=== PATIENT | male | born 1975 | race Caucasian/White ===

== ENCOUNTER 2022-12-19 10:10 | Inpatient (IN) | payer BC ==
[2022-12-19] MEDS ORDERED: SODIUM CHLORIDE 0.9% 1,000 ML IV STA ×2 (10:22→12:34)
--- NOTE | 2022-12-19 10:28 | ED ---
General Adult HPI - General Chief complaint: Neuro Symptoms/Deficit Stated complaint: R arm numb Time Seen by Provider: 12/19/22 10:22 Source: patient Mode of arrival: ambulatory Limitations: no limitations - History of Present Illness Initial comments: Dictation was produced using [employer] dictation software. please excuse any grammatical, word or spelling errors. Chief Complaint: 47-year-old male with no significant past nuchal history presents with right hand numbness and weakness History of Present Illness: She is a 47-year-old male presents emergency Department with right hand weakness and numbness. His symptoms initially p resented a week ago with some very mild paresthesias. Went to see a chiropractor where they suspected was a pinched nerve. Symptoms seemed to have resolved. Yesterday symptoms recurred seem like they're worse when compared to how they initially presented. Patient complains of significant weakness with physicist acoustics strength to his right hand. Complains of complete numbness from his distal forearm down. at the bedside reports that he seems like equilibrium is off. Patient has any headache. The ROS documented in this emergency department record has been reviewed and confirmed by me. Those systems with pertinent positive or negative responses have been documented in the HPI. All other systems are other negative and/or noncontributory. - Related Data Allergies Allergy/AdvReac Type Severity Reaction Status Date / Time No Known Allergies Allergy Verified 12/19/22 10:15 Review of Systems ROS Statement: Those systems with pertinent positive or pertinent negative responses have been documented in the HPI. ROS Other: All systems not noted in ROS Statement are negative. Past Medical History Past Medical History: No Reported History History of Any Multi-Drug Resistant Organisms: None Reported Past Surgical History: No Surgical Hx Reported Past Psychological History: No Psychological Hx Reported Smoking Status: Current every day smoker Past Alcohol Use History: Daily, Heavy Past Drug Use History: Marijuana General Exam - General Exam Comments Initial Comments: PHYSICAL EXAM: General Impression: Alert and oriented x3, not in acute distress HEENT: Normocephalic atraumatic, extra-ocular movements intact, pupils equal and reactive to light bilaterally, mucous membranes moist. Cardiovascular: Heart regular rate and rhythm Chest: Able to complete full sentences, no retractions, no tachypnea Abdomen: abdomen soft, non-tender, non-distended, no organomegaly Musculoskeletal: Pulses present and equal in all extremities, no peripheral edema Motor: no focal deficits noted Neurological: CN II-XII grossly intact, significantly decreased physicist acoustics showing with the right hand compared to the left, does have mild difficulty with gait, mildly ataxic to the right upper extremity Skin: Intact with no visualized rashes Psych: Normal affect and mood Limitations: no limitations Course Vital Signs 12/19/22 12/19/22 12/19/22 10:12 10:30 10:45 Temperature 97.6 F Pulse Rate 90 84 80 Respiratory 18 16 18 Rate Blood Pressure 169/96 149/91 165/96 O2 Sat by Pulse 99 97 98 Oximetry 12/19/22 12/19/22 12/19/22 11:15 11:30 11:45 Temperature Pulse Rate 70 71 70 Respiratory 18 16 16 Rate Blood Pressure 147/89 139/82 156/86 O2 Sat by Pulse 96 96 95 Oximetry 12/19/22 12:00 Temperature Pulse Rate 69 Respiratory 16 Rate Blood Pressure 160/87 O2 Sat by Pulse 98 Oximetry - Reevaluation(s) Reevaluation #1: 12/19/22 10:27 Patient seen and evaluated in room 2. Vital signs from triage were reviewed to be within acceptable limits. Patient not a candidate for alteplase due to low NIH score and last normal outside the window. Recently the benefits for alteplase administration. 12/19/22 10:27 Reevaluation #2: 12/19/22 11:36 Construct paged. Case discussed with on-call stroke neurologist, Dr. Henao. He did not feel patient was a candidate for acute transfer for emergent endovascular procedure. Recommends patient be started on aspirin, ticagrelor, statin and to have an outpatient angiogram EKG Findings - EKG Comments: EKG Findings:: My EKG interpretation: Ventricular rate 84, sinus rhythm,. 197, QRS 100, QTC 385. No NC prolongation, no QTC prolongation, no ST or T-wave changes noted. Overall, this EKG is unremarkable Medical Decision Making - Medical Decision Making Was pt. sent in by a medical professional or institution (, PA, WIRE SETTER, urgent care, hospital, or alf...) When possible be specific @ -No Did you speak to anyone other than the patient for history (EMS, parent, family, police, friend...)? What history was obtained from this source @ - at the bedside reports that patient appears slightly ataxic Did you review nursing and triage notes (agree or disagree)? Why? @ -I reviewed and agree with nursing and triage notes Were old charts reviewed (outside hosp., previous admission, EMS record, old EKG, old radiological studies, urgent care reports/EKG's, alf records)? Report findings @ -No old charts were reviewed Differential Diagnosis (chest pain, altered mental status, abdominal pain women, abdominal pain men, vaginal bleeding, musculoskeletal, weakness, fever, dyspnea, syncope, headache, dizziness, GI bleed, back pain, seizure, CVA, palpatations, mental health)? @ - Differential CVA: Ischemic stroke, hemorrhagic stroke, brain tumor, atypical migraine, Wernicke's encephalopathy, seizure, multiple sclerosis, meningitis, encephalitis, hypoglycemia, Guillain-Serrano, electrolytes disturbance, myasthenia gravis.... This is not meant to be an all-inclusive list EKG interpreted by me (3pts min.). @ -See above X-rays interpreted by me (1pt min.). @ -Chest x-ray was nonacute CT interpreted by me (1pt min.). @ -CT Angiography shows left MCA occlusion U/S interpreted by me (1pt. min.). @ -None done What testing was considered but not performed or refused? (CT, X-rays, U/S, labs)? Why? @ -None What meds were considered but not given or refused? Why? @ -Alteplase was considered however patient outside the window for safe administration. Risks outweigh benefits Did you discuss the management of the patient with other professionals (professionals i.e. , PA, WIRE SETTER, lab, RT, psych nurse, secondary social studies teacher, product representative, teacher, dental officer, returned case inspector)? Give summary @ -See above. Case discussed with multiple specialists and Dr. Mason for admission. Was smoking cessation discussed for >3mins.? @ -No Was critical care preformed (if so, how long)? @ -yes, 33 minutes Were there social determinants of health that impacted care today? How? (Homelessness, low income, unemployed, alcoholism, drug addiction, transportation, low edu. Level, literacy, decrease access to med. care, retirement, rehab)? @ -No Was there de-escalation of care discussed even if they declined (Discuss DNR or withdrawal of care, Hospice)? DNR status @ -No What co-morbidities impacted this encounter? (DM, HTN, Smoking, COPD, CAD, Cancer, CVA, ARF, Chemo, Hep., AIDS, mental health diagnosis, sleep apnea, morbid obesity)? @ -None Was patient admitted / discharged? Hospital course, mention meds given and route, prescriptions, significant lab abnormalities, going to OR and other pertinent info. @ -47-year-old male presents with ongoing strokelike symptoms. Patient had a candidate for aggressive intervention. Vital signs stable. CT angiography showed left MCA occlusion. Case is discussed with stroke neurologist. Plan was to have patient admitted here for MRI, neurology consultation and further care. Undiagnosed new problem with uncertain prognosis? @ -No Drug Therapy requiring intensive monitoring for toxicity (Heparin, Nitro, Insulin, Cardizem)? @ -No Were any procedures done? @ -No Diagnosis/symptom? Acute, or Chronic, or Acute on Chronic? Uncomplicated (without systemic symptoms) or Complicated (systemic symptoms)? @ -1. Left MCA occlusion Side effects of treatment? @ -No Exacerbation, Progression, or Severe Exacerbation? @ -No Poses a threat to life or bodily function? How? (Chest pain, [place], [place], pneumonia, PE, COPD, DKA, ARF, appy, cholecystitis, CVA, Diverticulitis, Homicidal, Suicidal, threat to staff... and all critical care pts) @ -yes - Lab Data Result diagrams: 12/19/22 10:27 12/19/22 10:27 Lab Results 12/19/22 12/19/22 12/19/22 Range/Units 10:27 10:27 10:27 WBC 7.2 (3.8-10.6) k/uL RBC 5.15 (4.30-5.90) m/uL Hgb 16.2 (13.0-17.5) gm/dL Hct 47.6 (39.0-53.0) % MCV 92.4 (80.0-100.0) fL MCH 31.4 (25.0-35.0) pg MCHC 34.0 (31.0-37.0) g/dL RDW 12.7 (11.5-15.5) % Plt Count 312 (150-450) k/uL MPV 7.7 Neutrophils % 70 % Lymphocytes % 18 % Monocytes % 7 % Eosinophils % 1 % Basophils % 1 % Neutrophils # 5.1 (1.3-7.7) k/uL Lymphocytes # 1.3 (1.0-4.8) k/uL Monocytes # 0.5 (0-1.0) k/uL Eosinophils # 0.1 (0-0.7) k/uL Basophils # 0.1 (0-0.2) k/uL PT 10.3 (9.0-12.0) sec INR 1.0 (<1.2) APTT 23.6 (22.0-30.0) sec Sodium 136 L (137-145) mmol/L Potassium 3.8 (3.5-5.1) mmol/L Chloride 102 (98-107) mmol/L Carbon Dioxide 23 (22-30) mmol/L Anion Gap 11 mmol/L BUN 13 (9-20) mg/dL Creatinine 0.65 L (0.66-1.25) mg/dL Est GFR (CKD-EPI)AfAm >90 (>60 ml/min/1.73 sqM) Est GFR (CKD-EPI)NonAf >90 (>60 ml/min/1.73 sqM) Glucose 281 H (74-99) mg/dL Calcium 9.1 (8.4-10.2) mg/dL Total Bilirubin 0.6 (0.2-1.3) mg/dL AST 19 (17-59) U/L ALT 20 (4-49) U/L Alkaline Phosphatase 90 (38-126) U/L Creatine Kinase 125 (55-170) U/L Troponin I (0.000-0.034) ng/mL Total Protein 7.0 (6.3-8.2) g/dL Albumin 4.2 (3.5-5.0) g/dL 12/19/22 Range/Units 10:27 WBC (3.8-10.6) k/uL RBC (4.30-5.90) m/uL Hgb (13.0-17.5) gm/dL Hct (39.0-53.0) % MCV (80.0-100.0) fL MCH (25.0-35.0) pg MCHC (31.0-37.0) g/dL RDW (11.5-15.5) % Plt Count (150-450) k/uL MPV Neutrophils % % Lymphocytes % % Monocytes % % Eosinophils % % Basophils % % Neutrophils # (1.3-7.7) k/uL Lymphocytes # (1.0-4.8) k/uL Monocytes # (0-1.0) k/uL Eosinophils # (0-0.7) k/uL Basophils # (0-0.2) k/uL PT (9.0-12.0) sec INR (<1.2) APTT (22.0-30.0) sec Sodium (137-145) mmol/L Potassium (3.5-5.1) mmol/L Chloride (98-107) mmol/L Carbon Dioxide (22-30) mmol/L Anion Gap mmol/L BUN (9-20) mg/dL Creatinine (0.66-1.25) mg/dL Est GFR (CKD-EPI)AfAm (>60 ml/min/1.73 sqM) Est GFR (CKD-EPI)NonAf (>60 ml/min/1.73 sqM) Glucose (74-99) mg/dL Calcium (8.4-10.2) mg/dL Total Bilirubin (0.2-1.3) mg/dL AST (17-59) U/L ALT (4-49) U/L Alkaline Phosphatase (38-126) U/L Creatine Kinase (55-170) U/L Troponin I <0.012 (0.000-0.034) ng/mL Total Protein (6.3-8.2) g/dL Albumin (3.5-5.0) g/dL Disposition Clinical Impression: Cerebrovascular accident (CVA) Disposition: ADMITTED IP TO THIS [facility] Condition: Serious Referrals: Da Duran MD [Primary Care Provider] - 1-2 days Decision Time: 12:36
[2022-12-19 10:50] LABS: Basophils # (A) 0.1 k/uL (0-0.2); Basophils % (A) 1 %; Eosinophils # (A) 0.1 k/uL (0-0.7); Eosinophils % (A) 1 %; HCT 47.6 % (39.0-53.0); HGB 16.2 gm/dL (13.0-17.5); Lymphocytes # (A) 1.3 k/uL (1.0-4.8); Lymphocytes % (A) 18 %; MCH 31.4 pg (25.0-35.0); MCV 92.4 fL (80.0-100.0); Mean Platelet Volume 7.7; Monocytes # (A) 0.5 k/uL (0-1.0); Monocytes % (A) 7 %; Neutrophils # (A) 5.1 k/uL (1.3-7.7); Neutrophils % (A) 70 %; Platelet Count 312 k/uL (150-450); RBC 5.15 m/uL (4.30-5.90); RDW 12.7 % (11.5-15.5); WBC 7.2 k/uL (3.8-10.6)
[2022-12-19 11:00] LABS: ALT 20 U/L (4-49); AST 19 U/L (17-59); African American GFR (CKD) >90 (>60 ml/min/1.73 sqM); Albumin 4.2 g/dL (3.5-5.0); Alkaline Phosphatase 90 U/L (38-126); Anion Gap 11 mmol/L; Blood Urea Nitrogen 13 mg/dL (9-20); Calcium 9.1 mg/dL (8.4-10.2); Carbon Dioxide 23 mmol/L (22-30); Chloride 102 mmol/L (98-107); Creatine Kinase 125 U/L (55-170); Glucose 281 mg/dL (74-99); Non-African American GFR(CKD) >90 (>60 ml/min/1.73 sqM); Partial Thromboplastin Time 23.6 sec (22.0-30.0); Potassium 3.8 mmol/L (3.5-5.1); Prothrombin Time 10.3 sec (9.0-12.0); Sodium 136 mmol/L (137-145); Total Bilirubin 0.6 mg/dL (0.2-1.3)
--- NOTE | 2022-12-19 11:01 | XR ---
EXAMINATION TYPE: XR chest 2V DATE OF EXAM: 12/19/2022 10:51 AM COMPARISON: None TECHNIQUE: XR chest 2V Frontal and lateral views of the chest. CLINICAL INDICATION:Male, 47 years old with history of altered mental status; FINDINGS: Lungs/Pleura: There is no evidence of pleural effusion, focal consolidation, or pneumothorax. Pulmonary vascularity: Unremarkable. Heart/mediastinum: Cardiomediastinal silhouette is unremarkable. Musculoskeletal: No acute osseous pathology. IMPRESSION: No acute cardiopulmonary disease/process.
--- NOTE | 2022-12-19 11:14 | CT ---
EXAMINATION TYPE: CT angio head neck CT DLP: 1663.2 mGycm, Automated exposure control for dose reduction was used. DATE OF EXAM: 12/19/2022 11:02 AM COMPARISON: None. CLINICAL INDICATION:Male, 47 years old with history of Neuro deficit, acute, stroke suspected; PHH, r ight arm numbness TECHNIQUE: Axially acquired helical CT angiogram of the head and neck was obtained with contrast. Axi al images are supplemented with 3D reconstructions [facility] NASCET criteria used. Contrast used:65 mL of Isovue 370 with IV Contrast, Oral contrast used: None. FINDINGS: CTA HEAD: No evidence of acute intracranial hemorrhage, mass effect, or midline shift. The ventricles, sulci, a nd cisterns are unremarkable. The visualized portions of the middle cerebral arteries, anterior cerebral arteries, and posterior ce rebral arteries are patent. Areas of narrowing of the internal carotid arteries are described below. The basilar and vertebral arteries are patent. CTA NECK: Right Carotid System: The common carotid artery and external carotid artery are patent. The carotid bifurcation demonstrate s no evidence of hemodynamically significant stenosis. The remaining portions of the internal carotid artery demonstrate high-grade stenosis in the most cephalad cervical portion as it enters the petrou s portion series 506 image 17 with at least 70% stenosis as well as another area as it enters the cav ernous portion of at least 70%. Left Carotid System: Common carotid artery is patent. There is occlusion of the internal carotid artery just past its orig in series 501 image 89 and extends into the intracranial portion with reconstitution at the level its cavernous sinus. The cavernous portion also demonstrates short segment of high-grade stenosis of at least 70% Vertebral arteries are patent without evidence hemodynamically significant stenosis. There is a three-vessel aortic arch. The origins of the great vessels are patent. No evidence of hemo dynamically significant stenosis. IMPRESSION: 1. Occluded left internal carotid artery extending just past its origin to the cavernous portion wit h reconstitution. 2. The right internal carotid artery high-grade stenosis as it enters the petrous portion of at leas t 70% as well as an additional area of high-grade stenosis involving the cavernous portion of at leas t 70%. 3. The remainder of the vessels demonstrate no evidence for aneurysmal dilation or high-grade stenos is. Attempted to communicate to Dr. Tone Golden, on 12/19/2022 11:[address] Demetri Richardson.
[2022-12-19] MEDS ORDERED: ASPIRIN 81 MG PO STA (11:34)
[2022-12-19] MEDS ORDERED: NALOXONE 0.4 MG/ML 1 ML VIAL IV PRN (12:31)
[2022-12-19] MEDS: SODIUM CHLORIDE 0.9% 1,000 ML IV SCH (12:40)
[2022-12-19] MEDS ORDERED: TICAGRELOR 90 MG TAB PO STA (13:06)
[2022-12-19] MEDS ORDERED: ATORVASTATIN 80 MG TAB PO STA (15:13)
[2022-12-19] MEDS ORDERED: DEXTROSE 50% SYRINGE 50 ML IVP PRN ×2 (15:15)
--- NOTE | 2022-12-19 15:21 | P.CNNES ---
History of Present Illness Consult date: 12/19/22 Requesting physician: Tone Golden Reason for Consult: cva History of Present Illness: This is a 47-year-old gentleman with history of hypertension, tobacco use, alcohol use who presented emergency department because of right hand weakness and numbness. Patient stated that about 10 days ago he had numbness of the ri ght hand so about a days ago he went to the chiropractor and had neck manipulation and felt his numbness improved but then this past Tuesday he noticed his right hand was weak and what happened around nighttime so he waved it off taking it's can improve. They continue to have right hand weakness as well as numbness so he finally was convinced to come to the hospital to address this duration. It seems his symptoms of right hand weakness from the neck manipulation was about about 6 days ago. He denies of any neck pain. Denies of the any speech difficulty, weakness in the lower extremity or any numbness anywhere. Denies any difficulties longer periods any visual disturbance. He denies history of stroke or TIA. He stated that the he was told he had hypertension when he gets his blood pressure check and that was a couple years ago but sometimes is normal and he is not on any medication and he does not follow-up with his PCP in last time was a couple years back. He smokes a pack and a half cigarettes daily. He drinks 6 beers of alcohol daily. He is unsure about other medical issues since she does not follow-up with the primary care. Patient uses marijuana but denies any illicit drug use. He states that his grandfather had heart attack in his late 40s. Some of the workup during his hospital visit consisted of: Initial blood pressure is 169/96 and his systolic blood pressure has been in the 140s-160's. CBC with differential is unremarkable Stroke code was activated by the ED team Chemistry panel sodium is 136, glucose is 281 otherwise rest of the chemistry panel is unremarkable EKG is reported as incomplete right bundle branch block. Inferior myocardial infarction of indeterminate age and abnormal EKG. CT angiography of the head and neck is reported as occluded left internal carotid artery extending just past its origin to the cavernous portion with reconstitution. There is a right internal carotid artery high-grade as it enters the petrous portion at least 70% as well as additional area of high-grade stenosis involving the cavernous portion of at least 70%. Remainder of the vessel demonstrate no evidence for aneurysm dilation or high-grade stenosis. ED team spoke with the stroke attending (Dr. Trent) and no IV TPA since the patient's last normal state is more than 4-1/2 hours ago (>24 hours ago). Regarding his abnormal left ICA occlusion and significant right ICA stenosis at the cavernous portion, no intervention and was told by Dr. Trent that pain MRI the brain, start the patient on aspirin, Brilinta and Lipitor according to ED physician. Of note, ED noted that patient has left MCA occlusion that he was notified by [place] radiologist but ED physician notified me that he mistyped it and suppose to be left ICA. Review of Systems Review of system: The 12 point system was reviewed and apparent positive and negative per HPI. Past Medical History Past Medical History: No Reported History History of Any Multi-Drug Resistant Organisms: None Reported Past Surgical History: No Surgical Hx Reported Past Psychological History: No Psychological Hx Reported Smoking Status: Current every day smoker Past Alcohol Use History: Daily, Heavy Past Drug Use History: Marijuana Medications and Allergies Home Medications Medication Instructions Recorded Confirmed Type Omeprazole Magnesium [PriLOSEC OTC] 20 mg PO DAILY 12/19/22 12/19/22 History Allergies Allergy/AdvReac Type Severity Reaction Status Date / Time No Known Allergies Allergy Verified 12/19/22 13:14 Physical Examination - Vital Signs Vital Signs: Vital Signs Temp Pulse Resp BP Pulse Ox 12/19/22 13:10 67 18 141/79 96 12/19/22 12:00 69 16 160/87 98 12/19/22 11:45 70 16 156/86 95 12/19/22 11:30 71 16 139/82 96 12/19/22 11:15 70 18 147/89 96 12/19/22 10:45 80 18 165/96 98 12/19/22 10:30 84 16 149/91 97 12/19/22 10:12 97.6 F 90 18 169/96 99 Intake and Output 12/18/22 12/19/22 12/19/22 22:59 06:59 14:59 Other: Weight 90.718 kg GENERAL: The patient is lying in bed and is not in acute distress. CHEST: The heart rate is regular rate rhythm. LUNG: Not labored breathing. ABDOMEN/GI: Bowel sounds present in all 4 quadrants. No tenderness to palpation throughout. NEUROLOGICAL: Higher mental function: The patient is awake, alert, oriented to self, place and time. Patient is following commands. No aphasia and no neglect. Cranial nerves: The pupils are round, equal and reactive to light and accommodation. Visual ghosh are full to confrontation throughout. Extraocular movement is intact no nystagmus is noted. Facial sensation is normal to touch throughout. The facial strength is normal throughout. Hearing is normal bilaterally to hand rub. Tongue is midline and moved [id number] without any difficulty. No dysarthria is noted. Shoulder shrug is normal bilaterally. Motor: The strength is right hand is 4- . Otherwise 5 over 5 throughout. Normal tone and bulk. Cerebellum: Hard to perform on right because of weakness hand. Normal finger to nose on left. Sensation: Sensation is decrease to touch over the right hand. Reflexes (right/left): 2+ throughout. Plantars are mute bilaterally. Results - Laboratory Findings CBC and BMP: 12/19/22 10:27 12/19/22 10:27 Abnormal Lab Findings: Abnormal Labs 12/19/22 10:27 Sodium 136 L Creatinine 0.65 L Glucose 281 H Assessment and Plan Assessment: This is a 47-year-old gentleman with hypertension, tobacco use, alcohol use, not any medication and does not follow up with physician who had numbness of the hands about 10 days ago as a results about 8 days ago he had his neck manipulation but about 2 days ago he noticed he weakness of the right hand as well as numbness and has not improved. Denies of neck pain. Acute ischemic stroke (right hand weakness and numness). Has occlusion of left ICA extending past origin cavernous portion. Unsure if due to his multiple risk factors (HTN and not on medications, tobacco use, significant alcohol use, not following-up with PCP and with early family history of cardiovascular) vs due to recent neck mannipulation but latter seems low since he was doing well until 6 days later and no dissection on CTA. Left ICA 70% supraclinoid and occlusion of left ICA extending past origin cavernous portion. Hypertension and no on medication Tobacco use (smoke 1 1/2 packs daily) Alcohol use (drinks 6 can beers daily) Early family history of cardiovascular disease (Grandfather has [place] in late 40's) Plan: According to ED, Dr. Trent (stroke/interventional neurologist) stated no intervention and recommended ASA, Brilinta, Lipitor and MRI. So I started the patient on Brilinta 90mg 1 tab bid with loading of 180mg, ASA 81mg daily and was given ASA 324mg once in ED. Gave loading dose of Lipitor 80mg once then 80mg qhs. I ordered MRI of the brain, MRA of the head and neck stat. The brain is ordered to rule out stroke while the MRA of the head and neck is to rule out any occlusion or significant stenosis or any dissection. Consulted vascular surgery team for his the internal carotid stenosis/occlusion Recommend permissive hypertension for 48 hours. Treat the blood pressure if systolic more than 220 or diastolic is more than 110. Every 4 hours neuro checks On cardiac monitoring Consulted PT and OT and [employer] Ordered UDS, alcohol level, TSH, HbA1c, lipid panel. Ordered 2-D echo with bubble study I started the patient on thiamine 100 mg daily. Watch out for withdrawal since patient drinks 6 beers daily. Ordered hypercoagulable workup: MATTHEW, anti-thrombin 3 antigen/activity, ESR, factor V Leiden, homocysteine, lupus anticoagulant, prothrombin 50499, von Willebrand. Consider ordering Protein C/S if other work-up does not reveal cause of stroke. Consulted physical therapy, occupational therapy and speech therapy EKG shows right bundle ford block as well as inferior myocardial infarction of indeterminate age, and recommend consulting cardiology team especially with early family history of cardiac disease. Patient was counseled on tobacco cessation. We'll defer the rest of the medical medical the primary team For DVT prophylaxis: Started on subq heparin 5000U every 8 hours. The plan discussed with the patient and his was at bedside as well as the his nurse Thank you for the consultation Dr. Grissom will start neurology service tomorrow A.M. Time with Patient: Greater than 30
[2022-12-19] MEDS: THIAMINE 100 MG TAB PO SCH (15:23)
[2022-12-19] MEDS: HEPARIN SODIUM,PORCINE/PF 5,000 UNIT/0.5 ML SYRINGE SQ SCH (15:23)
[2022-12-19 15:49] LABS: Amphetamine Screen,Urine Not Detected (NotDetected); Barbiturate Screen,Urine Not Detected (NotDetected); Benzodiazepines Screen,Urine Not Detected (NotDetected); Cocaine Screen,Urine Not Detected (NotDetected); Methadone Screen, Urine Not Detected (NotDetected); Opiate Screen,Urine Not Detected (NotDetected); Oxycodone Screen, Urine Not Detected (NotDetected); Phencyclidine Screen,Urine Not Detected (NotDetected); Tricyclic Antidepressant,Urine Not Detected (NotDetected); Urn Cannabinoid Scrn Detected (NotDetected)
--- NOTE | 2022-12-19 16:22 | US ---
EXAMINATION TYPE: US carotid duplex BILAT DATE OF EXAM: 12/19/2022 COMPARISON: CTA head and neck 12/11/2022 CLINICAL INDICATION: Male, 47 years old with history of stroke; stroke ICA occluded follow up to CTA. TECHNIQUE: Carotid duplex ultrasound examination. Indirect Doppler criteria was utilized. FINDINGS: EXAM MEASUREMENTS: RIGHT: Peak Systolic Velocity (PSV) cm/sec ----- Right CCA: 102.2 ----- Right ICA: 88.4 ----- Right ECA: 147.5 ICA/CCA ratio: 0.9 RIGHT: End Diastole cm/sec ----- Right CCA: 27.4 ----- Right ICA: 39.2 ----- Right ECA: 27.4 LEFT: Peak Systolic Velocity (PSV) cm/sec ----- Left CCA: 76.6 ----- Left ICA: Occluded ----- Left ECA: 172.5 ICA/CCA ratio: N/A LEFT: End Diastole cm/sec ----- Left CCA: 13.6 ----- Left ICA: Occluded ----- Left ECA: 24.8 VERTEBRALS (direction of flow): Right Vertebral: Antegrade Left Vertebral: Antegrade Rhythm: Normal ADMITTING INTERVIEWER NOTES: Left ICA occluded. All atherosclerotic plaquing at the right carotid bulb and mid common carotid artery. Mild calcified atherosclerosis at the left carotid bulb. IMPRESSION: 1. Occluded left internal carotid artery, as characterized on earlier CTA head/neck. 2. No evidence for high-grade stenosis involving the visualized segments of the right carotid arterie s. 3. Bilateral atherosclerosis of the carotid bulbs and right common carotid artery. Criteria for Assigning % of Stenosis / Diameter reduction (Estimation based on the indirect measurements of the internal carotid artery velocities (ICA PSV). 1. Normal (no stenosis)=ICA PSV < 125 cm/s: ratio < 2.0: ICA EDV<40 cm/s. 2. Less than 50% stenosis=ICA PSV < 125 cm/s: ratio < 2.0: ICA EDV<40 cm/s. 3. 50 to 69% stenosis=ICA PSV of 125 to 230 cm/s: ration 2.0 ? 4.0: ICA EDV 40-100 cm/s. 4. Greater than 70% stenosis to near occlusion= ICA PSV > 230 cm/s: ratio > 4.0: ICA EDV > 100 cm/s. 5. Near occlusion= ICA PSV velocities may be low or undetectable: variable ratio and ICA EDV. 6. Total occlusion=unable to detect flow.
[2022-12-19] MEDS: INSULIN ASPART (NovoLOG) 100 UNIT/ML VIAL SQ SCH ×2 (18:37→21:05)
[2022-12-19 19:53] LABS: Glucose,Whole Blood 258 mg/dL (70-110)
[2022-12-19] MEDS ORDERED: ATORVASTATIN 80 MG TAB PO SCH (21:00)
[2022-12-19] MEDS: TICAGRELOR 90 MG TAB PO SCH (21:05)
[2022-12-19 22:58] LABS: Homocysteine 7.55 umol/L (4.00-14.00)
--- NOTE | 2022-12-20 02:13 | P.HPIM ---
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 Patient states that initially his symptoms started about a week ago with some very mild paresthesias. Went to see a chiropractor. This suspected as a pinched nerve. Patient started having symptoms since Tuesday morning and worse compared to initial presentation. Patient states that he is also having off equilibrium. Denies any complaints of neck stiffness. No headache. No fever no chills. Denies any cough or sputum production. Patient does smoke on daily basis and also drinks heavily. Occasional marijuana use. Patient has not follow-up with primary care physician recently. CT angiogram showed occluded left internal carotid artery extending just past 2001 the cavernous portion with reconstitution. Right ICA high-grade stenosis Chest x-ray showed no acute cardiopulmonary process. EKG showed incomplete right bundle branch block, inferior OR of indeterminate age. Laboratory data showed WBC 7.2 hemoglobin 16.2 and platelets 312 Sodium 136 potassium 3.8 chloride 102 bicarb is 23 blood sugar is 281. Liver enzymes are not elevated, troponin x1 negative and TSH 0.536 and UDS is positive for marijuana Review of Systems Constitutional: Patient denies any fever or chills . no Generalized weakness. Abdomen: Patient denied any nausea or vomiting or abd. pain Cardiovascular: Patient denies any chest pain or short of breath no palpitations. Respiratory: patient denied any cough . no sputum production. No shortness of breath Neurologic: Patient does have right arm weakness and numbness. No headache. Musculoskeletal: Patient denies any complaints of joint swelling or deformity. Skin: Negative Psychiatric: Negative Endocrine: No heat or cold intolerance. No recent weight gain. Genitourinary: No dysuria or hematuria. All other 14 point ROS negative except the above Past Medical History Past Medical History: No Reported History History of Any Multi-Drug Resistant Organisms: None Reported Past Surgical History: No Surgical Hx Reported Past Psychological History: No Psychological Hx Reported Smoking Status: Current every day smoker Past Alcohol Use History: Daily, Heavy Past Drug Use History: Marijuana - Past Family History Mother Family Medical History: Myocardial Infarction (OR) Additional Family Medical History / Comment(s): pts maternal gradfather in his 40;s from a heart attack Medications and Allergies Home Medications Medication Instructions Recorded Confirmed Type Omeprazole Magnesium [PriLOSEC OTC] 20 mg PO DAILY 12/19/22 12/19/22 History Allergies Allergy/AdvReac Type Severity Reaction Status Date / Time No Known Allergies Allergy Verified 12/19/22 13:14 Physical Exam Vitals: Vital Signs Temp Pulse Resp BP Pulse Ox 12/19/22 13:10 67 18 141/79 96 12/19/22 12:00 69 16 160/87 98 12/19/22 11:45 70 16 156/86 95 12/19/22 11:30 71 16 139/82 96 12/19/22 11:15 70 18 147/89 96 12/19/22 10:45 80 18 165/96 98 12/19/22 10:30 84 16 149/91 97 12/19/22 10:12 97.6 F 90 18 169/96 99 Intake and Output 12/19/22 12/19/22 12/19/22 06:59 14:59 22:59 Other: Weight 90.718 kg PHYSICAL EXAMINATION: Patient is lying in the bed comfortably, no acute distress, awake alert and orie nted.. HEENT: Normocephalic. Neck is supple. Pupils reactive. Nostrils clear. Oral cavity is moist. Neck reveals no JVD, carotid bruits, or thyromegaly. CHEST EXAMINATION: Trachea is central. Symmetrical expansion. Lung ghosh clear to auscultation and percussion. CARDIAC: Normal S1, S2 with no gallops. No murmurs ABDOMEN: Soft. Bowel sounds present. Nontender. No organomegaly. No abdominal bruits. Extremities: reveal no edema. No clubbing or cyanosis Neurologically awake, alert, oriented x3. 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 Psychiatric: Coperative. Nonsuicidal, Musculoskeletal: No joint swelling or deformity. Normal range of motion. Results CBC & Chem 7: 12/19/22 10:27 12/19/22 10:27 Labs: Abnormal Lab Results - Last 24 Hours (Table) 12/19/22 Range/Units 10:27 Sodium 136 L (137-145) mmol/L Creatinine 0.65 L (0.66-1.25) mg/dL Glucose 281 H (74-99) mg/dL Thrombosis Risk Factor Assmnt - DVT/VTE Prophylaxis DVT/VTE Prophylaxis: Pharmacologic Prophylaxis ordered Assessment and Plan Assessment: Right arm weakness and numbness likely due to acute CVA. Left ICA occlusion extending past the origin cavernous portion. Uncontrolled blood pressure. Newly diagnosed hypertension Hyperglycemia. New onset diabetes. Follow-up A1c level Ongoing nicotine addiction Heavy alcohol use Daily marijuana use Family history of premature coronary disease DVT prophylaxis with heparin subcu Plan: Patient will be continued on telemetry monitoring. Was seen by stroke intervention neurologist in the ER and no intervention was recommended. Patient was started on aspirin and Brilinta and statins. MRI of the brain and MRA of the head and neck was ordered stat. Neurology is on board. Permissive hypertension Continue with neurochecks Follow-up A1c level and insulin sliding scale and insulin regimen as needed PT OT and SCHOOL LABORATORY TECHNICIAN was consulted. 2D echocardiogram with bubble study to rule out PFO Continue to follow closely. Cardiology was consulted due to findings of inferior wall OR with intermediate days and family history of premature coronary disease. Prognosis guarded. Continue to monitor for alcohol withdrawal symptoms. Prognosis is guarded. Smoking cessation and alcohol abstinence has been counseled extensively. Time with Patient: Greater than 30
[2022-12-20] MEDS: HEPARIN SODIUM,PORCINE/PF 5,000 UNIT/0.5 ML SYRINGE SQ SCH ×4 (02:24→23:55)
[2022-12-20 05:53] LABS: Glucose,Whole Blood 226 mg/dL (70-110)
[2022-12-20] MEDS: INSULIN ASPART (NovoLOG) 100 UNIT/ML VIAL SQ SCH ×4 (06:17→20:09)
[2022-12-20] MEDS: THIAMINE 100 MG TAB PO SCH (08:20)
[2022-12-20] MEDS: ASPIRIN 81 MG PO SCH (08:20)
[2022-12-20] MEDS: TICAGRELOR 90 MG TAB PO SCH ×2 (08:20→20:09)
[2022-12-20 09:15] LABS: Chol/HDL Ratio 4.77 Ratio
[2022-12-20 11:54] LABS: Glucose,Whole Blood 339 mg/dL (70-110)
[2022-12-20] MEDS: SODIUM CHLORIDE 0.9% 1,000 ML IV SCH (14:00)
[2022-12-20 16:25] LABS: Glucose,Whole Blood 195 mg/dL (70-110)
--- NOTE | 2022-12-20 17:33 | P.PN ---
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 Patient states that initially his symptoms started about a week ago with some very mild paresthesias. Went to see a chiropractor. This suspected as a pinched nerve. Patient started having symptoms since Tuesday morning and worse compared to initial presentation. Patient states that he is also having off equilibrium. Denies any complaints of neck stiffness. No headache. No fever no chills. Denies any cough or sputum production. Patient does smoke on daily basis and also drinks heavily. Occasional marijuana use. Patient has not follow-up with primary care physician recently. CT angiogram showed occluded left internal carotid artery extending just past 2001 the cavernous portion with reconstitution. Right ICA high-grade stenosis Chest x-ray showed no acute cardiopulmonary process. EKG showed incomplete right bundle branch block, inferior ID of indeterminate age. Laboratory data showed WBC 7.2 hemoglobin 16.2 and platelets 312 Sodium 136 potassium 3.8 chloride 102 bicarb is 23 blood sugar is 281. Liver enzymes are not elevated, troponin x1 negative and TSH 0.536 and UDS is positive for marijuana 12/20/2022 Patient still complaining of from right hand weakness and the lesser degree numbness. Patient states it is the same since admission with no improvement or worsening. Also he denies any new complaint for me. He is sitting in chair looks comfortable. His parents at bedside. Blood pressure is still on the high side, 184/93, permissive hypertension as recommended by neurologist. Therefore we will start Norvasc 5 mg tomorrow for better blood pressure control area Now his MRI/A of the brain is pending as well as echocardiogram. Hyper coagulable workup ordered by neurologist is pending. Homocysteine is with her the reference range. Antithrombin III test is counseled. Other test is still pending. Patient denies any neck complaint, he was told about his blockages in his internal carotid artery, vascular surgery consult is pending. He remains on aspirin and Brillinta , risks benefits are explained for him in detail including but not limited to risk of bleeding and he verbalized understanding and acceptance EKG showing abnormal right bundle branch block and Q waves in the inferior leads, cardiology consult is recommended by neurologist which is ordered as well. Review of systems CONSTITUTIONAL: No fever, no malaise, no fatigue. HEENT: No recent visual problems or hearing problems. Denied any sore throat. CARDIOVASCULAR: No orthopnea, PND, no palpitations, no syncope. PULMONARY: No shortness of breath, no cough, no hemoptysis. GASTROINTESTINAL: No diarrhea, no nausea, no vomiting, no abdominal pain. Normoactive bowel sounds. GENITOURINARY: Denies any burning micturition, frequency, or urgency. MUSCULOSKELETAL/RHEUMATOLOGICAL: Denies any joint pain, swelling, or any muscle pain. ENDOCRINE: Denies any polyuria or polydipsia. Active Medications Generic Name Dose Route Start Last Admin Trade Name Freq PRN Reason Stop Dose Admin Amlodipine Besylate 5 mg 12/21/22 09:00 Amlodipine 5 Mg Tab PO DAILY GIRMA Aspirin 81 mg 12/20/22 09:00 12/20/22 08:20 Aspirin 81 Mg PO 81 mg DAILY GIRMA Administration Atorvastatin Calcium 80 mg 12/20/22 21:00 Atorvastatin 80 Mg Tab PO HS GIRMA Dextrose/Water 25 ml 12/19/22 15:15 Dextrose 50% Syringe 50 Ml IVP PER PROTOCOL PRN Hypoglycemia Protocol Dextrose/Water 50 ml 12/19/22 15:15 Dextrose 50% Syringe 50 Ml IVP PER PROTOCOL PRN Hypoglycemia Protocol Famotidine 20 mg 12/20/22 21:00 Famotidine 20 Mg/2 Ml Vial IV Q12HR GIRMA Heparin Sodium (Porcine) 5,000 unit 12/19/22 16:00 12/20/22 16:51 Heparin Sodium,Porcine/Pf 5,000 Unit/0.5 Ml Syringe SQ 5,000 unit Q8HR GIRMA Administration Sodium Chloride 1,000 mls @ 20 mls/hr 12/19/22 12:45 12/20/22 14:00 Saline 0.9% IV Not Given .Q24H GIRMA Insulin Aspart 0 unit 12/19/22 17:30 12/20/22 16:51 Insulin Aspart (Novolog) 100 Unit/Ml Vial SQ 1 unit ACHS GIRMA Administration Protocol Naloxone HCl 0.2 mg 12/19/22 12:31 Naloxone 0.4 Mg/Ml 1 Ml Vial IV Q2M PRN Opioid Reversal Thiamine HCl 100 mg 12/19/22 14:45 12/20/22 08:20 Thiamine 100 Mg Tab PO 100 mg DAILY GIRMA Administration Ticagrelor 90 mg 12/19/22 21:00 12/20/22 08:20 Ticagrelor 90 Mg Tab PO 90 mg BID GIRMA Administration Objective - Vital Signs Vital signs: Vital Signs Temp 98.2 F 12/20/22 08:00 Pulse 75 12/20/22 08:00 Resp 14 12/20/22 08:00 BP 175/98 12/20/22 08:00 Pulse Ox 97 12/20/22 08:00 FiO2 Intake & Output 12/19/22 12/20/22 12/20/22 18:59 06:59 18:59 Intake Total 540 200 Balance 540 200 Weight 90.718 kg Intake: Oral 540 200 Other: # Voids 2 - Labs CBC & Chem 7: 12/19/22 10:27 12/19/22 10:27 Labs: Abnormal Lab Results - Last 24 Hours (Table) 12/19/22 12/19/22 12/19/22 Range/Units 14:05 14:05 15:20 POC Glucose (mg/dL) (70-110) mg/dL Hemoglobin A1c 11.4 H (0.0-6.0) % Cholesterol 206.00 H (0.00-200.00) mg/dL LDL Cholesterol, Calc 141.0 H (0.0-131.0) mg/dL U Marijuana (THC) Screen Detected H (NotDetected) 12/19/22 12/20/22 12/20/22 Range/Units 19:51 05:52 11:51 POC Glucose (mg/dL) 258 H 226 H 339 H (70-110) mg/dL Hemoglobin A1c (0.0-6.0) % Cholesterol (0.00-200.00) mg/dL LDL Cholesterol, Calc (0.0-131.0) mg/dL U Marijuana (THC) Screen (NotDetected) Assessment and Plan Assessment: Acute stroke is suspected with acute right hand weakness and numbness Permissive hypertension Occluded left internal carotid artery and the result right internal carotid artery stenosis at 70% Right bundle-branch block with Q waves in the inferior limits Plan: Continue with aspirin and Brillinta Neurology consult is noted Vascular surgery and cartilage consult is ordered as well. Follow-up MRI of the brain, MRA of the brain Follow-up echocardiogram with bubble study ordered by neurologist Continue with Lipitor Start Norvasc and monitor blood pressure Labs and medication were reviewed.. Continue same treatment. Continue with symptomatic treatment. Resume home medication. Monitor labs and vitals. DVT and GI prophylaxis. Further recommendations as per clinical course of the patient DVT prophylaxis: Subcutaneous heparin GI Prophylaxis: Pepcid PT/OT: Pending Prognosis is guarded
[2022-12-20] MEDS: metFORMIN 500 MG TAB PO SCH (17:56)
[2022-12-20 19:54] LABS: Glucose,Whole Blood 232 mg/dL (70-110)
[2022-12-20] MEDS: FAMOTIDINE 20 MG/2 ML VIAL IV SCH (20:09)
[2022-12-20] MEDS: ATORVASTATIN 80 MG TAB PO SCH (20:09)
[2022-12-21 06:03] LABS: Glucose,Whole Blood 204 mg/dL (70-110)
[2022-12-21] MEDS: metFORMIN 500 MG TAB PO SCH ×2 (06:26→16:35)
[2022-12-21] MEDS: INSULIN ASPART (NovoLOG) 100 UNIT/ML VIAL SQ SCH ×5 (06:28→20:11)
[2022-12-21] MEDS ORDERED: amLODIPine 5 MG TAB PO SCH (09:00)
[2022-12-21 09:03] LABS: African American GFR (CKD) >90 (>60 ml/min/1.73 sqM); Anion Gap 9 mmol/L; Blood Urea Nitrogen 12 mg/dL (9-20); Calcium 9.2 mg/dL (8.4-10.2); Carbon Dioxide 26 mmol/L (22-30); Chloride 104 mmol/L (98-107); Glucose 208 mg/dL (74-99); Non-African American GFR(CKD) >90 (>60 ml/min/1.73 sqM); Sodium 139 mmol/L (137-145)
[2022-12-21] MEDS: amLODIPine 10 MG TAB PO SCH (09:03)
[2022-12-21] MEDS: FAMOTIDINE 20 MG/2 ML VIAL IV SCH ×2 (09:03→20:07)
[2022-12-21] MEDS: TICAGRELOR 90 MG TAB PO SCH ×2 (09:03→20:10)
[2022-12-21] MEDS: THIAMINE 100 MG TAB PO SCH (09:03)
[2022-12-21] MEDS: ASPIRIN 81 MG PO SCH (09:03)
[2022-12-21] MEDS: HEPARIN SODIUM,PORCINE/PF 5,000 UNIT/0.5 ML SYRINGE SQ SCH ×3 (09:03→23:37)
--- NOTE | 2022-12-21 09:03 | P.PN ---
Subjective Progress Note Date: 12/20/22 Patient was initially seen by Dr. Benoit Simpson, please refer to his note for details. Patient is a 47-year-old right-handed male, with multiple vascular risk factors including hypertension, uncontrolled diabetes, tobacco and alcohol use, started having right hand weakness late Tuesday night, early Tuesday morning. He stayed home on Tuesday and came to the hospital yesterday on Tuesday. Patient also has significant risk factors and was not taking care of himself. Patient has left ICA occlusion of the supraclinoid and right ICA stenosis and cavernous per CTA. No intervention recommended by neuro in tervention. Patient was on aspirin and Plavix, now switched to aspirin and Brilinta by Dr. Simpson.Patient denies any slurred speech, problem with the facial region, visual disturbance, or problem with balance or leg weakness. Patient had undergone neck manipulation by chiropractor last Tuesday on 0 12/14/2022. Patient denies any headaches or any neurological symptoms immediately after the adjustment. No headache at this time. Patient states that he has smoked 1-1/2 pack per day for 20 years, also drinks 5-6 beers per day. 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 Some of the workup during his hospital visit consisted of: Initial blood pressure is 169/96 and his systolic blood pressure has been in the 140s-160's. CBC with differential is unremarkable Stroke code was activated by the ED team Chemistry panel sodium is 136, glucose is 281 otherwise rest of the chemistry panel is unremarkable EKG is reported as incomplete right bundle branch block. Inferior myocardial infarction of indeterminate age and abnormal EKG. CT angiography of the head and neck is reported as occluded left internal carotid artery extending just past its origin to the cavernous portion with reconstitution. There is a right internal carotid artery high-grade as it enters the petrous portion at least 70% as well as additional area of high-grade stenosis involving the cavernous portion of at least 70%. Remainder of the vessel demonstrate no evidence for aneurysm dilation or high-grade stenosis. ED team spoke with the stroke attending (Dr. Trent) and no IV TPA since the patient's last normal state is more than 4-1/2 hours ago (>24 hours ago). Regarding his abnormal left ICA occlusion and significant right ICA stenosis at the cavernous portion, no intervention and was told by Dr. Trent that pain MRI the brain, start the patient on aspirin, Brilinta and Lipitor according to ED physician. Of note, ED noted that patient has left MCA occlusion that he was notified by [place] radiologist but ED physician notified me that he mistyped it and suppose to be left ICA. Objective - Vital Signs Vital signs: Vital Signs Temp 98.2 F 12/20/22 12:00 Pulse 70 12/20/22 12:00 Resp 20 12/20/22 12:00 BP 201/109 12/20/22 12:00 Pulse Ox 98 12/20/22 12:00 FiO2 Intake & Output 12/19/22 12/20/22 12/20/22 18:59 06:59 18:59 Intake Total 540 740 Balance 540 740 Weight 90.718 kg Intake: Oral 540 740 Other: # Voids 2 2 - Exam Patient is a middle aged male, in no acute distress. Patient is alert awake oriented to time place and person. Speech and language functions are normal. Patient can name and repeat very well. No aphasia, although patient may be minimally dysarthric. Attention, concentration and fund of knowledge is adequate. On cranial nerve examination, pupils are equal, round and reacting to light, visual ghosh are full on confrontation, with no neglect on double simultaneous stimulation. Extraocular muscles are intact with no nystagmus. Patient has right facial asymmetry with slight flattening of the right nasolabial fold. His tongue protrudes slightly to the right. Palatal elevation and sensation normal, hearing and shoulder shrug normal, facial sensation normal. On muscle strength testing, there is no pronator drift and the strength is normal in arms and legs distally and proximally, except right insecticide expert 5-as compared to the left which is normal. Patient has significantly decreased right finger tapping as compared to the left. Sensory to touch is equal with no neglect on double simultaneous stimulation. Cerebellar function showed no ataxia for [id number] testing. No dysdiadochokinesia. No ataxia for [id number] testing on either side. Tone and bulk of muscles normal. Gait deferred.. On general examination, there is no carotid bruit or murmur, S1-S2 audible. Chest is clear on consultation. Abdomen is soft nontender. No organomegaly, bowel sounds present. Peripheral pulses are present. No edema. - Labs CBC & Chem 7: 12/19/22 10:27 12/19/22 10:27 Labs: Abnormal Lab Results - Last 24 Hours (Table) 12/19/22 12/19/22 12/19/22 Range/Units 14:05 14:05 15:20 POC Glucose (mg/dL) (70-110) mg/dL Hemoglobin A1c 11.4 H (0.0-6.0) % Cholesterol 206.00 H (0.00-200.00) mg/dL LDL Cholesterol, Calc 141.0 H (0.0-131.0) mg/dL U Marijuana (THC) Screen Detected H (NotDetected) 12/19/22 12/20/22 12/20/22 Range/Units 19:51 05:52 11:51 POC Glucose (mg/dL) 258 H 226 H 339 H (70-110) mg/dL Hemoglobin A1c (0.0-6.0) % Cholesterol (0.00-200.00) mg/dL LDL Cholesterol, Calc (0.0-131.0) mg/dL U Marijuana (THC) Screen (NotDetected) Assessment and Plan Assessment: This is a 47-year-old gentleman with hypertension, tobacco use, alcohol use, not any medication and does not follow up with physician who had numbness and weakness of the right hand started 12/17/2022. Patient had his neck manipulation by chiropractor on 12/14/2022. No definitive evidence of carotid dissection noticed on CTA. Patient's weakness of the right hand as well as numbness and has not improved. Denies of neck pain or headache. Acute ischemic stroke (right hand weakness and numness). Has occlusion of left ICA extending past origin cavernous portion. Unsure if due to his multiple risk factors (HTN and not on medications, tobacco use, significant alcohol use, not following-up with PCP and with early family history of cardiovascular) vs due to recent neck mannipulation but latter seems low since no dissection on CTA and currently denies any headache or vascular features. Left ICA 70% supraclinoid and occlusion of left ICA extending past origin cavernous portion. Diabetes, poorly controlled Hypertension and no on medication Tobacco use (smoke 1 1/2 packs daily) Alcohol use (drinks 6 can beers daily) Early family history of cardiovascular disease (Grandfather has DE in late 40's) Plan: According to ED, Dr. Trent (stroke/interventional neurologist) stated no intervention and recommended ASA, Brilinta, Lipitor and MRI. Patient was started on Brilinta 90mg 1 tab bid with loading of 180mg, ASA 81mg daily and was given ASA 324mg once in ED. Gave loading dose of Lipitor 80mg once then 80mg qhs. Await MRI of the brain, MRA of the head and neck stat. The brain is ordered to rule out stroke while the MRA of the head and neck is to rule out any occlusion or significant stenosis or any dissection. Consulted vascular surgery team for his the internal carotid stenosis/occlusion Recommend permissive hypertension for 48 hours. Treat the blood pressure if systolic more than 220 or diastolic is more than 110. Every 4 hours neuro checks On cardiac monitoring Consulted PT and OT and [employer] UDS positive for marijuana, alcohol level < 10, TSH 0.536, HbA1c 11.4, consistent with poorly controlled diabetes, lipid panel cholesterol 260, LDL 141, HDL 43, triglycerides 109. Await 2-D echo with bubble study Continue thiamine 100 mg daily. Watch out for withdrawal since patient drinks 6 beers daily. Await hypercoagulable workup: MATTHEW, anti-thrombin 3 antigen/activity, ESR 7, factor V Leiden, homocysteine 7.55 normal, lupus anticoagulant, prothrombin [id number], von Willebrand. Consider ordering Protein C/S if other work-up does not reveal cause of stroke. Consulted physical therapy, occupational therapy and speech therapy Cardiology on board for abnormal EKG and especially with early family history of cardiac disease. Patient was counseled on tobacco and alcohol cessation. We'll defer the rest of the medical medical the primary team For DVT prophylaxis: Continue subq heparin 5000U every 8 hours.
--- NOTE | 2022-12-21 10:04 | P.GSCN ---
History of Present Illness Consult date: 12/21/22 Reason for Consult: Carotid stenosis Requesting physician: Benoit Simpson History of present illness: This is a pleasant 47-year-old male who presented to the emergency department on 12/19/2022 with complaints of right upper extremity numbness and weakness. Patient states symptoms began couple weeks ago he thought possibly a pinched nerve went to the chiropractor did get some relief however symptoms returned and were getting worse over the last few days duration. He states his grasp was getting weaker and he was having some difficulty with picking things up. He is right hand dominant. He denied any right lower extremity weakness and no other focal deficits. Patient states he had was told he had high blood pressure in the past however does not follow with a primary care physician regularly. He is on no current medications on admission. He does admit to smoking one and half packs per day of cigarettes and drinking approximately 6 beers daily, and using marijuana. He denies any chest pain, shortness of breath, abdominal pain, nausea or vomiting. States that he still is having some numbness in the right upper extremity and still having some weakness in his grasp although has improved since admission. Neurology was consulted for CVA. No CT of brain completed. Vascular surgery was then consulted for severe carotid stenosis. As part of his workup he had a CT angiogram head and neck which reported occluded left internal carotid artery extending just past its origin to the cavernous portion with reconstitution. Right internal carotid artery high-grade stenosis as it enters the petrous portion of at least 70% as well as an additional area of high-grade stenosis involving the cavernous portion at least 70%. The remainder vessels demonstrate no evidence for aneurysmal dilation or high-grade stenosis. Carotid duplex reports occluded left internal carotid artery. No evidence for high-grade stenosis involving visualized segments of the right carotid arteries. Bilateral arthrosclerosis of carotid bulbs and right common carotid artery. Review of Systems A 14 point review systems was completed all pertinent positives and negatives as stated in the HPI. Past Medical History Past Medical History: No Reported History Additional Past Medical History / Comment(s): pt states he has high blood pressure but does not take any medications for it History of Any Multi-Drug Resistant Organisms: None Reported Past Surgical History: No Surgical Hx Reported Additional Past Surgical History / Comment(s): pt states he had sleep apnea surgery Past Anesthesia/Blood Transfusion Reactions: No Reported Reaction Past Psychological History: No Psychological Hx Reported Smoking Status: Current every day smoker Past Alcohol Use History: Daily, Heavy Past Drug Use History: Marijuana - Past Family History Mother Family Medical History: Myocardial Infarction ([place]) Additional Family Medical History / Comment(s): pts maternal gradfather in his 40;s from a heart attack Medications and Allergies Home Medications Medication Instructions Recorded Confirmed Type Omeprazole Magnesium [PriLOSEC OTC] 20 mg PO DAILY 12/19/22 12/19/22 History Allergies Allergy/AdvReac Type Severity Reaction Status Date / Time No Known Allergies Allergy Verified 12/19/22 13:14 Surgical - Exam Vital Signs Temp Pulse Resp BP Pulse Ox 97.6 F 90 18 169/96 99 12/19/22 10:12 12/19/22 10:12 12/19/22 10:12 12/19/22 10:12 12/19/22 10:12 General appearance: The patient is alert, oriented, appears in no acute distress. HET: Head is normocephalic and atraumatic. Pupils are equal and reactive. Neck: Supple. Trachea midline. No audible carotid bruit. Heart: Regular. Lungs: Equal expansion, normal respiratory effort. Abdomen: Soft, nontender, nondistended. Extremities: Normal skin color and turgor. No cyanosis, rash, ulceration, clubbing, or edema. Bilateral +2 radial pulses. Neurological: Alert and oriented 3. Right hand grasp 4/5, left 5/5. Good tone bilateral upper and lower extremities. Bilateral lower extremity strength equal. Patient has facial symmetry, tongue protrudes midline, speech is fluent. Results - Labs 12/19/22 10:27 12/21/22 07:56 Abnormal Lab Results - Last 24 Hours (Table) 12/20/22 12/20/22 12/20/22 Range/Units 11:51 16:23 19:52 Glucose (74-99) mg/dL POC Glucose (mg/dL) 339 H 195 H 232 H (70-110) mg/dL 12/21/22 12/21/22 Range/Units 05:56 07:56 Glucose 208 H (74-99) mg/dL POC Glucose (mg/dL) 204 H (70-110) mg/dL Diabetes panel 12/21/22 Range/Units 07:56 Sodium 139 (137-145) mmol/L Potassium 4.0 (3.5-5.1) mmol/L Chloride 104 (98-107) mmol/L Carbon Dioxide 26 (22-30) mmol/L BUN 12 (9-20) mg/dL Creatinine 0.72 (0.66-1.25) mg/dL Glucose 208 H (74-99) mg/dL Calcium 9.2 (8.4-10.2) mg/dL Calcium panel 12/21/22 Range/Units 07:56 Calcium 9.2 (8.4-10.2) mg/dL Pituitary panel 12/21/22 Range/Units 07:56 Sodium 139 (137-145) mmol/L Potassium 4.0 (3.5-5.1) mmol/L Chloride 104 (98-107) mmol/L Carbon Dioxide 26 (22-30) mmol/L BUN 12 (9-20) mg/dL Creatinine 0.72 (0.66-1.25) mg/dL Glucose 208 H (74-99) mg/dL Calcium 9.2 (8.4-10.2) mg/dL Adrenal panel 12/21/22 Range/Units 07:56 Sodium 139 (137-145) mmol/L Potassium 4.0 (3.5-5.1) mmol/L Chloride 104 (98-107) mmol/L Carbon Dioxide 26 (22-30) mmol/L BUN 12 (9-20) mg/dL Creatinine 0.72 (0.66-1.25) mg/dL Glucose 208 H (74-99) mg/dL Calcium 9.2 (8.4-10.2) mg/dL Assessment and Plan Assessment: 1. Left internal carotid artery occlusion 2. Discordant findings of right ICA, reported 70% right ICA stenosis per CTA head and neck and no significant stenosis of the right ICA per carotid duplex 3. Right upper extremity weakness 4. Nicotine dependence 5. Alcohol dependence/abuse Plan: 1. MRA head and neck ordered per neurology 2. MRI brain ordered per neurology 3. Continue medical management with atorvastatin, aspirin, and Brilinta as ordered 4. Tobacco cessation 5. Alcohol abstinence 6. Await further recommendations from neurology 7. PT/OT 8. No indication for any vascular surgical intervention for left ICA occlusion. Await MRA head and neck findings. Further recommendations forthcoming. Thank you for this consultation, we will continue to follow. The impression and plan of care has been dictated as directed. Dr. Mooney I performed a history and examination of this patient, discussed the same with the dictator. I agree with the dictator's note ,documented as a scribe. Any additional findings or plans will be noted.
[2022-12-21 11:34] LABS: Glucose,Whole Blood 228 mg/dL (70-110)
--- NOTE | 2022-12-21 11:49 | CA ---
Transthoracic Echo Report Name: Mikhail Valencia Age: 47 Gender: M : 1975 Exam Date: 12/21/2022 08:20 Exam Location: [facility] Ht (in): 68 Wt (lb): 200 Ordering Physician: Benoit Simpson MD Attending/Referring Phys: Ceramic Restorer Catalina Magallon RDCS Procedure CPT: Indications: stroke. with bubble Cardiac Hx: Technical Quality: Good Contrast 1: Total Dose (mL): Contrast 2: Total Dose (mL): MEASUREMENTS (Male / Female) Normal Values 2D ECHO LV Diastolic Diameter PLAX 5.9 cm 4.2 - 5.9 / 3.9 - 5.3 cm LV Systolic Diameter PLAX 3.5 cm IVS Diastolic Thickness 1.3 cm 0.6 - 1.0 / 0.6 - 0.9 cm LVPW Diastolic Thickness 1.3 cm 0.6 - 1.0 / 0.6 - 0.9 cm LV Relative Wall Thickness 0.4 RV Internal Dim ED PLAX 3.8 cm LA Systolic Diameter LX 4.1 cm 3.0 - 4.0 / 2.7 - 3.8 cm LV Diastolic Volume MOD 4C 104.4 cm??? LV Systolic Volume MOD 4C 33.9 cm??? LV Ejection Fraction MOD 4C 67.5 % LV Diastolic Length 4C 8.8 cm LV Systolic Length 4C 6.8 cm LV Diastolic Volume MOD 2C 113.5 cm??? LV Systolic Volume MOD 2C 39.7 cm??? LV Ejection Fraction MOD 2C 65.0 % LV Diastolic Length 2C 8.4 cm LV Systolic Length 2C 6.6 cm LA Volume 74.7 cm??? 18 - 58 / 22 - 52 cm??? M-MODE LV Diastolic Diameter MM 5.9 cm 4.2 - 5.9 / 3.9 - 5.3 cm IVS Diastolic Thickness MM 1.5 cm 0.6 - 1.0 / 0.6 - 0.9 cm LVPW Diastolic Thickness MM 1.6 cm 0.6 - 1.0 / 0.6 - 0.9 cm LV Relative Wall Thickness MM 0.5 0.24 - 0.42 / 0.22 - 0.42 LV Mass Index MM 206.1 g/m??? 49 - 115 / 43 - 95 g/m??? Aortic Root Diameter MM 3.6 cm MV E Point Septal Separation 0.6 cm AV Cusp Separation MM 2.3 cm DOPPLER AV Peak Velocity 155.1 cm/s AV Peak Gradient 9.6 mmHg MV Area PHT 2.5 cm??? Mitral E Point Velocity 89.0 cm/s Mitral A Point Velocity 92.8 cm/s Mitral E to A Ratio 1.0 MV Deceleration Time 308.5 ms MV E' Velocity 4.5 cm/s Mitral E to MV E' Ratio 19.9 TR Peak Velocity 169.8 cm/s TR Peak Gradient 11.5 mmHg Right Ventricular Systolic Press 16.5 mmHg FINDINGS Left Ventricle Left ventricular ejection fraction is estimated at 55-60 %. Left ventricular cavity size normal. Mild concentric left ventricular hypertrophy. Right Ventricle Moderate right ventricular dilatation. Right ventricular systolic pressure within normal limits. Right Atrium Normal right atrial size. Left Atrium Mildly increased left atrial diameter. Moderately increased left atrial volume. Mildly increased left atrial area. No evidence for an atrial septal defect. Negative saline bubbles study Mitral Valve Structurally normal mitral valve. Aortic Valve Trileaflet aortic valve. No aortic valve stenosis. Trace aortic regurgitation. Tricuspid Valve Structurally normal tricuspid valve. Trace to mild tricuspid regurgitation. Pulmonic Valve Pulmonic valve not well visualized. Pericardium Normal pericardium. No pericardial effusion. Aorta Normal size aortic root and proximal ascending aorta. CONCLUSIONS Normal LV systolic function Moderate left atrial enlargement Moderate right ventricular diameter dictation Previewed by: Dr. Moreno Chanel MD (Electronically Signed) Final Date: 21 Dec 2022 11:48
--- NOTE | 2022-12-21 11:50 | P.CRDCN ---
History of Present Illness History of present illness: HISTORY OF PRESENT ILLNESS: This is a 47-year-old male with a past medical history significant for hypertension, nicotine dependence, daily alcohol use, daily marijuana use, and family history of premature coronary artery disease. Patient does not follow with a teaching pastor. We have been asked to see the patient in consultation for abnormal EKG. Patient examined at the bedside. Patient presented to the hospital with a chief complaint of tingling in his right hand. He states this has been going on for over a week. He states on Tuesday night his hand locked up and he did not have any motor strength in his hand. He presented to the hospital for further evaluation. The patient has been worked up for a CVA and is followed by neurology. The patient reports some numbness of his right hand this morning and states his fine motor skills are still impaired. He denies any chest pain or pressure. He denies any shortness of breath. The patient was found to be diabetic during hospital admission with a hemoglobin A1c of 11.4. The patient has also been hypertensive since arrival to the hospital and remains hypertensive this morning with a systolic in the [id number]. He has been started on Norvasc. Patient was found to have occluded left ICA and 70% right ICA. Vascular surgery has been consulted. * EKG reveals sinus mechanism with Q waves inferiorly. No signs of acute ischemia * Chest xray negative for acute process * Carotid Doppler: Occluded left internal carotid artery. No evidence for high- grade stenosis involving visualized segment of the right carotid artery. * CT: Occluded left internal carotid artery. Right internal carotid artery high-grade stenosis as it enters the petrous portion of at least 70% as well as an additional area of high-grade stenosis involving the cavernous portion of at least 70%. * Laboratory data: WBC 7.2. Hemoglobin 16.2. Platelet count 310. Sodium 139. Potassium 4.0. BUN 12. Creatinine 0.72. Troponin negative 1. * Current home cardiac medications include none REVIEW OF SYSTEMS: At the time of my exam: CONSTITUTIONAL: Denies fever or chills. HEENT: Denies blurred vision, vision changes, or eye pain. Denies hemoptysis CARDIOVASCULAR: Denies chest pain. Denies orthopnea. Denies PND. Denies palpitations RESPIRATORY: Denies shortness of breath. GASTROINTESTINAL: Denies abdominal pain. Denies nausea or vomiting. HEMATOLOGIC: Denies bleeding disorders. GENITOURINARY: Denies any blood in urine. SKIN: Denies pruitis. Denies rash. PHYSICAL EXAM: VITAL SIGNS: Reviewed. GENERAL: Well-developed in no acute distress. HEENT: Head is normocephalic. Pupils are equal, round. Sclerae anicteric. Mucous membranes of the mouth are moist. Neck supple. No JVD or thyromegaly LUNGS: Respirations even and unlabored. Lungs essentially clear to auscultation bilaterally. HEART: Regular rate and rhythm. S1 and S2 heard. ABDOMEN: Soft. Nondistended. Nontender. EXTREMITIES: Normal range of motion. No clubbing or cyanosis. Peripheral pulses intact. No lower extremity edema NEUROLOGIC: Awake and alert. Oriented x 3. ASSESSMENT: Right hand numbness and weakness Suspected acute ischemic CVA, MRI pending Left internal carotid artery occlusion Right ICA stenosis, 70% per CTA, however carotid Doppler does not reveal significant stenosis New diagnosis of diabetes, hemoglobin A1c 11.4 Hypertension, uncontrolled Hyperlipidemia, LDL 141 Nicotine dependence, patient smokes 1.5 packs per day Daily alcohol use of at least 6 beers Daily marijuana use Family history of premature coronary artery disease. Patient's paternal grandfa ther at age 41 of [place] PLAN: Vascular surgery following for ICA occlusion Neurology following. Patient scheduled for MRI today Obtain 2-D echo to assess cardiac structure and function Continue aspirin and Brilinta Increase amlodipine to 10 mg daily for optimal blood pressure control Continue telemetry monitoring No plans for stress testing or cardiac cath at this time. Patient without complaints of chest pain or pressure. Further recommendations pending patient course Nurse practitioner note has been reviewed by physician. Signing provider agrees with the documented findings, assessment, and plan of care. Past Medical History Past Medical History: No Reported History Additional Past Medical History / Comment(s): pt states he has high blood pressure but does not take any medications for it History of Any Multi-Drug Resistant Organisms: None Reported Past Surgical History: No Surgical Hx Reported Additional Past Surgical History / Comment(s): pt states he had sleep apnea surgery Past Anesthesia/Blood Transfusion Reactions: No Reported Reaction Past Psychological History: No Psychological Hx Reported Smoking Status: Current every day smoker Past Alcohol Use History: Daily, Heavy Past Drug Use History: Marijuana - Past Family History Mother Family Medical History: Myocardial Infarction ([place]) Additional Family Medical History / Comment(s): pts maternal gradfather in his 40;s from a heart attack Medications and Allergies Home Medications Medication Instructions Recorded Confirmed Type Omeprazole Magnesium [PriLOSEC OTC] 20 mg PO DAILY 12/19/22 12/19/22 History Allergies Allergy/AdvReac Type Severity Reaction Status Date / Time No Known Allergies Allergy Verified 12/19/22 13:14 Physical Exam Vitals: Vital Signs Temp Pulse Resp BP Pulse Ox 12/21/22 07:48 97 12/21/22 03:41 97.7 F 54 L 14 172/86 99 12/20/22 23:54 97.5 F L 75 14 193/84 99 12/20/22 20:00 97.9 F 58 L 16 200/96 93 L 12/20/22 16:00 98.6 F 69 18 184/93 98 12/20/22 12:00 98.2 F 70 20 201/109 98 12/20/22 08:00 98.2 F 75 14 175/98 97 Intake and Output 12/20/22 12/21/22 12/21/22 22:59 06:59 14:59 Intake Total 540 Balance 540 Intake: Oral 540 Other: Voiding Method Toilet Toilet # Voids 1 1 Results 12/19/22 10:27 12/21/22 07:56 Lipids 12/19/22 Range/Units 14:05 Triglycerides 109.00 (0.00-149.00) mg/dL Cholesterol 206.00 H (0.00-200.00) mg/dL HDL Cholesterol 43.20 (40.00-60.00) mg/dL Cholesterol/HDL Ratio 4.77 Ratio Current Medications Generic Name Dose Route Start Last Admin Trade Name Freq PRN Reason Stop Dose Admin Amlodipine Besylate 5 mg 12/21/22 09:00 Amlodipine 5 Mg Tab PO DAILY GIRMA Aspirin 81 mg 12/20/22 09:00 12/20/22 08:20 Aspirin 81 Mg PO 81 mg DAILY GIRMA Administration Atorvastatin Calcium 80 mg 12/20/22 21:00 12/20/22 20:09 Atorvastatin 80 Mg Tab PO 80 mg HS GIRMA Administration Dextrose/Water 25 ml 12/19/22 15:15 Dextrose 50% Syringe 50 Ml IVP PER PROTOCOL PRN Hypoglycemia Protocol Dextrose/Water 50 ml 12/19/22 15:15 Dextrose 50% Syringe 50 Ml IVP PER PROTOCOL PRN Hypoglycemia Protocol Famotidine 20 mg 12/20/22 21:00 12/20/22 20:09 Famotidine 20 Mg/2 Ml Vial IV 20 mg Q12HR GIRMA Administration Heparin Sodium (Porcine) 5,000 unit 12/19/22 16:00 12/20/22 23:55 Heparin Sodium,Porcine/Pf 5,000 Unit/0.5 Ml Syringe SQ 5,000 unit Q8HR GIRMA Administration Sodium Chloride 1,000 mls @ 20 mls/hr 12/19/22 12:45 12/20/22 14:00 Saline 0.9% IV Not Given .Q24H GIRMA Insulin Aspart 0 unit 12/19/22 17:30 12/21/22 06:28 Insulin Aspart (Novolog) 100 Unit/Ml Vial SQ 2 unit ACHS GIRMA Administration Protocol Metformin HCl 500 mg 12/20/22 18:00 12/21/22 06:26 Metformin 500 Mg Tab PO Not Given BID-W/MEALS GIRMA Naloxone HCl 0.2 mg 12/19/22 12:31 Naloxone 0.4 Mg/Ml 1 Ml Vial IV Q2M PRN Opioid Reversal Thiamine HCl 100 mg 12/19/22 14:45 12/20/22 08:20 Thiamine 100 Mg Tab PO 100 mg DAILY GIRMA Administration Ticagrelor 90 mg 12/19/22 21:00 12/20/22 20:09 Ticagrelor 90 Mg Tab PO 90 mg BID GIRMA Administration Intake and Output 12/20/22 12/21/22 12/21/22 22:59 06:59 14:59 Intake Total 540 Balance 540 Intake: Oral 540 Other: Voiding Method Toilet Toilet # Voids 1 1 12/19/22 10:27 12/19/22 10:27
[2022-12-21 12:41] VITALS: BMI 30.4
--- NOTE | 2022-12-21 14:03 | MR ---
EXAMINATION TYPE: MR angio head wo/neck wo/w con DATE OF EXAM: 12/21/2022 1:24 PM CLINICAL INDICATION:Male, 47 years old with history of stroke; Right hand weakness. COMPARISON: 12/19/2022. Technical: MRA brain: 3-D [id number] Axial with MIP and 3-D reconstruction. Performed on a separate workstat ion. MRA neck: Multiplanar, multi-sequence imaging as well as 2D and 3-D phase was performed extracranial vasculature of the neck. 3-D reformatted images and maximum intensity projection reformatted images were submitted for evaluat ion, these are performed on a separate workstation. IV Contrast: 9 cc Gadavist Findings: Vertebral arteries: The vertebral arteries are patent. The codominant vertebral arteries. Basilar artery: The basilar artery is intact. The basilar artery bifurcation is normal. Internal Carotid arteries: Occluded left internal carotid artery intracranial portion with visualizat ion of flow within the A1 and M1 segments. The right internal carotid arteries patent no evidence of aneurysmal dilation. The cervical, petrous, cavernous and supraclinoid segments are normal. JAN: Patent with no evidence of aneurysm. ACOM: Present without evidence of aneurysm. MCA: Patent with no evidence of aneurysm. C[place] STATION: Patent with no evidence of aneurysm. PCOM: Hypoplastic bilaterally. RIGHT CAROTID SYSTEM: The common carotid artery and external carotid artery are patent. The carotid b ifurcation demonstrates no evidence of hemodynamically significant stenosis. The remaining portions o f the internal carotid artery demonstrate high-grade stenosis in the most cephalad cervical portion a s it enters the petrous portion with at least 70% stenosis as well as another area as it enters the c avernous portion of at least 70%. LEFT CAROTID SYSTEM: Common carotid artery is patent. There is occlusion of the internal carotid art judy just past its origin and extends into the intracranial portion with reconstitution at the level o f the cavernous sinus. The cavernous portion also demonstrates short segment of high-grade stenosis o f at least 70% The origins of the great vessels and vertebral arteries appear unremarkable. Vertebral arteries are c odominant. IMPRESSION: Findings the same as CT 12/19/2022. 1. Occluded left internal carotid artery extending just past its origin to the cavernous portion wit h reconstitution. 2. Right internal carotid artery high-grade stenosis as it enters the petrous portion of at least 70 % as well as an additional area of high-grade stenosis involving the cavernous portion of at least 70 %. These are better appreciated on CT imaging. 3. The remainder of the vessels demonstrate no evidence for aneurysmal dilation or high-grade stenos is. 4. No evidence of intracranial aneurysm
--- NOTE | 2022-12-21 14:04 | MR ---
EXAMINATION TYPE: MR brain wo con DATE OF EXAM: 12/21/2022 1:24 PM COMPARISON: 12/19/2022 CT CLINICAL INDICATION:Male, 47 years old with history of right hand weakness. Stroke; Right hand weakne ss. TECHNIQUE: Multi planar, multi sequence imaging was performed through the brain including: T1, T2, In version recovery, Diffusion weighted imaging, and gradient echo imaging. No gadolinium was given. FINDINGS: Scattered foci of restricted diffusion are present predominantly within the left cerebrum i n the area of the watershed region of the JAN and MCA territory. Corresponding high FLAIR and T2 sign al is present in these foci. No evidence of hemorrhagic conversion. The ventricular system, and cisterns appear unremarkable. The susceptibility weighted images do not r eveal any evidence for micro-hemorrhage. Loss of flow void within the left internal carotid artery as seen on prior CT. The bone marrow signal is within normal limits. Paranasal sinuses and mastoid air cells: No significant paranasal sinus disease. Visualized orbits: Orbital contents are intact. IMPRESSION: 1. Multiple foci of restricted diffusion in the watershed region of the left MCA and JAN territory. 2. Left internal carotid artery occlusion as seen on CT and described on CT. 3.
[2022-12-21 16:22] LABS: Glucose,Whole Blood 223 mg/dL (70-110)
[2022-12-21] MEDS: SODIUM CHLORIDE 0.9% 1,000 ML IV SCH (16:39)
[2022-12-21] MEDS: ATORVASTATIN 80 MG TAB PO SCH (20:10)
[2022-12-21 20:12] LABS: Glucose,Whole Blood 134 mg/dL (70-110)
--- NOTE | 2022-12-21 21:17 | P.PN ---
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 Patient states that initially his symptoms started about a week ago with some very mild paresthesias. Went to see a chiropractor. This suspected as a pinched nerve. Patient started having symptoms since Tuesday morning and worse compared to initial presentation. Patient states that he is also having off equilibrium. Denies any complaints of neck stiffness. No headache. No fever no chills. Denies any cough or sputum production. Patient does smoke on daily basis and also drinks heavily. Occasional marijuana use. Patient has not follow-up with primary care physician recently. CT angiogram showed occluded left internal carotid artery extending just past 2001 the cavernous portion with reconstitution. Right ICA high-grade stenosis Chest x-ray showed no acute cardiopulmonary process. EKG showed incomplete right bundle branch block, inferior KS of indeterminate age. Laboratory data showed WBC 7.2 hemoglobin 16.2 and platelets 312 Sodium 136 potassium 3.8 chloride 102 bicarb is 23 blood sugar is 281. Liver enzymes are not elevated, troponin x1 negative and TSH 0.536 and UDS is positive for marijuana 12/20/2022 Patient still complaining of from right hand weakness and the lesser degree numbness. Patient states it is the same since admission with no improvement or worsening. Also he denies any new complaint for me. He is sitting in chair looks comfortable. His parents at bedside. Blood pressure is still on the high side, 184/93, permissive hypertension as recommended by neurologist. Therefore we will start Norvasc 5 mg tomorrow for better blood pressure control area Now his MRI/A of the brain is pending as well as echocardiogram. Hyper coagulable workup ordered by neurologist is pending. Homocysteine is with her the reference range. Antithrombin III test is counseled. Other test is still pending. Patient denies any neck complaint, he was told about his blockages in his internal carotid artery, vascular surgery consult is pending. He remains on aspirin and Brillinta , risks benefits are explained for him in detail including but not limited to risk of bleeding and he verbalized understanding and acceptance EKG showing abnormal right bundle branch block and Q waves in the inferior leads, cardiology consult is recommended by neurologist which is ordered as well. 12/21/2022 Patient clinically is same with right hand weakness with minimal numbness. No new deficit, no new complaint Blood pressure slightly elevated and Norvasc increased to 10 mg daily today MRI of the brain: Scattered foci of restricted diffusion predominantly in the left cerebral in the area of JAN and MCA territory, no evidence of hemorrhagic conversion MRA of the brain and neck: Occluded left internal carotid artery, right internal carotid stenosis at least 70%. No evidence of aneurysmal dilatation or high-grade stenosis, no intracranial aneurysm echocardiogram: Ejection fraction 55-60% moderate RV dilatation Vascular surgery team evaluated the patient and recommended no surgical intervention Cardiology input is appreciated Patient informed he has diabetes mellitus and starting metformin, glucometers provided for him and he requires close outpatient monitoring patient informed and he is agreeable. Objective - Vital Signs Vital signs: Vital Signs Temp 97.7 F 12/21/22 11:20 Pulse 65 12/21/22 11:20 Resp 16 12/21/22 11:20 BP 175/94 12/21/22 11:20 Pulse Ox 100 12/21/22 11:20 FiO2 Intake & Output 12/20/22 12/21/22 12/21/22 18:59 06:59 18:59 Intake Total 1280 240 Balance 1280 240 Weight 90.718 kg Intake: Oral 1280 240 Other: Voiding Method Toilet Toilet # Voids 2 1 - Exam GENERAL: The patient is alert and oriented x3, not in any acute distress. Well developed, well nourished. HEENT: Pupils are round and equally reacting to light. EOMI. No scleral icterus. No conjunctival pallor. Normocephalic, atraumatic. No pharyngeal erythema. No thyromegaly. CARDIOVASCULAR: S1 and S2 present. No murmurs, rubs, or gallops. PULMONARY: Chest is clear to auscultation, no wheezing . no crackles. ABDOMEN: Soft, nontender, nondistended, normoactive bowel sounds. No palpable organomegaly. MUSCULOSKELETAL: No joint swelling or deformity. EXTREMITIES: No cyanosis, clubbing, or pedal edema. -NEUROLOGICAL: Gross neurological examination did not reveal any focal deficits. Right hand weakness compared to the left hand about 4/5. Risks of exam motor 5/5, sensation intact. SKIN: No rashes. no petechiae. - Labs CBC & Chem 7: 12/19/22 10:27 12/21/22 07:56 Labs: Abnormal Lab Results - Last 24 Hours (Table) 12/20/22 12/20/22 12/21/22 Range/Units 16:23 19:52 05:56 Glucose (74-99) mg/dL POC Glucose (mg/dL) 195 H 232 H 204 H (70-110) mg/dL 12/21/22 12/21/22 Range/Units 07:56 11:30 Glucose 208 H (74-99) mg/dL POC Glucose (mg/dL) 228 H (70-110) mg/dL Assessment and Plan Assessment: Acute stroke is suspected with acute right hand weakness and numbness. MRI of the brain: Scattered foci of restricted diffusion predominantly in the left cerebral in the area of JAN and MCA territory, hypertension, uncontrolled on admission Send diabetes mellitus Occluded left internal carotid artery and the result right internal carotid artery stenosis at 70% Right bundle-branch block with Q waves in the inferior limits Plan: Continue with aspirin and Brillinta Neurology consult is noted Vascular surgery and cardiology consult is ordered as well. Continue with Lipitor Start Norvasc and monitor blood pressure Because patient won't contrast going to switch his metformin, Amaryl [address] [facility]. Discussed the case with complex case manager to provide glucometer for him. Patient made aware he has diabetes and need close outpatient follow-up. We recommend patient, his health insurance provider to find new bite PCP, he was informed and he is agreeable Labs and medication were reviewed.. Continue same treatment. Continue with symptomatic treatment. Resume home medication. Monitor labs and vitals. DVT and GI prophylaxis. Further recommendations as per clinical course of the patient DVT prophylaxis: Subcutaneous heparin GI Prophylaxis: Pepcid PT/OT: Home healthcare ordered Prognosis is guarded
[2022-12-21] MEDS: GLIMEPIRIDE 1 MG TAB PO SCH (22:49)
[2022-12-22 06:02] LABS: Glucose,Whole Blood 201 mg/dL (70-110)
[2022-12-22] MEDS: INSULIN ASPART (NovoLOG) 100 UNIT/ML VIAL SQ SCH ×2 (06:08→12:00)
[2022-12-22] MEDS: GLIMEPIRIDE 1 MG TAB PO SCH (06:08)
[2022-12-22 08:29] VITALS: PULSE 96; RESP 17
[2022-12-22] MEDS ORDERED: DAPAGLIFLOZIN PROPANEDIOL 5 MG TABLET PO SCH (09:00)
[2022-12-22] MEDS: amLODIPine 10 MG TAB PO SCH (10:00)
[2022-12-22] MEDS: ASPIRIN 81 MG PO SCH (10:00)
[2022-12-22] MEDS: THIAMINE 100 MG TAB PO SCH (10:01)
[2022-12-22] MEDS: FAMOTIDINE 20 MG/2 ML VIAL IV SCH (10:01)
[2022-12-22] MEDS: TICAGRELOR 90 MG TAB PO SCH (10:01)
[2022-12-22 10:05] LABS: Prothrombin 20210A Mutation Negative
[2022-12-22] MEDS: HEPARIN SODIUM,PORCINE/PF 5,000 UNIT/0.5 ML SYRINGE SQ SCH (10:05)
--- NOTE | 2022-12-22 10:24 | P.PN ---
Subjective Progress Note Date: 12/21/22 12/21/2022: Patient was seen for a follow-up. Patient states that he is slightly better. Right hand is slightly stronger. Denies any new neurological symptoms. Denies headache. 12/20/2022: Patient was initially seen by Dr. Benoit Simpson, please refer to his note for details. Patient is a 47-year-old right-handed male, with multiple vascular risk factors including hypertension, uncontrolled diabetes, tobacco and alcohol use, started having right hand weakness late Tuesday night, early Tuesday morning. He stayed home on Tuesday and came to the hospital yesterday on Tuesday. Patient also has significant risk factors and was not taking care of himself. Patient has left ICA occlusion of the supraclinoid and right ICA stenosis and cavernous per CTA. No intervention recommended by neuro intervention. Patient was on aspirin and Plavix, now switched to aspirin and Brilinta by Dr. Simpson.Patient denies any slurred speech, problem with the facial region, visual disturbance, or problem with balance or leg weakness. Patient had undergone neck manipulation by chiropractor last Tuesday on 12/14/2022. Patient denies any headaches or any neurological symptoms immediately after the adjustment. No headache at this time. Patient states that he has smoked 1-1/2 pack per day for 20 years, also drinks 5-6 beers per day. 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 Some of the workup during his hospital visit consisted of: Initial blood pressure is 169/96 and his systolic blood pressure has been in the 140s-160's. CBC with differential is unremarkable Stroke code was activated by the ED team Chemistry panel sodium is 136, glucose is 281 otherwise rest of the chemistry panel is unremarkable EKG is reported as incomplete right bundle branch block. Inferior myocardial infarction of indeterminate age and abnormal EKG. CT angiography of the head and neck is reported as occluded left internal carotid artery extending just past its origin to the cavernous portion with reconstitution. There is a right internal carotid artery high-grade as it enters the petrous portion at least 70% as well as additional area of high-grade stenosis involving the cavernous portion of at least 70%. Remainder of the vessel demonstrate no evidence for aneurysm dilation or high-grade stenosis. ED team spoke with the stroke attending (Dr. Trent) and no IV TPA since the patient's last normal state is more than 4-1/2 hours ago (>24 hours ago). Regarding his abnormal left ICA occlusion and significant right ICA stenosis at the cavernous portion, no intervention and was told by Dr. Trent that pain MRI the brain, start the patient on aspirin, Brilinta and Lipitor according to ED physician. Of note, ED noted that patient has left MCA occlusion that he was notified by [place] radiologist but ED physician notified me that he mistyped it and suppose to be left ICA. Objective - Vital Signs Vital signs: Vital Signs Temp 97.8 F 12/21/22 15:49 Pulse 72 12/21/22 15:49 Resp 16 12/21/22 15:49 BP 163/100 12/21/22 15:49 Pulse Ox 99 12/21/22 15:49 FiO2 Intake & Output 12/21/22 12/21/22 12/22/22 06:59 18:59 06:59 Intake Total 358 Balance 358 Weight 90.718 kg Intake: Oral 358 Other: Voiding Method Toilet Toilet # Voids 1 - Exam Patient is a middle aged male, in no acute distress. Patient is alert awake oriented to time place and person. Speech is mildly dysarthric and language functions are normal. Patient can name and repeat very well. No aphasia. Attention, concentration and fund of knowledge is adequate. On cranial nerve examination, pupils are equal, round and reacting to light, visual ghosh are full on confrontation, with no neglect on double simultaneous stimulation. Extraocular muscles are intact with no nystagmus. Patient has right facial asymmetry with slight flattening of the right nasolabial fold. His tongue protrudes slightly to the right. Palatal elevation and sensation normal, hearing and shoulder shrug normal, facial sensation normal. On muscle strength testing, there is no pronator drift, although the right hand gets cupping. The strength is (right/left) blower installer 5-/5, Interossei is 3-/5, finger extension 3+/5, biceps 5/5, triceps 5/5, deltoid 5/5. Lower extremity is are normal bilaterally. Patient has significantly decreased right finger tapping as compared to the left. Sensory to touch is equal with no neglect on double simultaneous stimulation. Cerebellar function showed no ataxia for [id number] testing. No dy sdiadochokinesia. No ataxia for egbz-gr-dspn testing on either side. Tone and bulk of muscles normal. Gait deferred.. On general examination, there is no carotid bruit or murmur, S1-S2 audible. C hest is clear on consultation. Abdomen is soft nontender. No organomegaly, bowel sounds present. Peripheral pulses are present. No edema. - Labs CBC & Chem 7: 12/19/22 10:27 12/21/22 07:56 Labs: Abnormal Lab Results - Last 24 Hours (Table) 12/19/22 12/20/22 12/21/22 Range/Units 15:16 19:52 05:56 Glucose (74-99) mg/dL POC Glucose (mg/dL) 232 H 204 H (70-110) mg/dL MATTHEW Screen POSITIVE A (NEGATIVE) 12/21/22 12/21/22 12/21/22 Range/Units 07:56 11:30 16:19 Glucose 208 H (74-99) mg/dL POC Glucose (mg/dL) 228 H 223 H (70-110) mg/dL MATTHEW Screen (NEGATIVE) Assessment and Plan Assessment: This is a 47-year-old gentleman with hypertension, tobacco use, alcohol use, not any medication and does not follow up with physician who had numbness and weakness of the right hand started 12/17/2022. Patient had his neck manipulation by chiropractor on 12/14/2022. No definitive evidence of carotid dissection noticed on CTA. Patient's weakness of the right hand as well as numbness and has not improved. Denies of neck pain or headache. Acute ischemic stroke (right hand weakness and numness). Has occlusion of left ICA extending past origin cavernous portion. Unsure if due to his multiple risk factors (HTN and not on medications, tobacco use, significant alcohol use, not following-up with PCP and with early family history of cardiovascular) vs due to recent neck mannipulation but latter seems low since no dissection on CTA and currently denies any headache or vascular features. Left ICA 70% supraclinoid and occlusion of left ICA extending past origin cavernous portion. Diabetes, poorly controlled Hypertension and no on medication Tobacco use (smoke 1 1/2 packs daily) Alcohol use (drinks 6 can beers daily) Early family history of cardiovascular disease (Grandfather has [place] in late 40's) Plan: According to ED, Dr. Trent (stroke/interventional neurologist) stated no intervention and recommended ASA, Brilinta, Lipitor and MRI. Patient was started on Brilinta 90mg 1 tab bid with loading of 180mg, ASA 81mg daily and was given ASA 324mg once in ED. Gave loading dose of Lipitor 80mg once then 80mg qhs. MRI of the brain revealed multiple foci of restricted diffusion in the watershed region of the left MCA and JAN territory. Left ICA occlusion. I personally reviewed MRI, agree with the findings. MRA of the head and neck revealed occluded left ICA extending just past its origin to the cavernous portion with reconstitution. Right ICA high-grade stenosis as it enters the petrous portion of at least 70% as well as an additional area of high-grade stenosis involving the cavernous portion of at least 70%. These are better appreciated on CT imaging. No aneurysm. I personally reviewed MRA, agree with the findings. Vascular surgery team on board for left ICA occlusion. Patient not a candidate for stenting or CEA. Patient has high-grade stenosis right ICA intracranially. Recommend patient follow-up with Dr. Ferraro neuro intervention as outpatient. Will discuss with Dr. Sen if patient would be a candidate for intervention from his side. Recommend permissive hypertension for 48 hours. Treat the blood pressure if systolic more than 220 or diastolic is more than 110. Every 4 hours neuro checks On cardiac monitoring Consulted PT and OT and [employer] UDS positive for marijuana, alcohol level < 10, TSH 0.536, HbA1c 11.4, consistent with poorly controlled diabetes, lipid panel cholesterol 260, LDL 141 , HDL 43, triglycerides 109. 2-D echo with bubble study revealed normal left-ventricular systolic function with EF 55-60%. Mild concentric LVH, moderate right ventricular dilation, mildly increased left atrial diameter. Moderately increased left atrial volume. Mildly increased left atrial area. No evidence for an atrial septal defect. Negative saline bubble study. Continue thiamine 100 mg daily. Watch out for withdrawal since patient drinks 6 beers daily. Await hypercoagulable workup: MATTHEW positive, ESR 7, factor V Leiden mutation negative, homocysteine 7.55 normal, lupus anticoagulant, prothrombin 71513 negative, von Willebrand. Consider ordering Protein C/S if other work-up does not reveal cause of stroke. Consulted physical therapy, occupational therapy and speech therapy Cardiology on board for abnormal EKG and especially with early family history of cardiac disease. Patient was counseled on tobacco and alcohol cessation. We'll defer the rest of the medical medical the primary team For DVT prophylaxis: Continue subq heparin 5000U every 8 hours.
--- NOTE | 2022-12-22 10:25 | P.PN ---
Subjective Progress Note Date: 12/22/22 Principal diagnosis: Carotid stenosis Patient was seen and examined today as a follow-up. States he is getting a little more strength in his right hand. Occupational therapy saw patient yesterday and is giving him strengthening exercises. He denies any other focal deficits. Yesterday he underwent MRI of the brain that reported multiple foci of restricted diffusion in the watershed region of the left MCA and JAN territory. Left internal carotid artery occlusion seen on CT and described on CT. He also underwent an MRI/MRA of the neck reporting the common carotid artery and external carotid artery are patent. Carotid bifurcation demonstrates no evidence of hemodynamically significant stenosis. The remaining portion of internal carotid artery demonstrates high-grade stenosis in the most cephalad cervical portion as it enters the petrous portion with at least 70% stenosis as well as another area as it enters the cavernous portion of at least 70% stenosis. Left ICA occlusion. No evidence of intracranial aneurysm. Objective - Vital Signs Vital signs: Vital Signs Temp 97.9 F 12/22/22 03:27 Pulse 81 12/22/22 03:27 Resp 16 12/22/22 03:27 BP 172/89 12/22/22 03:27 Pulse Ox 99 12/22/22 03:27 FiO2 Intake & Output 12/21/22 12/22/22 12/22/22 18:59 06:59 18:59 Intake Total 358 Balance 358 Weight 90.718 kg Intake: Oral 358 Other: Voiding Method Toilet Toilet # Voids 2 - Exam General appearance: The patient is alert, oriented, appears in no acute distress. HET: Head is normocephalic and atraumatic. Pupils are equal and reactive. Neck: Supple. Trachea midline. No audible carotid bruit. Heart: Regular. Lungs: Equal expansion, normal respiratory effort. Abdomen: Soft, nontender, nondistended. Extremities: Normal skin color and turgor. No cyanosis, rash, ulceration, clubbing, or edema. Bilateral +2 radial pulses. Neurological: Alert and oriented 3. Right hand grasp 4/5, left 5/5. Good tone bilateral upper and lower extremities. Bilateral lower extremity strength equal . Patient has facial symmetry, tongue protrudes midline, speech is fluent. - Labs CBC & Chem 7: 12/19/22 10:27 12/21/22 07:56 Labs: Abnormal Lab Results - Last 24 Hours (Table) 12/19/22 12/21/22 12/21/22 Range/Units 15:16 07:56 11:30 Glucose 208 H (74-99) mg/dL POC Glucose (mg/dL) 228 H (70-110) mg/dL MATTHEW Screen POSITIVE A (NEGATIVE) 12/21/22 12/21/22 12/22/22 Range/Units 16:19 20:10 05:58 Glucose (74-99) mg/dL POC Glucose (mg/dL) 223 H 134 H 201 H (70-110) mg/dL MTATHEW Screen (NEGATIVE) Assessment and Plan Assessment: 1. Left internal carotid artery occlusion 2. Right carotid bifurcation with no evidence of hemodynamically significant stenosis, with 70% stenosis in the petrous portion and cavernous portion of r ight internal carotid artery 3. Right upper extremity weakness 4. Nicotine dependence 5. Alcohol dependence/abuse Plan: 1. Continue medical management with atorvastatin, aspirin, and Brilinta as ordered 2. Tobacco cessation 3. Alcohol abstinence 4. PT/OT 5. No indication for any vascular surgical intervention for left ICA occlusion. Recommend outpatient follow-up neuro-interventionalists for right internal carotid artery stenosis at petrous and cavernous portion Thank you for this consultation, the patient is clear from vascular surgery for discharge once otherwise medically stable. May follow-up as needed. The impression and plan of care has been dictated as directed. Dr. Botello I performed a history and examination of this patient, discussed the same with the dictator. I agree with the dictator's note ,documented as a scribe. Any additional findings or plans will be noted.
--- NOTE | 2022-12-22 10:59 | P.PN ---
Subjective Progress Note Date: 12/22/22 HISTORY OF PRESENT ILLNESS: This is a 47-year-old male with a past medical history significant for hypertension, nicotine dependence, daily alcohol use, daily marijuana use, and family history of premature coronary artery disease. 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 We have been asked to see the patient in consultation for abnormal EKG. Patient examined at the bedside. Patient presented to the hospital with a chief complaint of tingling in his right hand. He states this has been going on for over a week. He states on Tuesday night his hand locked up and he did not have any motor strength in his hand. He presented to the hospital for further evaluation. The patient has been worked up for a CVA and is followed by neurology. The patient reports some numbness of his right hand this morning and states his fine motor skills are still impaired. He denies any chest pain or pressure. He denies any shortness of breath. The patient was found to be diabetic during hospital admission with a hemoglobin A1c of 11.4. The patient has also been hypertensive since arrival to the hospital and remains hypertensive this morning with a systolic in the [id number]. He has been started on Norvasc. Patient was found to have occluded left ICA and 70% right ICA. Vascular surgery has been consulted. * EKG reveals sinus mechanism with Q waves inferiorly. No signs of acute ischemia * Chest xray negative for acute process * Carotid Doppler: Occluded left internal carotid artery. No evidence for high- grade stenosis involving visualized segment of the right carotid artery. * CT: Occluded left internal carotid artery. Right internal carotid artery high-grade stenosis as it enters the petrous portion of at least 70% as well as an additional area of high-grade stenosis involving the cavernous portion of at least 70%. * Laboratory data: WBC 7.2. Hemoglobin 16.2. Platelet count 310. Sodium 139. Potassium 4.0. BUN 12. Creatinine 0.72. Troponin negative 1. * Current home cardiac medications include none 12/22/2022 Patient examined this morning at the bedside. Patient denies chest pain or pressure. He denies shortness of breath. He reports improvement in his motor strength of his right hand. Patient's blood pressure has improved with a recent reading of 143/86. MRA of the brain reveals occluded left internal carotid artery extending just past his origin to the cavernous portion up with reconstitution. Right internal carotid artery high-grade stenosis as it enters the petrous portion of at least 70% as well as an additional area of high-grade stenosis involving the cavernous portion of at least 70%. No evidence of intracranial aneurysm. MRI of the brain reveals multiple foci of restricted diffusion in the watershed region of the left MCA and JAN territory. Echocardiogram completed revealing ejection fraction 55-60%. PHYSICAL EXAM: VITAL SIGNS: Reviewed. GENERAL: Well-developed in no acute distress. HEENT: Head is normocephalic. Pupils are equal, round. Sclerae anicteric. Mucous membranes of the mouth are moist. Neck supple. No JVD or thyromegaly LUNGS: Respirations even and unlabored. Lungs essentially clear to auscultation bilaterally. HEART: Regular rate and rhythm. S1 and S2 heard. ABDOMEN: Soft. Nondistended. Nontender. EXTREMITIES: Normal range of motion. No clubbing or cyanosis. Peripheral pulses intact. No lower extremity edema NEUROLOGIC: Awake and alert. Oriented x 3. ASSESSMENT: Right hand numbness and weakness Suspected acute ischemic CVA Left internal carotid artery occlusion Right ICA stenosis, 70% involving the petrous and cavernous portion New diagnosis of diabetes, hemoglobin A1c 11.4 Hypertension, uncontrolled on admission, improving Hyperlipidemia, LDL 141 Nicotine dependence, patient smokes 1.5 packs per day Daily alcohol use of at least 6 beers Daily marijuana use Family history of premature coronary artery disease. Patient's paternal grandfather at age 41 of [place] PLAN: Continue current cardiac medications No plans for stress testing or cardiac cath at this time. Patient without complaints of chest pain or pressure. Patient is stable for discharge home today from a cardiac standpoint Further recommendations pending patient course Nurse practitioner note has been reviewed by physician. Signing provider agrees with the documented findings, assessment, and plan of care. Objective - Vital Signs Vital signs: Vital Signs Temp 98.5 F 12/22/22 08:15 Pulse 96 12/22/22 08:15 Resp 17 12/22/22 08:15 BP 143/86 12/22/22 08:15 Pulse Ox 98 12/22/22 08:15 FiO2 Intake & Output 12/21/22 12/22/22 12/22/22 18:59 06:59 18:59 Intake Total 358 Balance 358 Weight 90.718 kg Intake: Oral 358 Other: Voiding Method Toilet Toilet # Voids 2 - Labs CBC & Chem 7: 12/19/22 10:27 12/21/22 07:56 Labs: Abnormal Lab Results - Last 24 Hours (Table) 12/19/22 12/21/22 12/21/22 Range/Units 15:16 11:30 16:19 POC Glucose (mg/dL) 228 H 223 H (70-110) mg/dL MATTHEW Screen POSITIVE A (NEGATIVE) 12/21/22 12/22/22 Range/Units 20:10 05:58 POC Glucose (mg/dL) 134 H 201 H (70-110) mg/dL MATTHEW Screen (NEGATIVE)
[2022-12-22 11:39] LABS: Glucose,Whole Blood 137 mg/dL (70-110)
[2022-12-22 11:56] VITALS: BP 145/87; TEMP 98.4
[2022-12-22 12:41] LABS: APTT 35 Sec(s) (<43); Dilute Russell Viper Venom 33 Sec(s) (<44)
[2022-12-22 12:42] LABS: Anti-Thrombin III Antigen 96 % (80 - 120)
--- NOTE | 2022-12-22 14:52 | P.PN ---
Subjective Progress Note Date: 12/22/22 12/22/2022: Patient was seen for a follow-up. Patient's was also present today. Patient states his right hand is getting better. Denies any new focal symptoms. Denies headache. 12/21/2022: Patient was seen for a follow-up. Patient states that he is slightly better. Right hand is slightly stronger. Denies any new neurological symptoms. Denies headache. 12/20/2022: Patient was initially seen by Dr. Benoit Simpson, please refer to his note for details. Patient is a 47-year-old right-handed male, with multiple vascular risk factors including hypertension, uncontrolled diabetes, tobacco and alcohol use, started having right hand weakness late Tuesday night, early Tuesday morning. He stayed home on Tuesday and came to the hospital yesterday on Tuesday. Patient also has significant risk factors and was not taking care of himself. Patient has left ICA occlusion of the supraclinoid and right ICA stenosis and cavernous per CTA. No intervention recommended by neuro intervention. Patient was on aspirin and Plavix, now switched to aspirin and Brilinta by Dr. Simpson.Patient denies any slurred speech, problem with the facial region, visual disturbance, or problem with balance or leg weakness. Patient had undergone neck manipulation by chiropractor last Tuesday on 12/14/2022. Patient denies any headaches or any neurological symptoms immediately after the adjustment. No headache at this time. Patient states that he has smoked 1-1/2 pack per day for 20 years, also drinks 5-6 beers per day. 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 Some of the workup during his hospital visit consisted of: Initial blood pressure is 169/96 and his systolic blood pressure has been in the 140s-160's. CBC with differential is unremarkable Stroke code was activated by the ED team Chemistry panel sodium is 136, glucose is 281 otherwise rest of the chemistry panel is unremarkable EKG is reported as incomplete right bundle branch block. Inferior myocardial infarction of indeterminate age and abnormal EKG. CT angiography of the head and neck is reported as occluded left internal carotid artery extending just past its origin to the cavernous portion with reconstitution. There is a right internal carotid artery high-grade as it enters the petrous portion at least 70% as well as additional area of high-grade stenosis involving the cavernous portion of at least 70%. Remainder of the vessel demonstrate no evidence for aneurysm dilation or high-grade stenosis. ED team spoke with the stroke attending (Dr. Trent) and no IV TPA since the patient's last normal state is more than 4-1/2 hours ago (>24 hours ago). Regarding his abnormal left ICA occlusion and significant right ICA stenosis at the cavernous portion, no intervention and was told by Dr. Trent that pain MRI the brain, start the patient on aspirin, Brilinta and Lipitor according to ED physician. Of note, ED noted that patient has left MCA occlusion that he was notified by [place] radiologist but ED physician notified me that he mistyped it and suppose to be left ICA. Objective - Vital Signs Vital signs: Vital Signs Temp 98.4 F 12/22/22 11:55 Pulse 96 12/22/22 11:55 Resp 17 12/22/22 11:55 BP 145/87 12/22/22 11:55 Pulse Ox 99 12/22/22 11:55 FiO2 Intake & Output 12/21/22 12/22/22 12/22/22 18:59 06:59 18:59 Intake Total 358 Balance 358 Weight 90.718 kg Intake: Oral 358 Other: Voiding Method Toilet Toilet Toilet # Voids 2 - Exam Patient is a middle aged male, in no acute distress. Patient is alert awake oriented to time place and person. Speech is mildly dysarthric and language functions are normal. Patient can name and repeat very well. No aphasia. Attention, concentration and fund of knowledge is adequate. On cranial nerve examination, pupils are equal, round and reacting to light, visual ghosh are full on confrontation, with no neglect on double simultaneous stimulation. Extraocular muscles are intact with no nystagmus. Patient has right facial asymmetry with slight flattening of the right nasolabial fold. His tongue protrudes slightly to the right. Palatal elevation and sensation normal, hearing and shoulder shrug normal, facial sensation normal. On muscle strength testing, there is no pronator drift, although the right hand gets cupping. The strength is (right/left) catering manager 5-/5, Interossei is 3-/5, finger extension 3+/5, biceps 5/5, triceps 5/5, deltoid 5/5. Lower extremity is are normal bilaterally. Patient has significantly decreased right finger tapping as compared to the left, although better than yesterday. Sensory to touch is equal with no neglect on double simultaneous stimulation. Cerebellar function showed no ataxia for [id number] testing. No dysdiadochokinesia. No ataxia for [id number]-ft-tuby testing on either side. Tone and bulk of muscles normal. Gait deferred.. On general examination, there is no carotid bruit or murmur, S1-S2 audible. Chest is clear on consultation. Abdomen is soft nontender. No organomegaly, bowel sounds present. Peripheral pulses are present. No edema. - Labs CBC & Chem 7: 12/19/22 10:27 12/21/22 07:56 Labs: Abnormal Lab Results - Last 24 Hours (Table) 12/19/22 12/21/22 12/21/22 Range/Units 15:16 16:19 20:10 POC Glucose (mg/dL) 223 H 134 H (70-110) mg/dL MATTHEW Screen POSITIVE A (NEGATIVE) 12/22/22 12/22/22 Range/Units 05:58 11:37 POC Glucose (mg/dL) 201 H 137 H (70-110) mg/dL MATTHEW Screen (NEGATIVE) Assessment and Plan Assessment: This is a 47-year-old gentleman with hypertension, tobacco use, alcohol use, not any medication and does not follow up with physician who had numbness and weakness of the right hand started 12/17/2022. Patient had his neck manipulation by chiropractor on 12/14/2022. No definitive evidence of carotid dissection noticed on CTA. Patient's weakness of the right hand as well as numbness and has not improved. Denies of neck pain or headache. Acute ischemic stroke (right hand weakness and numness). Has occlusion of left ICA extending past origin up to the cavernous portion. Probably due to multiple risk factors (HTN and not on medications, tobacco use, significant alcohol use, not following-up with PCP and with early family history of cardiovascular) vs due to recent neck mannipulation but latter seems low since no dissection on CTA and currently denies any headache or vascular features. Left ICA 70% supraclinoid and occlusion of left ICA extending past origin cavernous portion. New onset Diabetes, poorly controlled Hypertension and no on medication Tobacco use (smoke 1 1/2 packs daily) Alcohol use (drinks 6 can beers daily) Early family history of cardiovascular disease (Grandfather has [place] in late 40's) Plan: According to ED, Dr. Trent (stroke/interventional neurologist) stated no intervention and recommended ASA, Brilinta, Lipitor and MRI. Patient was started on Brilinta 90mg 1 tab bid with loading of 180mg, ASA 81mg daily and was given ASA 324mg once in ED. Gave loading dose of Lipitor 80mg once then 80mg qhs. MRI of the brain revealed multiple foci of restricted diffusion in the watershed region of the left MCA and JAN territory. Left ICA occlusion. I personally reviewed MRI, agree with the findings. MRA of the head and neck revealed occluded left ICA extending just past its origin to the cavernous portion with reconstitution. Right ICA high-grade stenosis as it enters the petrous portion of at least 70% as well as an additional area of high-grade stenosis involving the cavernous portion of at l east 70%. These are better appreciated on CT imaging. No aneurysm. I personally reviewed MRA, agree with the findings. I spoke to Dr. Johnson for a second opinion, who did not see any flap, no evidence of dissection of the left ICA. Patient has stenosis of the right ICA as well. CNP vasculitis needs to be ruled out. Patient may benefit from cerebral angiogram. Vascular surgery team on board for left ICA occlusion. Patient not a candidate for stenting or CEA. Patient has high-grade stenosis right ICA intracranially. Recommend patient follow-up with Dr. Ferraro neuro intervention as outpatient. Dr. Whitman does not stent intracranial carotids. I spoke to Dr. Trent, reviewed the results of MRI of the brain, MRA of head and neck. He believes patient has severe vasculopathy from multiple uncontrolled vascular risk factors. He recommended continue dual antiplatelet medications, high-dose statins and have him follow-up in his office in 2-4 weeks. I discussed with patient and his , and informed to make an appointment with Dr. Trent as soon as possible. Patient may need cerebral angiogram. Optimize control of blood pressure, to target between 130 to 160 systolic. Avoid hypotension. On cardiac monitoring. Telemetry monitoring showing sinus rhythm with sinus tachycardia with activity. No other arrhythmia. Consulted PT and OT and SKEIN WINDING OPERATOR UDS positive for marijuana, alcohol level < 10, TSH 0.536, HbA1c 11.4, co nsistent with poorly controlled diabetes, lipid panel cholesterol 260, LDL 141, HDL 43, triglycerides 109. 2-D echo with bubble study revealed normal left-ventricular systolic function with EF 55-60%. Mild concentric LVH, moderate right ventricular dilation, m ildly increased left atrial diameter. Moderately increased left atrial volume. Mildly increased left atrial area. No evidence for an atrial septal defect. Negative saline bubble study. Continue thiamine 100 mg daily. Await hypercoagulable workup: MATTHEW positive, ESR 7, factor V Leiden mutation negative, homocysteine 7.55 normal, lupus anticoagulant, prothrombin 40228 negative, von Willebrand. Protein C/S if other work-up does not reveal cause of stroke. Consulted physical therapy, occupational therapy and speech therapy Cardiology on board for abnormal EKG and especially with early family history of premature cardiac disease. Patient was counseled on tobacco and alcohol cessation.
[2022-12-22 15:04] LABS: ANA Pattern Speckled
--- NOTE | 2022-12-22 23:07 | P.DS ---
Providers Date of admission: 12/19/22 12:31 Attending physician: Shana Mason MD Consults: 12/19/22 11:38 Consult Physician Routine Consulting Provider: Benoit Simpson Consult Reason/Comments: cva Do you want consulting provider notified?: Yes 12/19/22 13:53 Consult Physician Urgent Consulting Provider: Kim Botello Consult Reason/Comments: significant carotid stenosis Do you want consulting provider notified?: Yes 12/20/22 12:44 Consult Physician Routine Consulting Provider: Roderick Armenta Consult Reason/Comments: abnormal ekg Do you want consulting provider notified?: Yes Primary care physician: Da Duran Hospital Course: Diagnoses: Acute stroke is suspected with acute right hand weakness and numbness. 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 Patient's liver looked at by neurologist for acute stroke, he was started on dual antiplatelet therapy with aspirin 81 mg and brilinta , risk and benefits explained for the patient in details including the risk of bleeding and he verbalized understanding and acceptance. Also Lipitor. MRI of the brain: Scattered foci of restricted diffusion predominantly in the left cerebral in the area of JAN and MCA territory, no evidence of hemorrhagic conversion MRA of the brain and neck: Occluded left internal carotid artery, right internal carotid stenosis at least 70%. No evidence of aneurysmal dilatation or high-grade stenosis, no intracranial aneurysm echocardiogram: Ejection fraction 55-60% moderate RV dilatation Vascular surgery team evaluated the patient and recommended no surgical intervention after her for discharge and follow-up as an outpatient with Dr. Mckeon Cardiology team evaluated the patient for right bundle-branch block and the recommended no further workup and cleared her for discharge. Patient also was found to have new onset diabetes with hemoglobin A1c elevated at 11.4%, he informed and he agreeable with the plan, he is started on Amaryl and farxiga ( metformin although his first-line therapy it was avoided at this level because patient got contrast for example during his CTA testing) however patient was instructed to follow up with ash handler Dr. macdonald as an outpatient and he is agreeable., Turgor is provided for him by telehealth case manager and extensive instruction a provided for him regarding check and sugar and monitoring for hypoglycemia and recommendation and he verbalized understanding and acceptance. Today patient was awake alert, he told me his right indoor landscape architect is improving and wea kness in his right hand is improving, I tested his right hand indoor landscape architect by myself and it looks much better compared to admission. Also reports improvement in his numbness in his right arm. She denies any other neurological deficit and he denies headache. No other new symptoms. Gait is normal. Patient was eager to go home from yesterday and he is agreeable to go home today. The rest medication and follow-up outpatient. After rounding I discussed the case with Dr. Grissom the neurologist twice and in both cases he confirmed to me patient can be discharged but he needs close follow-up as an outpatient with the neurologist as well as with a neuro- retail sales teammate for possible evaluation for stenting for his intracranial vessel, Dr. Grissom suggested Dr. Trent in 2 weeks, I showed this recommen dation and the name of the physician to the patient and he is agreeable to call and make appointment, I talked to the staff and they tried to make appointment for him but they couldn't get one therefore it was discussed and deferred to the patient and he is agreeable. Also patient was instructed to follow up with Dr. Peterson neurologist in 1-2 weeks and he is agreeable to call and make appointment Patient was cleared for discharge by all consultants including neurologist Dr. Grissom (as above) engraver hand soft metals, vascular surgery team Problems and management plan were discussed with the patient and he verbalized understanding and acceptance Patient was found stable and can be discharged home in guarded prognosis however he needs follow-up as an outpatient. Patient was instructed to follow up with P WARNER Duran within one week and patient agrees and patient agrees with the appointments made for him on 12/27/22 and states he will follow-up Patient also instructed to follow up with Dr. Peterson and Dr. Trent in 1-2 weeks and patient is agreeable to call and make his appointments (as above) Patient also instructed to follow up with his vascular surgeon Dr. Mckeon and he agrees with appointment made for him on 01/11/23 Patient also instructed to follow up with engraver hand soft metals Dr. Sen in [address] macdonald in 2-3 weeks and he is agreeable Patient counseled extensively to quit drinking and smoking and he verbalized understanding and acceptance I offered home health care for the patient including PT/OT as an outpatient but he declined Physical exam Gen: patient is a AAOx3, no distress CVS: S1-S2, RRR, no murmur Lungs: B/L CTA, no wheezing Abdomen: soft, no distention, no tenderness, positive bowel sounds Extremity: no leg edema or induration -Neuro: Cranial nerves are grossly intact, right hand indoor landscape architect and weakness significantly improved. No significant sensory loss, no numbness. Rest of neurological exam is unremarkable, strength is 5/5 in all extremities. Sen sation intact. Gait is normal Time spent more than 35 minutes Patient Condition at Discharge: Serious Plan - Discharge Summary Discharge Rx Participant: No New Discharge Prescriptions: New Glimepiride [Amaryl] 1 mg PO AC-BRKFST #30 tab Dapagliflozin Propanediol [Farxiga] 5 mg PO DAILY #30 tab amLODIPine [Norvasc] 10 mg PO DAILY #30 tab Thiamine [Vitamin B-1] 100 mg PO DAILY #30 tab Aspirin 81 mg PO DAILY #30 tab Ticagrelor [Brilinta] 90 mg PO BID #60 tab Atorvastatin [Lipitor] 80 mg PO HS #30 tab Continue Omeprazole Magnesium [PriLOSEC OTC] 20 mg PO DAILY Discharge Medication List Omeprazole Magnesium [PriLOSEC OTC] 20 mg PO DAILY 12/19/22 [History] Aspirin 81 mg PO DAILY #30 tab 12/22/22 [Rx] Atorvastatin [Lipitor] 80 mg PO HS #30 tab 12/22/22 [Rx] Dapagliflozin Propanediol [Farxiga] 5 mg PO DAILY #30 tab 12/22/22 [Rx] Glimepiride [Amaryl] 1 mg PO AC-BRKFST #30 tab 12/22/22 [Rx] Thiamine [Vitamin B-1] 100 mg PO DAILY #30 tab 12/22/22 [Rx] Ticagrelor [Brilinta] 90 mg PO BID #60 tab 12/22/22 [Rx] amLODIPine [Norvasc] 10 mg PO DAILY #30 tab 12/22/22 [Rx] Follow up Appointment(s)/Referral(s): Da Duran MD [Primary Care Provider] - 12/27/22 10:20 am Ron Trent MD [STAFF PHYSICIAN] - 2 Weeks (intervention neurologist , for intracranial stenosis) Jim Whitman MD [STAFF PHYSICIAN] - 2 Weeks (office will call you with appt time) Les Macdonald MD [REFERRING] - 2 Weeks (diabetes physician ) Brown Mooney DO [STAFF PHYSICIAN] - 01/11/23 1:30 pm (Vascular surgeon) Moe Peterson DO [STAFF PHYSICIAN] - 2 Weeks Patient Instructions/Handouts: How to Stop Smoking (DC), Type 2 Diabetes in Adults: New Diagnosis (DC), Meal Planning with Diabetes Exchanges (DC), Ischemic Stroke (GEN) Activity/Diet/Wound Care/Special Instructions: A referral was faxed to Dr. Peterson's office. He will review your records and then will call you in about a week with an appointment. Speak with PCP about a referral to outpatient occupational therapy Speak with PCP about a referral to outpatient diabetes education @[facility] heart healthy diet , low carbohydrate diet 1800 kcal per day activity is restricted till you see your doctor we recommend to check your glucose daily, keep the results in a log book and bring it to your doctor upon your appointment date if your glucose is less than 70 or more than 400 then call 911 and come to emergency room last picker glucometer from our pharmacy Discharge Disposition: HOME SELF-CARE
== END 2022-12-22 15:40 | disposition home or self-care (01) | DRG 66 ==
LOC: EC 10:10 → 3SCARD 12:31
PROVIDERS: ADMIT Internal Medicine; ATTEND Internal Medicine
DX: I63.512 Cerebral infarction due to unspecified occlusion or stenosis of left middle cerebral artery (principal); I63.522 Cerebral infarction due to unspecified occlusion or stenosis of left anterior cerebral artery; E11.65 Type 2 diabetes mellitus with hyperglycemia; I65.23 Occlusion and stenosis of bilateral carotid arteries; I10 Essential (primary) hypertension; R29.701 NIHSS score 1; F10.90 Alcohol use, unspecified, uncomplicated; I45.19 Other right bundle-branch block; E78.5 Hyperlipidemia, unspecified; G47.30 Sleep apnea, unspecified; Y90.0 Blood alcohol level of less than 20 mg/100 ml; F17.210 Nicotine dependence, cigarettes, uncomplicated; Z71.6 Tobacco abuse counseling; Z79.899 Other long term (current) drug therapy; Z71.41 Alcohol abuse counseling and surveillance of alcoholic; Z82.49 Family history of ischemic heart disease and other diseases of the circulatory system
CPT/HCPCS: 36415; 70496; 70498; 70544; 70549; 70551; 71046; 80048; 80053; 80061; 80306; 80320; 81240; 81241; 82550; 83036; 83090; 84443; 84484; 85025; 85246; 85300; 85301; 85610; 85613; 85652; 85730; 86038; 86039; 93005; 93306; 93880; 94760; 96360; 96361; 96372; 99291

== ENCOUNTER → 2023-04-25 | Outpatient (CLI) | payer BC ==
[2023-04-25 11:00] LABS: HCT 37.3 % (39.6-50.0); HGB 11.6 d/dL (13.0-17.0); MCHC 31.1 d/dL (32.0-37.0); MCV 80.4 FL (80.0-97.0); Mean Platelet Volume 9.8 FL (9.5-12.2); NRBC Per 100 WBC 0 X 10*3/uL (0.00-0.01); Platelet Count 436 X 10*3/uL (140-440); RBC 4.64 X 10*6/uL (4.40-5.60); RDW 14.9 % (11.5-14.5)
[2023-04-25 11:34] LABS: Blood Urea Nitrogen 14.2 mg/dL (9.0-27.0); Carbon Dioxide 25.5 mmol/L (21.6-31.8); Chloride 106 mmol/L (96-109); Potassium 4.8 mmol/L (3.5-5.5); Sodium 141 mmol/L (135-145)
== END | disposition home or self-care (01) ==
LOC: LABPAT 06:48
PROVIDERS: ATTEND Internal Medicine
DX: Z01.812 Encounter for preprocedural laboratory examination (principal); I70.212 Atherosclerosis of native arteries of extremities with intermittent claudication, left leg
CPT/HCPCS: 80051; 82565; 84520; 85027

== ENCOUNTER 2023-05-02 09:33 | Day surgery (SDC) | payer BC ==
[2023-04-26 17:28] VITALS: BMI 30.2
[~2023-05-02 09:33] MED LIST: ALPRAZolam 0.25 MG TAB PO PRN; ALPRAZolam 0.5 MG TAB PO PRN; ASPIRIN 325 MG TAB PO PRN; HEPARIN SODIUM,PORCINE (1 ML) 2,500 UNIT in SODIUM CHLORIDE 0.9% 250 ML IRRIGATION PRN; HEPARIN SODIUM,PORCINE 10,000 UNIT in SODIUM CHLORIDE 0.9% 1,000 ML IRRIGATION PRN; SODIUM CHLORIDE 0.9% 1,000 ML in EMPTY BAG 1 BAG IV ONE; ZOLPIDEM 5 MG TAB PO PRN
[2023-05-02] MEDS ORDERED: TICAGRELOR 90 MG TAB PO STA (09:45)
[2023-05-02 10:00] LABS: Glucose,Whole Blood 149 mg/dL (70-110)
[2023-05-02 10:04] VITALS: TEMP 98.4
[2023-05-02] MEDS ORDERED: TICAGRELOR 90 MG TAB ONE (10:04)
[2023-05-02] MEDS ORDERED: TICAGRELOR 90 MG TAB PO ONE (10:08)
[2023-05-02 10:27] LABS: Basophils % (A) 1 %; Eosinophils # (A) 0.1 k/uL (0-0.7); Eosinophils % (A) 2 %; HCT 37.6 % (39.0-53.0); HGB 11.9 gm/dL (13.0-17.5); Hypochromasia Moderate; Lymphocytes # (A) 1.3 k/uL (1.0-4.8); Lymphocytes % (A) 21 %; MCH 25.7 pg (25.0-35.0); MCHC 31.5 g/dL (31.0-37.0); MCV 81.6 fL (80.0-100.0); Mean Platelet Volume 7.3; Monocytes # (A) 0.4 k/uL (0-1.0); Monocytes % (A) 6 %; Neutrophils # (A) 4.2 k/uL (1.3-7.7); Neutrophils % (A) 68 %; Platelet Count 393 k/uL (150-450); RBC 4.62 m/uL (4.30-5.90); RDW 14.7 % (11.5-15.5); WBC 6.2 k/uL (3.8-10.6)
[2023-05-02] MEDS ORDERED: HEPARIN SODIUM 1,000 UN/ML (10ML VL) ONE (10:37)
[2023-05-02] MEDS ORDERED: VERAPAMIL 2.5 MG/ML 2 ML AMP ONE (10:37)
[2023-05-02] MEDS ORDERED: LIDOCAINE 1% INJ 10MG/ML (20 ML MDV) ONE (10:37)
[2023-05-02] MEDS ORDERED: fentaNYL (PF) 50 MCG/ML 2 ML AMP ONE (10:38)
[2023-05-02 10:42] LABS: African American GFR (CKD) >90 (>60 ml/min/1.73 sqM); Anion Gap 10 mmol/L; Blood Urea Nitrogen 16 mg/dL (9-20); Calcium 9.3 mg/dL (8.4-10.2); Carbon Dioxide 23 mmol/L (22-30); Chloride 107 mmol/L (98-107); Glucose 147 mg/dL (74-99); Non-African American GFR(CKD) >90 (>60 ml/min/1.73 sqM); Potassium 4.1 mmol/L (3.5-5.1); Sodium 140 mmol/L (137-145)
[2023-05-02] MEDS ORDERED: fentaNYL (PF) 50 MCG/ML 2 ML AMP IVP ONE (11:08)
[2023-05-02] MEDS ORDERED: MIDAZOLAM 2 MG/2 ML VIAL IVP ONE (11:08)
[2023-05-02] MEDS ORDERED: LIDOCAINE 1% INJ 10MG/ML (30 ML VIAL-PF) SQ ONE (11:10)
[2023-05-02] MEDS: HEPARIN SODIUM 1,000 UN/ML (10ML VL) IVP ONE ×3 (11:23→11:45)
[2023-05-02] MEDS ORDERED: IOPAMIDOL-250 100ML BTL INTRAARTER ONE ×2 (11:56)
[2023-05-02] MEDS ORDERED: NALOXONE 0.4 MG/ML 1 ML VIAL IVP PRN (12:04)
[2023-05-02] MEDS ORDERED: SODIUM CHLORIDE 0.9% 1,000 ML in EMPTY BAG 1 BAG IV SCH (12:15)
[2023-05-02 12:36] VITALS: RESP 16
--- NOTE | 2023-05-02 12:43 | IR ---
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 Fluoroscopy was provided to the referring clinician.
--- NOTE | 2023-05-02 15:12 | P.OP ---
Description of Procedure: PROCEDURES PERFORMED: Abdominal angiography with bilateral runoff, SLITTER CREASER SLOTTER HELPER and DCB left SFA with a 6.0 x 40mm IN.PACT balloon INDICATION: [place] class 3 claudication with 2 blocks, PAD with carotid artery stenosis CONSENT:I have discussed the risks, benefits and alternative therapies for the above-mentioned procedure and for both sedation/analgesia as well as necessary blood product administration, if indicated, as they pertain to this patient. The patient has indicated understanding and acceptance of the risks and procedures discussed. PROCEDURE: After the risks, benefits and alternatives of the above mentioned procedure explained in detail with the patient, informed consent was obtained. Patient was taken to the catheterization lab and prepped and draped in usual fashion. 1% lidocaine was used to anesthetize the right femoral area. A 5- Italian sheath was placed in the right femoral artery using modified Seldinger technique. A 5-Italian pigtail catheter was inserted to the abdominal aorta and DSA imaging was obtained. Patient tolerated the diagnostic portion well. Next, the decision was made to perform intervention of of the left SFA. IV heparin was given. A 0.035 stiff glide wire was used to cross the lesion. The 5-Italian sheath was exchanged for a 6-Italian destination sheath. Balloon angioplasty was performed with a 5.0 x 20 mm balloon. Next drug-coated balloon angioplasty was performed with a 6.0 x 40 mm IN.PACT DCB. Final angiograms were performed. Pre intervention there was 80% stenosis with ALLI 3 flow. Post intervention there was <10% stenosis and ALLI 3 flow. A right femoral angiogram was performed and anatomoy was suitable for closure. A 6Fr Angioseal was placed with hemostasis achieved. The patient tolerated the procedure well. Patient was transported back to the post catheterization holding area in stable condition. Conscious Sedation: Patient was monitored under the direct supervision of vision of myself for conscious sedation using Versed and fentanyl for a total duration of 44minutes HEMODYNAMICS: Aortic: 137/72 Abdominal aorta: The abdominal aorta has mild calcifcation. Renal arteries were not full imaged however right appears widely patent. There is no significant dissection or aneurysm. There is no significant stenosis. Right lower extremity: Right common iliac artery: There is no significant stenosis. Right external iliac artery: There is no significant stenosis. Right internal iliac artery: There is no significant stenosis. Right common femoral artery: There is no significant stenosis. Right profunda: There is no significant stenosis. Right SFA: There is no significant stenosis. Right popliteal artery: There is no significant stenosis. There is 2 vessel runoff with smaller caliber peroneal Left lower extremity: Left common iliac artery: There is no significant stenosis. Left external iliac artery: There is no significant stenosis. Left internal iliac artery: There is no significant stenosis. Left common femoral artery: There is no significant stenosis. Left profunda: There is no significant stenosis. Left SFA: There is no significant stenosis. Left popliteal artery: There is no significant stenosis. There is 2 vessel runoff with smaller caliber peroneal artery FINAL IMPRESSION: 1. Peripheral arterial disease as described above including 80% focal left SFA stenosis. PLAN: 1. Aggressive risk factor modification per most recent ACC/AHA guidelines. 2. Continue dual antiplatelets with aspirin and Brilinta for her three-month minimum 3. Patient having pain bilaterally however no significant disease to explain right calf pain. If pain persists, consider other etiologies.
[2023-05-02 15:18] VITALS: BP 144/85
[2023-05-02 16:34] VITALS: PULSE 70
[2023-05-02] MEDS ORDERED: ATORVASTATIN 80 MG TAB PO SCH (21:00)
[2023-05-02] MEDS ORDERED: TICAGRELOR 90 MG TAB PO SCH (21:00)
[2023-05-03] MEDS ORDERED: GLIMEPIRIDE 1 MG TAB PO SCH (07:30)
[2023-05-03] MEDS ORDERED: PANTOPRAZOLE 40 MG TABLET PO SCH (07:30)
[2023-05-03] MEDS ORDERED: ASPIRIN 81 MG PO SCH (09:00)
[2023-05-03] MEDS ORDERED: DAPAGLIFLOZIN PROPANEDIOL 5 MG TABLET PO SCH (09:00)
[2023-05-03] MEDS ORDERED: amLODIPine 10 MG TAB PO SCH (09:00)
[2023-05-03] MEDS ORDERED: THIAMINE 100 MG TAB PO SCH (09:00)
[2023-05-03] MEDS ORDERED: LOSARTAN 25 MG TAB PO SCH (09:00)
== END 2023-05-02 16:24 | disposition home or self-care (01) ==
LOC: CATHCVL 09:33
PROVIDERS: ATTEND Internal Medicine
DX: I73.9 Peripheral vascular disease, unspecified (principal); I65.29 Occlusion and stenosis of unspecified carotid artery; E11.9 Type 2 diabetes mellitus without complications; I10 Essential (primary) hypertension; Z79.02 Long term (current) use of antithrombotics/antiplatelets; Z79.82 Long term (current) use of aspirin; Z86.73 Personal history of transient ischemic attack (TIA), and cerebral infarction without residual deficits; Z87.891 Personal history of nicotine dependence; Z79.899 Other long term (current) drug therapy; Z79.84 Long term (current) use of oral hypoglycemic drugs
CPT/HCPCS: 36200; 37224; 75625; 75716; 80048; 85025; C1769 ×4; C1760; C1894 ×2; C1725; C2623; J2250; J2001; J3010; J1644; Q9966

== ENCOUNTER 2023-08-23 16:13 | Observation (INO) | payer BC ==
--- NOTE | 2023-08-23 16:37 | ED ---
Neuro HPI - General Chief Complaint: Neuro Symptoms/Deficit Stated Complaint: Slurred Speech Time Seen by Provider: 08/23/23 16:29 Source: patient, family, RN notes reviewed Mode of arrival: ambulatory Limitations: no limitations - History of Present Illness Is the patient presenting with stroke symptoms?: Yes Last Known Well Date: 08/23/23 Last Known Well Time: 15:30 Onset/Timin -: minutes(s) Initial Comments: This is a pleasant 48-year-old male who presents to the emergency department after having several minutes of slurred speech and confusion when he was at work. Patient states he was trying to operate a coffee machine at about 3:30 PM. Patient states that for about 10 minutes he could not figure out how to use the machine. He was also speaking to a coworker and words were coming out like gibberish. Patient does recall this. Denied any arm or leg weakness. No vertigo symptoms. No loss of vision. No paresthesias. Patient does have a history of a stroke in the spring of last year and had some residual deficit involving his right arm and hand. Apparently this is almost back to baseline. Patient did not receive tPA or any invasive intervention. Patient denying any chest pain or shortness of breath. No fever or chills. No abdominal pain. No nausea or vomiting. No ataxia. Patient states this went on for about 10 minutes. Patient now back to baseline. Location: speech History of same: Yes (Previous CVA affecting right side spring of last year) Place: work Severity: mild Quality: other (Dysarthria, slurred speech) Improves With: time Worsens With: none Context: sudden onset Associated Symptoms: denies other symptoms, confusion Treatments Prior to Arrival: none - Related Data Home Medications: Home Medications Medication Instructions Recorded Confirmed Omeprazole Magnesium [PriLOSEC OTC] 20 mg PO DAILY 12/19/22 05/02/23 metFORMIN HCL [Glucophage] 500 mg PO BID 04/26/23 05/02/23 Previous Rx's Medication Instructions Recorded Aspirin 81 mg PO DAILY #30 tab 12/22/22 Atorvastatin [Lipitor] 80 mg PO HS #30 tab 12/22/22 Dapagliflozin Propanediol [Farxiga] 5 mg PO DAILY #30 tab 12/22/22 Glimepiride [Amaryl] 1 mg PO AC-BRKFST #30 tab 12/22/22 Thiamine [Vitamin B-1] 100 mg PO DAILY #30 tab 12/22/22 Ticagrelor [Brilinta] 90 mg PO BID #60 tab 12/22/22 amLODIPine [Norvasc] 10 mg PO DAILY #30 tab 12/22/22 Allergies/Adverse Reactions: Allergies Allergy/AdvReac Type Severity Reaction Status Date / Time No Known Allergies Allergy Verified 05/02/23 09:41 Review of Systems ROS Statement: Those systems with pertinent positive or pertinent negative responses have been documented in the HPI. ROS Other: All systems not noted in ROS Statement are negative. General Exam Limitations: no limitations General appearance: alert, in no apparent distress Head exam: Present: atraumatic, normocephalic, normal inspection Eye exam: Present: normal appearance, PERRL, EOMI. Absent: scleral icterus, conjunctival injection, periorbital swelling ENT exam: Present: normal exam, mucous membranes moist Neck exam: Present: normal inspection. Absent: tenderness, meningismus, lymphadenopathy Respiratory exam: Present: normal lung sounds bilaterally. Absent: respiratory distress, wheezes, rales, rhonchi, stridor Cardiovascular Exam: Present: regular rate, normal rhythm, normal heart sounds. Absent: systolic murmur, diastolic murmur, rubs, gallop, clicks GI/Abdominal exam: Present: soft, normal bowel sounds. Absent: distended, tenderness, guarding, rebound, rigid Extremities exam: Present: normal inspection, full ROM, normal capillary refill. Absent: tenderness, pedal edema, joint swelling, calf tenderness Back exam: Present: normal inspection Neurological exam: Present: alert, oriented X3, CN II-XII intact Expanded Patient oriented to: Present: person, place Speech: Present: fluid speech Cranial nerves: EOM's Intact: Normal, Gag Reflex: Normal, Tongue Deviation: Normal, Nystagmus: Normal, Facial Sensation: Normal, Facial Palsy with Forehead Movement: Normal, Facial Palsy without Forehead Movement: Normal Cerebellar function: Finger to Nose: Normal, Heel to [place]: Normal, Romberg: Normal Upper motor neuron: Jone Neglect: Normal, Pronator Drift: Normal, Babinski Sign: Normal, Sensory Extinction: Normal Sensory exam: Upper Extremity Light Touch: Normal, Upper Extremity Pin Prick: Normal, Upper Extremity Temperature: Normal, UE 2 Point Discrimination: Normal, Lower Extremity Light Touch: Normal, Lower Extremity Pin Prick: Normal, Lower Extremity Temperature: Normal, LE 2 Point Discrimination: Normal Motor strength exam: RUE: 5, LUE: 5, RLE: 5, LLE: 5 Eye Response: (4) open spontaneously Motor Response: (6) obeys commands Verbal Response: (5) oriented Psychiatric exam: Present: normal affect, normal mood Skin exam: Present: warm, dry, intact, normal color. Absent: rash Stroke MDM - Lab Data Result diagrams: 08/23/23 16:37 08/23/23 16:37 Lab Results 08/23/23 08/23/23 08/23/23 Range/Units 16:37 16:37 16:37 WBC 6.7 (3.8-10.6) k/uL RBC 3.73 L (4.30-5.90) m/uL Hgb 8.3 L (13.0-17.5) gm/dL Hct 26.6 L (39.0-53.0) % MCV 71.1 L (80.0-100.0) fL MCH 22.1 L (25.0-35.0) pg MCHC 31.1 (31.0-37.0) g/dL RDW 16.1 H (11.5-15.5) % Plt Count 481 H (150-450) k/uL MPV 7.0 Neutrophils % 65 % Lymphocytes % 24 % Monocytes % 5 % Eosinophils % 2 % Basophils % 1 % Neutrophils # 4.4 (1.3-7.7) k/uL Lymphocytes # 1.6 (1.0-4.8) k/uL Monocytes # 0.4 (0-1.0) k/uL Eosinophils # 0.1 (0-0.7) k/uL Basophils # 0.1 (0-0.2) k/uL Hypochromasia Marked Poikilocytosis Slight Anisocytosis Slight Microcytosis Moderate PT 10.5 (10.0-12.5) sec INR 0.9 (<1.2) APTT 22.2 (22.0-30.0) sec Sodium 138 (137-145) mmol/L Potassium 3.6 (3.5-5.1) mmol/L Chloride 108 H (98-107) mmol/L Carbon Dioxide 22 (22-30) mmol/L Anion Gap 8 mmol/L BUN 12 (9-20) mg/dL Creatinine 0.71 (0.66-1.25) mg/dL Est GFR (CKD-EPI)AfAm >90 (>60 ml/min/1.73 sqM) Est GFR (CKD-EPI)NonAf >90 (>60 ml/min/1.73 sqM) Glucose 162 H (74-99) mg/dL Calcium 9.1 (8.4-10.2) mg/dL Magnesium 1.8 (1.6-2.3) mg/dL Total Bilirubin 0.3 (0.2-1.3) mg/dL AST 24 (17-59) U/L ALT 27 (4-49) U/L Alkaline Phosphatase 84 (38-126) U/L Creatine Kinase 153 (55-170) U/L Troponin I (0.000-0.034) ng/mL Total Protein 6.9 (6.3-8.2) g/dL Albumin 4.2 (3.5-5.0) g/dL 08/23/23 Range/Units 16:37 WBC (3.8-10.6) k/uL RBC (4.30-5.90) m/uL Hgb (13.0-17.5) gm/dL Hct (39.0-53.0) % MCV (80.0-100.0) fL MCH (25.0-35.0) pg MCHC (31.0-37.0) g/dL RDW (11.5-15.5) % Plt Count (150-450) k/uL MPV Neutrophils % % Lymphocytes % % Monocytes % % Eosinophils % % Basophils % % Neutrophils # (1.3-7.7) k/uL Lymphocytes # (1.0-4.8) k/uL Monocytes # (0-1.0) k/uL Eosinophils # (0-0.7) k/uL Basophils # (0-0.2) k/uL Hypochromasia Poikilocytosis Anisocytosis Microcytosis PT (10.0-12.5) sec INR (<1.2) APTT (22.0-30.0) sec Sodium (137-145) mmol/L Potassium (3.5-5.1) mmol/L Chloride (98-107) mmol/L Carbon Dioxide (22-30) mmol/L Anion Gap mmol/L BUN (9-20) mg/dL Creatinine (0.66-1.25) mg/dL Est GFR (CKD-EPI)AfAm (>60 ml/min/1.73 sqM) Est GFR (CKD-EPI)NonAf (>60 ml/min/1.73 sqM) Glucose (74-99) mg/dL Calcium (8.4-10.2) mg/dL Magnesium (1.6-2.3) mg/dL Total Bilirubin (0.2-1.3) mg/dL AST (17-59) U/L ALT (4-49) U/L Alkaline Phosphatase (38-126) U/L Creatine Kinase (55-170) U/L Troponin I <0.012 (0.000-0.034) ng/mL Total Protein (6.3-8.2) g/dL Albumin (3.5-5.0) g/dL - NIH Stroke Scale 1a. Level of Consciousness: (0) alert 1b. LOC Questions: (0) answers correctly 1c. LOC Commands: (0) performs tasks correctly 2. Best Gaze: (0) normal 3. Visual: (0) no visual loss 4. Facial Palsy: (0) normal symmetrical movement 5a. Motor Arm Left: (0) no drift 5b. Motor Arm Right: (0) no drift 6a. Motor Leg Left: (0) no drift 6b. Motor Leg Right: (0) no drift 7. Limb Ataxia: (0) absent 8. Sensory: (0) normal 9. Best Language: (0) no aphasia 10. Dysarthria: (0) normal 11. Extinction/Inattention: (0) no abnormality - Thrombolytic Inclusion/Exclusion Thrombolytic Inclusion Criteria: Symptom Onset < 4.5 h - Core Measures AMI Core Measures Followed: Yes - Medical Decision Making The case was discussed in detail with ED attending physician. Presentation, findings, treatment plan discussed in detail. Was pt. sent in by a medical professional or institution? @ -No Did you speak to anyone other than the patient for history? @ -Patient's also in the room providing additional history Did you review nursing and triage notes? @ -Agree Were old charts reviewed? @ -Old charts reviewed from previous admission for CVA last November. Reviewed previous laboratory data. Differential Diagnosis? @ -Differential diagnosis includes but is not limited to: TIA, CVA, hemorrhagic versus ischemic cerebrovascular accident, electrolyte disturbance, h ypoglycemia. EKG interpreted by me (3pts min.)? @ -EKG independently interpreted by me at 1648 reveals sinus rhythm with a rate of 88, WA interval 206 ms. Other intervals are normal. Normal axis. No ST elevation or depression. Normal QRS morphology. When compared to the previous study from December 22, 2022 there is no significant change. Reviewed with the ED attending physician. X-rays interpreted by me (1pt min.)? @ -Independent interpretation, see ED course CT interpreted by me (1pt min.)? @ -Independent interpretation, see ED course U/S interpreted by me (1pt. min.)? @ -[none] What testing was considered but not performed? (CT, X-rays, U/S, labs)? Why? @MRI was considered, will order as an inpatient. What meds were considered but not given? Why? @ -[none] Did you discuss the management of the patient with other professionals? @ -Case discussed with the admitting APC, Kenia Jack who is on-call for [facility], case discussed in detail. Did you reconcile home meds? @ -Yes Was smoking cessation discussed for >3mins.? @ -[none] Was critical care preformed (if so, how long)? @ -[none] Were there social determinants of health that impacted care today? How? (Homelessness, low income, unemployed, alcoholism, drug addiction, transportation, low edu. Level, literacy, decrease access to med. care, long-term, rehab)? @ -None noted Was there de-escalation of care discussed even if they declined? (Discuss DNR or withdrawal of care, Hospice)? @ -[Discuss DNR or withdrawal of care, Hospice?] What co-morbidities impacted this encounter? (DM, HTN, Smoking, COPD, CAD, Cancer, CVA, Hep., AIDS, mental health diagnosis, sleep apnea, morbid obesity)? @ -Previous CVA, hypertension, diabetes mellitus type 2 Was patient admitted / discharged? @ -Admitted, stable condition, NIH 0, no change in neurological status Undiagnosed new problem with uncertain prognosis? @ -[none] Drug Therapy requiring intensive monitoring for toxicity (Heparin, Nitro, Insulin, Cardizem)? @ -[none] Were any procedures done? @ -[none] Diagnosis/symptom? @ -Acute TIA, microcytic anemia Acute, or Chronic, or Acute on Chronic? @ -Acute Uncomplicated (without systemic symptoms) or Complicated (systemic symptoms)? @ -Complicated Side effects of treatment? @ -[none] Exacerbation, Progression, or Severe Exacerbation] @ -[no] Poses a threat to life or bodily function? @ -Unlikely at this point The case was discussed in detail with ED attending physician. Presentation, findings, treatment plan discussed in detail. Dr. Collado Admission discussed with both the patient and his spouse. Patient will be admitted to [facility] hospitalist group for further evaluation, treatment, disposition. Consults placed for vascular surgery and neurology. Past Medical History Past Medical History: CVA/TIA, Diabetes Mellitus, Hyperlipidemia, Hypertension, Myocardial Infarction (OR), Sleep Apnea/CPAP/BIPAP Additional Past Medical History / Comment(s): 12/19/22-CVA-NO LASTING EFFECTS, Last Myocardial Infarction Date:: 12/19/22 History of Any Multi-Drug Resistant Organisms: None Reported Past Surgical History: Heart Catheterization Additional Past Surgical History / Comment(s): sleep apnea surgery Past Anesthesia/Blood Transfusion Reactions: No Reported Reaction Past Psychological History: No Psychological Hx Reported Smoking Status: Current every day smoker - Past Family History Mother Family Medical History: Myocardial Infarction (OR) Additional Family Medical History / Comment(s): pts maternal gradfather in his 40;s from a heart attack Course Vital Signs 08/23/23 16:18 Temperature 99.2 F Pulse Rate 97 Respiratory 20 Rate Blood Pressure 165/88 O2 Sat by Pulse 99 Oximetry - Reevaluation(s) Reevaluation #1: 08/23/23 17:43 Patient reevaluated, no change in neurological status. NIH is 0. CT scan of the brain shows no evidence of acute pathology. Old CVA noted in the left parietal lobe. CTA head neck shows previous demonstrations of both left and right internal carotid artery stenosis. High-grade, complete occlusion of the left ICA, greater than 70% right ICA Independent interpretation of the patient's chest x-ray, CT scan of the brain, CTA angio head and neck by me shows no definitive acute pathology. I did review radiology interpretation Reevaluation #2: 08/23/23 17:56 Case discussed in detail with the ED attending physician, Dr. Collado. Decision made to admit the patient to hospitalist, [facility]. Rectal examination was performed. Adequate rectal tone. Chaperoned. No gross stool. Hemoccult sent. Note that the patient's CT angiogram head and neck redemonstrated 100% blockage of the left ICA and significant blockage of the right ICA. Apparently the patient saw a vascular surgeon here during the last CVA and subsequently saw a vascular surgeon in the [place] area. Both specialist stated that there was nothing intervention zacarias that would be done due to it being "too dangerous. " Disposition Clinical Impression: Transient ischemic attack, acute, Microcytic anemia Disposition: ADMITTED IP TO THIS [facility] Condition: Stable Is patient prescribed a controlled substance at d/c from ED?: No Referrals: Da Duran MD [Primary Care Provider] - 1-2 days Time of Disposition: 18:00 Decision to Admit Reason: Admit from EC Decision Time: 18:00
[2023-08-23] MEDS ORDERED: SODIUM CHLORIDE 0.9% 1,000 ML IV ONE (16:42)
[2023-08-23 17:08] LABS: Anisocytosis Slight; Basophils # (A) 0.1 k/uL (0-0.2); Basophils % (A) 1 %; Eosinophils # (A) 0.1 k/uL (0-0.7); Eosinophils % (A) 2 %; HCT 26.6 % (39.0-53.0); HGB 8.3 gm/dL (13.0-17.5); Hypochromasia Marked; Lymphocytes # (A) 1.6 k/uL (1.0-4.8); Lymphocytes % (A) 24 %; MCH 22.1 pg (25.0-35.0); MCHC 31.1 g/dL (31.0-37.0); MCV 71.1 fL (80.0-100.0); Microcytosis Moderate; Monocytes # (A) 0.4 k/uL (0-1.0); Monocytes % (A) 5 %; Neutrophils # (A) 4.4 k/uL (1.3-7.7); Neutrophils % (A) 65 %; Platelet Count 481 k/uL (150-450); Poikilocytosis Slight; RBC 3.73 m/uL (4.30-5.90); RDW 16.1 % (11.5-15.5); WBC 6.7 k/uL (3.8-10.6)
[2023-08-23 17:18] LABS: ALT 27 U/L (4-49); AST 24 U/L (17-59); African American GFR (CKD) >90 (>60 ml/min/1.73 sqM); Albumin 4.2 g/dL (3.5-5.0); Alkaline Phosphatase 84 U/L (38-126); Anion Gap 8 mmol/L; Blood Urea Nitrogen 12 mg/dL (9-20); Calcium 9.1 mg/dL (8.4-10.2); Carbon Dioxide 22 mmol/L (22-30); Chloride 108 mmol/L (98-107); Creatine Kinase 153 U/L (55-170); Glucose 162 mg/dL (74-99); Magnesium 1.8 mg/dL (1.6-2.3); Non-African American GFR(CKD) >90 (>60 ml/min/1.73 sqM); Sodium 138 mmol/L (137-145); Total Bilirubin 0.3 mg/dL (0.2-1.3); Total Protein 6.9 g/dL (6.3-8.2)
--- NOTE | 2023-08-23 17:26 | XR ---
EXAMINATION TYPE: XR chest 2V DATE OF EXAM: 08/23/2023 COMPARISON: 12/19/2022 HISTORY: 48-year-old male confusion, altered mental status TECHNIQUE: PA and lateral views FINDINGS: The cardiomediastinal silhouette, aorta, and pulmonary vasculature are within normal limits. Lungs an d pleural spaces are clear. IMPRESSION: No acute cardiopulmonary process.
[2023-08-23 17:28] LABS: INR 0.9 (<1.2); Partial Thromboplastin Time 22.2 sec (22.0-30.0); Prothrombin Time 10.5 sec (10.0-12.5)
--- NOTE | 2023-08-23 17:29 | CT ---
EXAMINATION TYPE: CT brain wo con DATE OF EXAM: 08/23/2023 COMPARISON: Correlation MRI 12/21/2022 HISTORY: 48-year-old male 1530 episode unable to get to use copy machine, aphasia for 30 min. Now alia ar speech, symmetrical smile, no deviation of tongue, no pronator drift. TECHNIQUE: Examination was done in axial plane without intravenous contrast. Coronal and sagittal r econstructions performed. CT DLP: Combined DLP of 1788.4 mGycm Automated exposure control for dose reduction was used. FINDINGS: There is no evidence of acute intracranial hemorrhage, acute ischemic changes, mass, mass-effect, or extra-axial fluid collection. There is no effacement of cerebral sulci or basal subarachnoid cister ns. There is no hydrocephalus. There is no midline shift. Loera-white matter distinction is preserv ed. There is encephalomalacia anterior left parietal cortex. Some chronic white matter encephalomalacia p osterior left centrum semiovale. Slight leftward nasal septal deviation. Trace mucosal thickening maxillary sinuses and ethmoid air ce lls. Orbits and globes are intact. Mastoid air cells well pneumatized. Cerumen left external auditory canal. IMPRESSION: No acute intracranial abnormality seen. Old cortical infarct anterior left parietal lobe and underlyi ng deep white matter.
[2023-08-23 17:40] LABS: Potassium 3.6 mmol/L (3.5-5.1)
--- NOTE | 2023-08-23 17:40 | CT ---
EXAMINATION TYPE: CT angio head neck DATE OF EXAM: 08/23/2023 COMPARISON: 12/19/2022 HISTORY: 48-year-old male 1530 episode unable to get to use copy machine, aphasia for 30 min. Now alia ar speech, symmetrical smile, no deviation of tongue, no pronator drift. TECHNIQUE: Contiguous axial scanning of the head and neck performed with IV Contrast, patient injecte d with 65 mL of Isovue 370. Coronal and sagittal reconstructions performed. 3-D reconstructions gener ated on a dedicated independent workstation. CT DLP: Combined DLP of 1788.4 mGycm Automated exposure control for dose reduction was used. FINDINGS: Neck: There is bovine configuration to the aortic arch. Codominant bilateral vertebral arteries which are patent throughout their course. The right common carotid artery is patent. Mild atherosclerotic calcification and plaque within the right carotid bulb without any significant n arrowing by NASCET criteria. However, there is redemonstrated greater than 70%, severe stenosis at the junction of the cervical an d cranial portion of the right ICA as it enters the petrous portion. The left common carotid artery is patent. Mild to moderate prostatic plaque and calcification of the left carotid bulb. There is redemonstrated tapering and cut off of contrast at the proximal left ICA. Some asymmetric thickening along the left. Old likely positional. Head: The vertebral and basilar arteries as well as the remainder of the posterior circulation appear paten t. There appears to be severe focal stenosis right ICA at the proximal cavernous segment. Additional mod erate segmental stenoses throughout the right carotid siphon redemonstrated.. Occlusion of the left ICA with reconstitution of the supraclinoid portion. Remainder of the anterior circulation appears patent. Dural venous sinuses are patent. IMPRESSION: NECK: 1. REDEMONSTRATED PROXIMAL LEFT ICA OCCLUSION. 2. REDEMONSTRATED SEVERE, GREATER THAN 70% STENOSIS UPPER CERVICAL RIGHT ICA JUST PRIOR TO ENTERING T HE SKULL BASE. HEAD: 3. LEFT ICA OCCLUSION CONTINUES INTO THE HEAD. THERE IS RECONSTITUTION AT THE SUPRACLINOID PORTION, A S SEEN PREVIOUSLY. 4. REDEMONSTRATED SEVERE FOCAL STENOSIS PROXIMAL CAVERNOUS SEGMENT RIGHT ICA. THERE ARE OTHER MODERAT E SEGMENTAL STENOSES THROUGHOUT THE RIGHT CAROTID SIPHON.
[2023-08-23] MEDS ORDERED: ASPIRIN 325 MG TAB PO STA (17:45)
[2023-08-23] MEDS: SODIUM CHLORIDE 0.9% 1,000 ML IV SCH (18:00)
[2023-08-23] MEDS ORDERED: ACETAMINOPHEN TAB 325 MG TAB PO PRN (18:00)
[2023-08-23] MEDS ORDERED: ONDANSETRON 4 MG/2 ML VIAL IVP PRN (18:00)
[2023-08-23] MEDS ORDERED: NALOXONE 0.4 MG/ML 1 ML VIAL IV PRN (18:00)
[2023-08-23] MEDS ORDERED: DEXTROSE 50% SYRINGE 50 ML IVP PRN ×2 (18:14)
[2023-08-23 21:30] LABS: Glucose,Whole Blood 162 mg/dL (70-110)
[2023-08-23] MEDS: INSULIN ASPART (NovoLOG) 100 UNIT/ML VIAL SQ SCH (21:57)
[2023-08-23] MEDS: ATORVASTATIN 80 MG TAB PO SCH (21:57)
[2023-08-24 08:12] LABS: Glucose,Whole Blood 140 mg/dL (70-110)
[2023-08-24] MEDS: INSULIN ASPART (NovoLOG) 100 UNIT/ML VIAL SQ SCH ×5 (08:13→20:55)
[2023-08-24] MEDS: ASPIRIN 81 MG PO SCH (08:16)
[2023-08-24] MEDS: PANTOPRAZOLE 40 MG/10 ML VIAL IV SCH (08:18)
[2023-08-24] MEDS: amLODIPine 10 MG TAB PO SCH (10:46)
[2023-08-24] MEDS: metFORMIN 500 MG TAB PO SCH ×2 (10:46→18:34)
[2023-08-24] MEDS: TICAGRELOR 90 MG TAB PO SCH ×2 (10:46→20:52)
[2023-08-24] MEDS: lisinopriL 10 MG TAB PO SCH (10:46)
[2023-08-24 12:01] LABS: Glucose,Whole Blood 131 mg/dL (70-110)
[2023-08-24] MEDS: GLIMEPIRIDE 1 MG TAB PO SCH (12:42)
--- NOTE | 2023-08-24 12:48 | P.HPIM ---
History of Present Illness H&P Date: 08/24/23 Chief Complaint: Dysarthria * 48-year-old gentleman with past medical history significant for CVA, diabetes mellitus, left internal carotid artery occlusion, right internal carotid artery stenosis, chronic right bundle branch block who presents to the emergency department with complaints of slurred speech that started at work. 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 Patient symptom lasted for about 10 minutes. He was accompanied by a coworker and apparently words were coming out gibberish. Patient was able to recall the events. Patient denied any associated dizziness paresthesia in arms or legs. Denies any vision loss. Patient was back to baseline at the time of presentation in ER. Workup initiated in ER included basic metabolic panel which showed sodium of 138 potassium 3.6 BUN 12 creatinine 0.71 INR of 0.9 CBC showed WBC 6.7 hemoglobin 8.3 platelet count of 481 while in the ER patient had NIH score of 0. CT brain was obtained which was negative for acute pathology, old CVA noted in the left parietal lobe, CT angio head and neck demonstrated left and right internal carotid artery stenosis, high-grade complete occlusion of left ICA was noted greater than 70% right ICA stenosis was noted. Vascular surgery was consulted along with neurology consultation. REVIEW OF SYSTEMS: Dysarthria, expressive aphasia resolved CONSTITUTIONAL: No fever, no malaise, no fatigue. HEENT: No recent visual problems or hearing problems. Denied any sore throat. CARDIOVASCULAR: No chest pain, orthopnea, PND, no palpitations, no syncope. PULMONARY: No shortness of breath, no cough, no hemoptysis. GASTROINTESTINAL: No diarrhea, no nausea, no vomiting, no abdominal pain. NEUROLOGICAL: Dysarthria, expressive aphasia resolved HEMATOLOGICAL: Denies any bleeding or petechiae. GENITOURINARY: Denies any burning micturition, frequency, or urgency. MUSCULOSKELETAL/RHEUMATOLOGICAL: Denies any joint pain, swelling, or any muscle pain. ENDOCRINE: Denies any polyuria or polydipsia. PHYSICAL EXAMINATION: GENERAL: The patient is alert and oriented x3, Well developed, well nourished. HEENT: Pupils are round and equally reacting to light. EOMI. No scleral icterus. No conjunctival pallor. Normocephalic, atraumatic. No pharyngeal erythema. No thyromegaly. CARDIOVASCULAR: S1 and S2 present. No murmurs, rubs, or gallops. PULMONARY: Chest is clear to auscultation, no wheezing or crackles. ABDOMEN: Soft, nontender, nondistended, normoactive bowel sounds. No palpable organomegaly. MUSCULOSKELETAL: No joint swelling or deformity. EXTREMITIES: No cyanosis, clubbing, or pedal edema. NEUROLOGICAL: Gross neurological examination did not reveal any focal deficits. SKIN: No rashes. Past Medical History Past Medical History: CVA/TIA, Diabetes Mellitus, Hyperlipidemia, Hypertension, Myocardial Infarction ([place]), Sleep Apnea/CPAP/BIPAP Additional Past Medical History / Comment(s): 12/19/22-CVA-NO LASTING EFFECTS, Last Myocardial Infarction Date:: 12/19/22 History of Any Multi-Drug Resistant Organisms: None Reported Past Surgical History: Heart Catheterization Additional Past Surgical History / Comment(s): sleep apnea surgery Past Anesthesia/Blood Transfusion Reactions: No Reported Reaction Past Psychological History: No Psychological Hx Reported Smoking Status: Current every day smoker - Past Family History Mother Family Medical History: Myocardial Infarction ([place]) Additional Family Medical History / Comment(s): pts maternal gradfather in his 40;s from a heart attack Medications and Allergies Home Medications Medication Instructions Recorded Confirmed Type Omeprazole Magnesium [PriLOSEC OTC] 20 mg PO DAILY 12/19/22 08/23/23 History Aspirin 81 mg PO DAILY #30 tab 12/22/22 08/23/23 Rx Atorvastatin [Lipitor] 80 mg PO HS #30 tab 12/22/22 08/23/23 Rx Glimepiride [Amaryl] 1 mg PO AC-BRKFST #30 tab 12/22/22 08/23/23 Rx Ticagrelor [Brilinta] 90 mg PO BID #60 tab 12/22/22 08/23/23 Rx amLODIPine [Norvasc] 10 mg PO DAILY #30 tab 12/22/22 08/23/23 Rx Aspirin EC [Ecotrin Low Dose] 81 mg PO DAILY 08/23/23 08/23/23 History Empagliflozin [Jardiance] 25 mg PO DAILY 08/23/23 08/23/23 History lisinopriL [Zestril] 10 mg PO DAILY 08/23/23 08/23/23 History metFORMIN HCL ER [Glucophage XR] 500 mg PO BID 08/23/23 08/23/23 History Allergies Allergy/AdvReac Type Severity Reaction Status Date / Time No Known Allergies Allergy Verified 08/23/23 18:49 Physical Exam Vitals: Vital Signs Temp Pulse Resp BP Pulse Ox 08/24/23 08:15 98.3 F 78 16 154/92 97 08/24/23 06:59 78 16 162/90 99 08/24/23 04:32 77 16 150/85 97 08/23/23 23:54 78 16 143/86 98 08/23/23 21:00 18 144/78 08/23/23 20:30 83 17 144/84 08/23/23 20:00 81 25 H 146/79 08/23/23 19:30 83 17 140/75 08/23/23 19:00 81 19 143/83 94 L 08/23/23 18:30 83 21 153/86 94 L 08/23/23 18:00 93 17 162/91 96 08/23/23 17:30 80 16 96 08/23/23 16:18 99.2 F 97 20 165/88 99 Intake and Output 08/23/23 08/24/23 08/24/23 22:59 06:59 14:59 Other: Weight 97.522 kg Results CBC & Chem 7: 08/23/23 16:37 08/23/23 16:37 Labs: Abnormal Lab Results - Last 24 Hours (Table) 08/23/23 08/23/23 08/23/23 Range/Units 16:37 16:37 21:29 RBC 3.73 L (4.30-5.90) m/uL Hgb 8.3 L (13.0-17.5) gm/dL Hct 26.6 L (39.0-53.0) % MCV 71.1 L (80.0-100.0) fL MCH 22.1 L (25.0-35.0) pg RDW 16.1 H (11.5-15.5) % Plt Count 481 H (150-450) k/uL Chloride 108 H (98-107) mmol/L Glucose 162 H (74-99) mg/dL POC Glucose (mg/dL) 162 H (70-110) mg/dL 01/31/24 Range/Units 08:11 RBC (4.30-5.90) m/uL Hgb (13.0-17.5) gm/dL Hct (39.0-53.0) % MCV (80.0-100.0) fL MCH (25.0-35.0) pg RDW (11.5-15.5) % Plt Count (150-450) k/uL Chloride (98-107) mmol/L Glucose (74-99) mg/dL POC Glucose (mg/dL) 140 H (70-110) mg/dL Assessment and Plan Assessment: Assessment and plan * History of CVA with acute onset expressive aphasia rule out acute CVA * History of bilateral carotid artery stenosis * Chronic left parietal lobe infarct * Diabetes mellitus type 2 * Peripheral arterial disease with 80% focal left SFA stenosis * Microcytic anemia * In regards to acute neurological deficit prior to admission/rule out CVA, CT head CT angio head and neck reviewed, continue neurochecks, neurology consulted continue dual antiplatelet, continue statin MRI brain ordered * Regards to bilateral carotid artery stenosis MRI brain ordered, follow-up on results, CT head CT angio head and neck reviewed neurology consulted * In regards to history of hypertension continue patient on amlodipine and lisinopril * In regards to diabetes mellitus Accu-Cheks ACHS continue patient on correctional insulin, continue metformin and glipizide * In regards to history of peripheral arterial disease continue aspirin and Brilinta, continue statin * In regards to microcytic anemia, iron panel ordered fecal occult blood test negative * CODE STATUS is full code Time with Patient: Greater than 30
--- NOTE | 2023-08-24 14:44 | P.GSCN ---
History of Present Illness Consult date: 08/24/23 Reason for Consult: Carotid artery occlusive disease, TIA Requesting physician: Jonathon Yost History of present illness: This is a 48-year-old male who presented to the emergency department yesterday with complaints of difficulty speaking. He states symptoms lasted for approximately 10 minutes and then resolved. He denied any other focal deficits. He has known left internal carotid artery occlusion and 70% right cavernous ICA stenosis. Has a past medical history of CVA/TIA, diabetes mellitus, hyperlipidemia, hypertension, myocardial infarction, sleep apnea and former smoker. He was admitted for TIA back in November 2022. He was seen and evaluated by vascular surgery and neurology and had extensive workup at that time. It was recommended by vascular surgery that patient follow-up with a neuro interventionalists for right internal carotid artery stenosis at the petrous and cavernous portion. Patient states he did have a follow-up with the interventional neurologist out of [place] he is unsure of his name and states that he was told surgical intervention was too risky and he would continue medical management. Patient currently on Brilinta 90 mg twice daily, aspirin 81 mg daily and Lipitor 80 mg at at bedtime. Patient currently denies any focal deficits. He had no other focal deficits at the time of difficulty with speech. States that his mind was working but he just could not get the words out that he wanted to say. Again currently no further focal deficits. Denies any shortness of breath, chest pain, abdominal pain, nausea or vomiting. Review of Systems A 14 point review systems was completed all pertinent positives and negatives as stated in the HPI. Past Medical History Past Medical History: CVA/TIA, Diabetes Mellitus, Hyperlipidemia, Hypertension, Myocardial Infarction ([place]), Sleep Apnea/CPAP/BIPAP Additional Past Medical History / Comment(s): 12/19/22-CVA-NO LASTING EFFECTS, Last Myocardial Infarction Date:: 12/19/22 History of Any Multi-Drug Resistant Organisms: None Reported Past Surgical History: Heart Catheterization Additional Past Surgical History / Comment(s): sleep apnea surgery Past Anesthesia/Blood Transfusion Reactions: No Reported Reaction Past Psychological History: No Psychological Hx Reported Smoking Status: Current every day smoker - Past Family History Mother Family Medical History: Myocardial Infarction ([place]) Additional Family Medical History / Comment(s): pts maternal gradfather in his 40;s from a heart attack Medications and Allergies Home Medications Medication Instructions Recorded Confirmed Type Omeprazole Magnesium [PriLOSEC OTC] 20 mg PO DAILY 12/19/22 08/23/23 History Aspirin 81 mg PO DAILY #30 tab 12/22/22 08/23/23 Rx Atorvastatin [Lipitor] 80 mg PO HS #30 tab 12/22/22 08/23/23 Rx Glimepiride [Amaryl] 1 mg PO AC-BRKFST #30 tab 12/22/22 08/23/23 Rx Ticagrelor [Brilinta] 90 mg PO BID #60 tab 12/22/22 08/23/23 Rx amLODIPine [Norvasc] 10 mg PO DAILY #30 tab 12/22/22 08/23/23 Rx Aspirin EC [Ecotrin Low Dose] 81 mg PO DAILY 08/23/23 08/23/23 History Empagliflozin [Jardiance] 25 mg PO DAILY 08/23/23 08/23/23 History lisinopriL [Zestril] 10 mg PO DAILY 08/23/23 08/23/23 History metFORMIN HCL ER [Glucophage XR] 500 mg PO BID 08/23/23 08/23/23 History Allergies Allergy/AdvReac Type Severity Reaction Status Date / Time No Known Allergies Allergy Verified 08/23/23 18:49 Surgical - Exam Vital Signs Temp Pulse Resp BP Pulse Ox 99.2 F 97 20 165/88 99 08/23/23 16:18 08/23/23 16:18 08/23/23 16:18 08/23/23 16:18 08/23/23 16:18 General appearance: The patient is alert, oriented, appears in no acute distress. HET: Head is normocephalic and atraumatic. Pupils are equal and reactive. Neck: Supple. Heart: Regular. Lungs: Equal expansion, normal respiratory effort. Abdomen: Soft, nontender, nondistended. Extremities: Normal skin color and turgor. Neurological: No focal deficits. Strength and sensation are grossly intact. Patient has facial symmetry, speech is clear and appropriate, follows commands. Results - Labs 08/23/23 16:37 08/23/23 16:37 Abnormal Lab Results - Last 24 Hours (Table) 08/23/23 08/23/23 08/23/23 Range/Units 16:37 16:37 21:29 RBC 3.73 L (4.30-5.90) m/uL Hgb 8.3 L (13.0-17.5) gm/dL Hct 26.6 L (39.0-53.0) % MCV 71.1 L (80.0-100.0) fL MCH 22.1 L (25.0-35.0) pg RDW 16.1 H (11.5-15.5) % Plt Count 481 H (150-450) k/uL Chloride 108 H (98-107) mmol/L Glucose 162 H (74-99) mg/dL POC Glucose (mg/dL) 162 H (70-110) mg/dL 08/24/23 Range/Units 08:11 RBC (4.30-5.90) m/uL Hgb (13.0-17.5) gm/dL Hct (39.0-53.0) % MCV (80.0-100.0) fL MCH (25.0-35.0) pg RDW (11.5-15.5) % Plt Count (150-450) k/uL Chloride (98-107) mmol/L Glucose (74-99) mg/dL POC Glucose (mg/dL) 140 H (70-110) mg/dL Diabetes panel 08/23/23 Range/Units 16:37 Sodium 138 (137-145) mmol/L Potassium 3.6 (3.5-5.1) mmol/L Chloride 108 H (98-107) mmol/L Carbon Dioxide 22 (22-30) mmol/L BUN 12 (9-20) mg/dL Creatinine 0.71 (0.66-1.25) mg/dL Glucose 162 H (74-99) mg/dL Calcium 9.1 (8.4-10.2) mg/dL AST 24 (17-59) U/L ALT 27 (4-49) U/L Alkaline Phosphatase 84 (38-126) U/L Total Protein 6.9 (6.3-8.2) g/dL Albumin 4.2 (3.5-5.0) g/dL Calcium panel 08/23/23 Range/Units 16:37 Calcium 9.1 (8.4-10.2) mg/dL Albumin 4.2 (3.5-5.0) g/dL Pituitary panel 08/23/23 Range/Units 16:37 Sodium 138 (137-145) mmol/L Potassium 3.6 (3.5-5.1) mmol/L Chloride 108 H (98-107) mmol/L Carbon Dioxide 22 (22-30) mmol/L BUN 12 (9-20) mg/dL Creatinine 0.71 (0.66-1.25) mg/dL Glucose 162 H (74-99) mg/dL Calcium 9.1 (8.4-10.2) mg/dL Adrenal panel 08/23/23 Range/Units 16:37 Sodium 138 (137-145) mmol/L Potassium 3.6 (3.5-5.1) mmol/L Chloride 108 H (98-107) mmol/L Carbon Dioxide 22 (22-30) mmol/L BUN 12 (9-20) mg/dL Creatinine 0.71 (0.66-1.25) mg/dL Glucose 162 H (74-99) mg/dL Calcium 9.1 (8.4-10.2) mg/dL Total Bilirubin 0.3 (0.2-1.3) mg/dL AST 24 (17-59) U/L ALT 27 (4-49) U/L Alkaline Phosphatase 84 (38-126) U/L Total Protein 6.9 (6.3-8.2) g/dL Albumin 4.2 (3.5-5.0) g/dL - Imaging Comments: Brain CT reports no acute intracranial abnormality seen. Old cortical infarct anterior left parietal lobe and underlying deep white matter. CT angiogram head and neck: Neck reports redemonstrated proximal left ICA occlusion. Redemonstrated severe, greater than 70% stenosis upper cervical right ICA just prior to entering the skull base. Head: Left ICA occlusion continues into the head. There is reconstitution at the supraclinoid portion as seen previously. Redemonstrated severe focal stenosis proximal cavernous segment right ICA. There are other moderate segmental stenosis throughout the right carotid siphon. Assessment and Plan Assessment: 1. Dysarthria 2. Left internal carotid artery occlusion 3. Greater than 70% stenosis of the upper cervical right ICA just prior to entering the skull base with redemonstrated severe focal stenosis of the proximal cavernous segment of the right ICA 4. Former nicotine dependence 5. History of alcohol dependence/abuse Plan: 1. Continue medical therapy with atorvastatin, aspirin, and Brilinta as ordered 2. Tobacco cessation 3. Alcohol abstinence 4. Continue with recommendations from neurology 5. No indication for any vascular surgical intervention for left ICA occlusion. Recommend follow-up and surgical management per neuro-interventionalists for right internal carotid artery stenosis at proximal cavernous segment of right ICA Thank you for this consultation. The impression and plan of care has been dictated as directed. I performed a history and examination of this patient, discussed the same with the dictator. I agree with the dictator's note ,documented as a scribe. Any additional findings or plans will be noted.
--- NOTE | 2023-08-24 15:10 | P.CNNES ---
History of Present Illness Consult date: 08/24/23 Requesting physician: Jonathon Yost Reason for Consult: tia History of Present Illness: This is a 48-year-old gentleman with history of stroke on 2022 in which the patient had right hand weakness and numbness, left ICA occlusion, right ICA stenosis as it enters the petrous portion of at least 70% also involving the cav ernous portion at least 70%, hypertension, tobacco use who presented emergency department because of speech difficulty. He stated that he was at work yesterday in the afternoon around the [employer] and that he was having speech difficulty in which you what he wanted to say but words were coming out wrong or were not coming out at all. The episode lasted between the 5-10 minutes. He states that he is on aspirin 81 mg, Brilinta 90 mg 1 tablet twice a day and Lipitor. According to patient he had diagnostic cerebral angiogram as an outpatient and he thinks happened in [place], [place] was notifiedof surgical intervention. She does not recall the name of the physician that he saw. Patient denies any further tobacco use. It seems that the patient was seen in our facility on [address] Grissom for the stroke and he had acute ischemic stroke and had right hand weakness and numbness. He had MRI which showed a watershed the region infarction over the left MCA JAN territory. he had the occlusion in the left ICA pass origin of the cavernous as well as the had right ICA high-grade stenosis as it enters the petrous portion at least 70% as well as the cavernous at least 70%. Dr. Grissom spoke with Dr. Trent regarding the cause notified him to follow up as an outpatient. There is referred to touch her Praveena's note for further details. Some of the workup during his hospital visit consisted of: Sodium, BUN/Cr CT of the head is reported as no acute intracranial abnormality seen. Old cortical infarct anterior left parietal lobe and underlying deep white matter. I personally reviewed the CT and I agree there is old acute ischemic stroke and is seems watershed infarcts over the left parietal/frontal region. NO acute ischemia. NO bleed. CTA neck: Reported as redemonstrated the proximal left ICA occlusion. Redemonstrated severe greater than 70% upper cervical right ICA just prior to entering the skull base. CTA head: ICA occlusion continues into the head. There is reconstitution at the supraclinoid portion as seen previously. Redemonstrated severe focal stenosis proximal cavernous segment right ICA. There are other moderate segmental stenosis throughout the right carotid siphons. Review of Systems The positive and negative as per HPI. Past Medical History Past Medical History: CVA/TIA, Diabetes Mellitus, Hyperlipidemia, Hypertension, Myocardial Infarction ([place]), Sleep Apnea/CPAP/BIPAP Additional Past Medical History / Comment(s): 12/19/22-CVA-NO LASTING EFFECTS, Last Myocardial Infarction Date:: 12/19/22 History of Any Multi-Drug Resistant Organisms: None Reported Past Surgical History: Heart Catheterization Additional Past Surgical History / Comment(s): sleep apnea surgery Past Anesthesia/Blood Transfusion Reactions: No Reported Reaction Past Psychological History: No Psychological Hx Reported Smoking Status: Current every day smoker - Past Family History Mother Family Medical History: Myocardial Infarction ([place]) Additional Family Medical History / Comment(s): pts maternal gradfather in his 40;s from a heart attack Medications and Allergies Home Medications Medication Instructions Recorded Confirmed Type Omeprazole Magnesium [PriLOSEC OTC] 20 mg PO DAILY 12/19/22 08/23/23 History Aspirin 81 mg PO DAILY #30 tab 12/22/22 08/23/23 Rx Atorvastatin [Lipitor] 80 mg PO HS #30 tab 12/22/22 08/23/23 Rx Glimepiride [Amaryl] 1 mg PO AC-BRKFST #30 tab 12/22/22 08/23/23 Rx Ticagrelor [Brilinta] 90 mg PO BID #60 tab 12/22/22 08/23/23 Rx amLODIPine [Norvasc] 10 mg PO DAILY #30 tab 12/22/22 08/23/23 Rx Aspirin EC [Ecotrin Low Dose] 81 mg PO DAILY 08/23/23 08/23/23 History Empagliflozin [Jardiance] 25 mg PO DAILY 08/23/23 08/23/23 History lisinopriL [Zestril] 10 mg PO DAILY 08/23/23 08/23/23 History metFORMIN HCL ER [Glucophage XR] 500 mg PO BID 08/23/23 08/23/23 History Allergies Allergy/AdvReac Type Severity Reaction Status Date / Time No Known Allergies Allergy Verified 08/23/23 18:49 Physical Examination - Vital Signs Vital Signs: Vital Signs Temp Pulse Resp BP Pulse Ox 08/24/23 14:21 93 20 117/75 100 08/24/23 12:43 83 20 149/86 97 08/24/23 10:52 82 18 165/82 98 08/24/23 08:15 98.3 F 78 16 154/92 97 08/24/23 06:59 78 16 162/90 99 08/24/23 04:32 77 16 150/85 97 08/23/23 23:54 78 16 143/86 98 08/23/23 21:00 18 144/78 08/23/23 20:30 83 17 144/84 08/23/23 20:00 81 25 H 146/79 08/23/23 19:30 83 17 140/75 08/23/23 19:00 81 19 143/83 94 L 08/23/23 18:30 83 21 153/86 94 L 08/23/23 18:00 93 17 162/91 96 08/23/23 17:30 80 16 96 08/23/23 16:18 99.2 F 97 20 165/88 99 Intake and Output 08/23/23 08/24/23 08/24/23 22:59 06:59 14:59 Other: Weight 97.522 kg GENERAL: The patient is lying in bed and is not in acute distress. NEUROLOGICAL: Higher mental function: The patient is awake, alert, oriented to self, place and time. Patient is following commands. No aphasia and no neglect. Cranial nerves: The pupils are round, equal and reactive to light and accommodation. Visual ghosh are full to confrontation throughout. Extraocular movement is intact no nystagmus is noted. Facial sensation is normal to touch throughout. The facial strength is normal throughout. Hearing is normal bilaterally to hand rub. Tongue is midline and moved [id number] without any difficulty. No dysarthria is noted. Shoulder shrug is normal bilaterally. Motor: The strength is 5 over 5 throughout. Normal tone and bulk. Cerebellum: Normal finger to nose heel to chin bilaterally. Sensation: Sensation is normal to touch throughout. Reflexes (right/left): 2+ throughout. Plantars are downgoing bilaterally. Results - Laboratory Findings CBC and BMP: 08/23/23 16:37 08/23/23 16:37 Abnormal Lab Findings: Abnormal Labs 08/23/23 08/23/2308/23/24 16:37 16:37 21:29 RBC 3.73 L Hgb 8.3 L Hct 26.6 L MCV 71.1 L MCH 22.1 L RDW 16.1 H Plt Count 481 H Chloride 108 H Glucose 162 H POC Glucose (mg/dL) 162 H 08/24/23 08/24/23 08:11 11:58 RBC Hgb Hct MCV MCH RDW Plt Count Chloride Glucose POC Glucose (mg/dL) 140 H 131 H Assessment and Plan Assessment: This is a 48-year-old gentleman with history of stroke on 2022 in which the patient had right hand weakness and numbness, left ICA occlusion, right ICA stenosis as it enters the petrous portion of at least 70% also involving the cavernous portion at least 70%, hypertension presents because of expressive apha toni that started on 08/23/2019 4 in the afternoon and lasted between 5-10 minutes. Patient stated that he had diagnostic cerebral angiogram as an outpatient and he thinks he had about 8-9 month ago and was told no surgical intervention at that current time. Likely transient ischemic attack and patient had expressive aphasia. History of stroke and it seems patient had Left MCA/JAN watershed infarct (had right hand weakness and numbness). Known history of left ICA occlusion Known history of right ICA stenosis as it enters the petrous portion of at least 70% also involving the cavernous portion at least 70%, Diabetes mellitus Hypertension Former tobacco use Former significant alcohol use Early family history of cardiovascular disease grandfather and his late 40s had [place]. Plan: MR the brain is ordered and is pending He is resumed on his home dose of aspirin 81 mg, Brilinta 90 mg 1 tablet twice a day and Lipitor 80 mg daily at bedtime. I ordered 2-D echo and lipid panel. Vascular surgery is consulted for the carotid artery disease by ED team and I spoke with N.P of vascular and stated no intervention from their perspective and to follow-up with interventional neurologist. As stated earlier patient stated that he had diagnostic cerebral angiogram less than a year ago and was told no intervention. We'll obtain the MRI and if there is a stroke will speak with our interventions the neurology team. I ordered a routine EEG, vitamin B12, folate. ED ordered HbA1c. Neuro checks Cardiac monitoring I consulted PT, OT and VASCULAR SPECIALISTS Recommend permissive hypertensive for the next 24 hours. Control blood pressure if SBP >220 and DBP >110. We'll defer the rest of the medical medical with the primary team DVT prophylaxis is on Lovenox The plan is discussed with patient. Thank you for the consultation. Time with Patient: Greater than 30
[2023-08-24 16:06] LABS: HCT 27.6 % (39.6-50.0); MCH 20.6 pg (27.0-32.0); MCV 71.1 FL (80.0-97.0); Mean Platelet Volume 9.3 FL (9.5-12.2); NRBC Per 100 WBC 0 X 10*3/uL (0.00-0.01); Platelet Count 466 X 10*3/uL (140-440); RBC 3.88 X 10*6/uL (4.40-5.60); RDW 16.6 % (11.5-14.5)
--- NOTE | 2023-08-24 16:28 | MR ---
EXAMINATION TYPE: MR brain wo/w con DATE OF EXAM: 08/24/2023 4:09 PM CLINICAL INDICATION:Male, 48 years old with history of CVA suspected, possible stroke - slurred speec h - unable to speak for a short period yesterday COMPARISON: 11/24/2022 TECHNIQUE: Multi planar, multi sequence imaging was performed through the brain including: T1, T2, In version recovery, susceptibility weighted imaging and gradient echo imaging and Diffusion weighted im aging. The patient was then given intravenous contrast and multi planar, T1 fat-saturation images wer e obtained. IV Contrast: 10ml cc Gadavist FINDINGS: Continued evolution of left sided scattered infarcts seen on 12/21/2022. No new areas of acu te/subacute infarct compared to 12/21/2022. The pope-white junctions, ventricular system, basal cister ns appear unremarkable. Intracranial arterial flow voids are maintained. Midline structures show no abnormality. Scattered foci of high T2 signal intensity are seen within the periventricular white ma tter. The susceptibility weighted images do not reveal any evidence for micro-hemorrhage. After admin istration of gadolinium, no abnormal enhancement is seen. The bone marrow signal is within normal limits. Paranasal sinuses and mastoid air cells: No significant paranasal sinus disease. Visualized orbits: Orbital contents are intact. IMPRESSION: 1. Evolution of prior foci of infarct within the left cerebrum seen on 12/21/2022 No evidence of intra cranial mass, acute/subacute infarct, or abnormal enhancement. 2. Nonspecific white matter changes, likely related to small vessel ischemic disease.
[2023-08-24 16:31] LABS: Elliptocytes 2+; Hypochromasia (M) 2+; Microcytosis (M) 2+
[2023-08-24 16:32] LABS: Basophils # (A) 0.08 X 10*3/uL (0.00-0.10); Basophils % (A) 1.5 %; Eosinophils # (A) 0.09 X 10*3/uL (0.04-0.35); Eosinophils % (A) 1.7 %; Lymphocytes # (A) 1.09 X 10*3/uL (0.90-5.00); Lymphocytes % (A) 20.6 %; Monocytes # (A) 0.46 X 10*3/uL (0.20-1.00); Monocytes % (A) 8.7 %; Neutrophils # (A) 3.57 X 10*3/uL (1.80-7.70); Neutrophils % (A) 67.3 %
[2023-08-24] MEDS: SODIUM CHLORIDE 0.9% 1,000 ML IV SCH (18:34)
[2023-08-24 20:32] LABS: Glucose,Whole Blood 163 mg/dL (70-110)
[2023-08-24] MEDS: ATORVASTATIN 80 MG TAB PO SCH (20:52)
--- NOTE | 2023-08-24 23:49 | EEG ---
ELECTROENCEPHALOGRAM REPORT CLINICAL HISTORY: This is a 48-year-old gentleman with history of stroke who presents with speech difficulty. The video EEG is obtained to evaluate for seizure and epileptiform activity. RELEVANT MEDICATIONS: The patient is not on any antiepileptic drugs. EEG TYPE: A routine 21-channel EEG with video using the 10/20 electrode placement system. DESCRIPTION: Wakefulness is only obtained. During awake state, the posterior-dominant rhythm consists of aac-rw-ohmllebk voltage of 9.5 hertz activity that is well modulated and sustained. There is no physiological stage 2 sleep architecture. There is no focal slowing. Interictal and ictal is none. ACTIVATION PROCEDURE: Photic stimulation did not evoke a posterior driving response. There is no abnormality during the photic stimulation. Hyperventilation is not performed. CLINICAL INTERPRETATION: This is a normal routine EEG. There is no focal slowing, epileptiform discharge, or seizure on the EEG. A normal routine EEG does not rule out any underlying epilepsy. Clinical correlation is recommended. LESLI / EZRA: [id number] / MTDD
[2023-08-25 03:56] VITALS: RESP 16
[2023-08-25 05:57] LABS: Glucose,Whole Blood 123 mg/dL (70-110)
[2023-08-25] MEDS: INSULIN ASPART (NovoLOG) 100 UNIT/ML VIAL SQ SCH ×2 (05:57→12:36)
[2023-08-25] MEDS: GLIMEPIRIDE 1 MG TAB PO SCH (05:59)
[2023-08-25] MEDS: metFORMIN 500 MG TAB PO SCH (05:59)
[2023-08-25 08:19] VITALS: BP 142/71; PULSE 76; TEMP 98.2
[2023-08-25] MEDS: ASPIRIN 81 MG PO SCH (08:35)
[2023-08-25] MEDS: PANTOPRAZOLE 40 MG/10 ML VIAL IV SCH (08:35)
[2023-08-25] MEDS: amLODIPine 10 MG TAB PO SCH (08:35)
[2023-08-25] MEDS: lisinopriL 10 MG TAB PO SCH (08:35)
[2023-08-25 09:00] LABS: HCT 27.7 % (39.6-50.0); MCHC 28.9 g/dL (32.0-37.0); MCV 72.7 FL (80.0-97.0); Mean Platelet Volume 9.9 FL (9.5-12.2); NRBC Per 100 WBC 0 X 10*3/uL (0.00-0.01); Platelet Count 462 X 10*3/uL (140-440); RBC 3.81 X 10*6/uL (4.40-5.60); RDW 16.7 % (11.5-14.5); WBC 5.35 X 10*3/uL (4.50-10.00)
[2023-08-25] MEDS ORDERED: ENOXAPARIN 40 MG/0.4 ML SYRINGE SQ SCH (09:00)
[2023-08-25 09:04] LABS: % Iron Saturation 2.38 (15.00-50.00); BUN/Creat Ratio 18.14 Ratio (12.00-20.00); Blood Urea Nitrogen 12.7 mg/dL (9.0-27.0); Calcium 9.5 mg/dL (8.7-10.3); Carbon Dioxide 24.2 mmol/L (21.6-31.8); Chloride 107 mmol/L (96-109); Glucose 124 mg/dL (70-110); Iron 12 UG/DL (65-175); Potassium 4.2 mmol/L (3.5-5.5); Sodium 140 mmol/L (135-145); Total Iron Binding Capacity 504 UG/DL (228-460)
[2023-08-25] MEDS: TICAGRELOR 90 MG TAB PO SCH (09:15)
[2023-08-25] MEDS ORDERED: SODIUM FERRIC GLUCONAT-SUCROSE 125 MG in SODIUM CHLORIDE 0.9% 100 ML IVPB SCH (10:00)
[2023-08-25 12:24] LABS: Glucose,Whole Blood 122 mg/dL (70-110)
--- NOTE | 2023-08-25 12:24 | P.DS ---
Providers Date of admission: 08/23/23 17:57 Expected date of discharge: 08/25/23 Attending physician: Khadra Jarvis Consults: 08/23/23 18:00 Consult Physician Urgent Consulting Provider: Benoit Simpson Consult Reason/Comments: TIA Do you want consulting provider notified?: Yes Consult Physician Urgent Consulting Provider: Kim Botello Consult Reason/Comments: TIA, carotid artery occlusive disease Do you want consulting provider notified?: Yes Primary care physician: Da Duran [facility] Course: * 48-year-old gentleman with past medical history significant for CVA, diabetes mellitus, left internal carotid artery occlusion, right internal carotid artery stenosis, chronic right bundle branch block who presents to the emergency department with complaints of slurred speech that started at work. 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 Patient symptom lasted for about 10 minutes. He was accompanied by a coworker and apparently words were coming out gibberish. Patient was able to recall the events. Patient denied any associated dizziness paresthesia in arms or legs. Denies any vision loss. Patient was back to baseline at the time of presentation in ER. Workup initiated in ER included basic metabolic panel which showed sodium of 138 potassium 3.6 BUN 12 creatinine 0.71 INR of 0.9 CBC showed WBC 6.7 hemoglobin 8.3 platelet count of 481 while in the ER patient had NIH score of 0. CT brain was obtained which was negative for acute pathology, old CVA noted in the left parietal lobe, CT angio head and neck demonstrated left and right internal carotid artery stenosis, high-grade complete occlusion of left ICA was noted greater than 70% right ICA stenosis was noted. Vascular surgery was consulted along with neurology consultation. * 08/25/2023: Patient was seen and evaluated at bedside, patient was seen by neurology and cleared for discharge. MRI brain negative, EEG negative. Noted to have severe iron deficiency anemia patient started on IV Venofer, given prescription for oral ferrous sulfate as well. Recommended to follow-up with neurointervention outpatient. at bedside as well instructions provided REVIEW OF SYSTEMS: Dysarthria RESOLVED , expressive aphasia resolved CONSTITUTIONAL: No fever, no malaise, no fatigue. HEENT: No recent visual problems or hearing problems. Denied any sore throat. CARDIOVASCULAR: No chest pain, orthopnea, PND, no palpitations, no syncope. PULMONARY: No shortness of breath, no cough, no hemoptysis. GASTROINTESTINAL: No diarrhea, no nausea, no vomiting, no abdominal pain. NEUROLOGICAL: Dysarthria, expressive aphasia resolved HEMATOLOGICAL: Denies any bleeding or petechiae. GENITOURINARY: Denies any burning micturition, frequency, or urgency. MUSCULOSKELETAL/RHEUMATOLOGICAL: Denies any joint pain, swelling, or any muscle pain. ENDOCRINE: Denies any polyuria or polydipsia. PHYSICAL EXAMINATION: GENERAL: The patient is alert and oriented x3, Well developed, well nourished. HEENT: Pupils are round and equally reacting to light. EOMI. CARDIOVASCULAR: S1 and S2 present. No murmurs, rubs, or gallops. PULMONARY: Chest is clear to auscultation, no wheezing or crackles. ABDOMEN: Soft, nontender, nondistended, normoactive bowel sounds. No palpable organomegaly. MUSCULOSKELETAL: No joint swelling or deformity. EXTREMITIES: No cyanosis, clubbing, or pedal edema. NEUROLOGICAL: Gross neurological examination did not reveal any focal deficits. SKIN: No rashes. Assessment and plan * History of CVA with acute onset expressive aphasia secondary to TIA * History of bilateral carotid artery stenosis * Chronic left parietal lobe infarct * Diabetes mellitus type 2 * Peripheral arterial disease with 80% focal left SFA stenosis * Microcytic anemia, iron deficiency anemia * In regards to acute neurological deficit prior to admission/rule out CVA, CT head CT angio head and neck reviewed, continue neurochecks, neurology consulted continue dual antiplatelet, continue statin MRI brain negative for acute CVA remote changes noted * Regards to bilateral carotid artery stenosis , CT head CT angio head and neck reviewed neurology consulted, for outpatient follow-up with neurointervention, seen by vascular surgery during this hospitalization * In regards to history of hypertension continue patient on amlodipine and lisinopril * In regards to diabetes mellitus Accu-Cheks ACHS continue patient on correctional insulin, continue metformin and glipizide * In regards to history of peripheral arterial disease continue aspirin and Brilinta, continue statin * In regards to microcytic anemia, iron panel ordered fecal occult blood test negative, started on iron supplementation Patient Condition at Discharge: Stable Plan - Discharge Summary New Discharge Prescriptions: New Ferrous Sulfate [Iron (65 MG Elemental)] 325 mg PO DAILY 30 Days #30 tab Continue Omeprazole Magnesium [PriLOSEC OTC] 20 mg PO DAILY Glimepiride [Amaryl] 1 mg PO AC-BRKFST #30 tab amLODIPine [Norvasc] 10 mg PO DAILY #30 tab lisinopriL [Zestril] 10 mg PO DAILY Empagliflozin [Jardiance] 25 mg PO DAILY Aspirin 81 mg PO DAILY #30 tab Ticagrelor [Brilinta] 90 mg PO BID #60 tab Atorvastatin [Lipitor] 80 mg PO HS #30 tab metFORMIN HCL ER [Glucophage XR] 500 mg PO BID Discontinued Aspirin EC [Ecotrin Low Dose] 81 mg PO DAILY Discharge Medication List Omeprazole Magnesium [PriLOSEC OTC] 20 mg PO DAILY 12/19/22 [History] Aspirin 81 mg PO DAILY #30 tab 12/22/22 [Rx] Atorvastatin [Lipitor] 80 mg PO HS #30 tab 12/22/22 [Rx] Glimepiride [Amaryl] 1 mg PO AC-BRKFST #30 tab 12/22/22 [Rx] Ticagrelor [Brilinta] 90 mg PO BID #60 tab 12/22/22 [Rx] amLODIPine [Norvasc] 10 mg PO DAILY #30 tab 12/22/22 [Rx] Empagliflozin [Jardiance] 25 mg PO DAILY 08/23/23 [History] lisinopriL [Zestril] 10 mg PO DAILY 08/23/23 [History] metFORMIN HCL ER [Glucophage XR] 500 mg PO BID 08/23/23 [History] Ferrous Sulfate [Iron (65 MG Elemental)] 325 mg PO DAILY 30 Days #30 tab 08/25/23 [Rx] Follow up Appointment(s)/Referral(s): Da Duran MD [Primary Care Provider] - 1-2 days Discharge Disposition: HOME SELF-CARE
--- NOTE | 2023-08-25 12:25 | CA ---
Transthoracic Echo Report Name: Mikhail Valencia Age: 48 Gender: M : 1975 Exam Date: 08/25/2023 09:39 Exam Location: [facility] Ht (in): 69 Wt (lb): 215 Ordering Physician: Benoit Simpson MD Attending/Referring Phys: Hand Tube Bender Catalina Magallon RDCS Procedure CPT: Indications: stroke Cardiac Hx: Technical Quality: Fair Contrast 1: Total Dose (mL): Contrast 2: Total Dose (mL): MEASUREMENTS (Male / Female) Normal Values 2D ECHO LV Diastolic Diameter PLAX 4.7 cm 4.2 - 5.9 / 3.9 - 5.3 cm LV Systolic Diameter PLAX 3.0 cm IVS Diastolic Thickness 1.2 cm 0.6 - 1.0 / 0.6 - 0.9 cm LVPW Diastolic Thickness 1.2 cm 0.6 - 1.0 / 0.6 - 0.9 cm LV Relative Wall Thickness 0.5 RV Internal Dim ED PLAX 3.4 cm LA Systolic Diameter LX 4.4 cm 3.0 - 4.0 / 2.7 - 3.8 cm LV Diastolic Volume MOD 4C 128.8 cm??? LV Systolic Volume MOD 4C 34.9 cm??? LV Ejection Fraction MOD 4C 72.9 % LV Cardiac Index MOD 4C 3825.3 cm???/min???m??? LV Diastolic Length 4C 9.0 cm LV Systolic Length 4C 6.5 cm LV Diastolic Volume MOD 2C 95.8 cm??? LV Systolic Volume MOD 2C 31.0 cm??? LV Ejection Fraction MOD 2C 67.6 % LV Cardiac Index MOD 2C 2640.5 cm???/min???m??? LV Diastolic Length 2C 9.0 cm LV Systolic Length 2C 7.0 cm LA Volume 83.5 cm??? 18 - 58 / 22 - 52 cm??? LA Volume Index 37.8 cm???/m??? 16 - 28 cm???/m??? M-MODE Aortic Root Diameter MM 3.5 cm MV E Point Septal Separation 0.4 cm AV Cusp Separation MM 2.4 cm DOPPLER AV Peak Velocity 198.7 cm/s AV Peak Gradient 15.8 mmHg AV Mean Velocity 125.2 cm/s AV Mean Gradient 7.2 mmHg AV Velocity Time Integral 35.8 cm LVOT Peak Velocity 132.3 cm/s LVOT Peak Gradient 7.0 mmHg MV Area PHT 3.2 cm??? Mitral E Point Velocity 91.2 cm/s Mitral A Point Velocity 120.3 cm/s Mitral E to A Ratio 0.8 MV Deceleration Time 234.2 ms MV E' Velocity 8.0 cm/s Mitral E to MV E' Ratio 11.4 FINDINGS Left Ventricle Left ventricular ejection fraction is estimated at 55-60 %. Mildly increased septal wall thickness. Left ventricular cavity size normal. No obvious regional wall motion abnormalities. Right Ventricle Mild right ventricular dilatation. Unable to estimate the right ventricular systolic pressure. Right Atrium Normal right atrial size. Left Atrium Mildly increased left atrial diameter. Mitral Valve Structurally normal mitral valve. No mitral regurgitation. Aortic Valve Trileaflet aortic valve. No aortic valve stenosis or regurgitation. Tricuspid Valve Structurally normal tricuspid valve. No tricuspid regurgitation. Pulmonic Valve Structurally normal pulmonic valve. No pulmonic regurgitation. Pericardium No pericardial effusion. Aorta Normal size aortic root and proximal ascending aorta. CONCLUSIONS Left ventricular ejection fraction is estimated at 55-60 %. Mildly increased septal wall thickness. No obvious regional wall motion abnormalities. Mild LA dilatation No pericardial effusion. Previewed by: Dr Salo Mohamud (Electronically Signed) Final Date: 25 August 2023 12:24
--- NOTE | 2023-08-25 17:21 | P.PN ---
Subjective Progress Note Date: 08/25/23 I am following up with the patient and he is back to baseline. He is accompanied with his and it seems the patient follows up with Dr. Wick with the neuro interventional. He had a diagnostic cerebral angiogram and according to the he was told no surgical intervention because of high risk. He has a common up appointment with Dr. Wick this Tuesday. Objective - Vital Signs Vital signs: Vital Signs Temp 98.2 F 08/25/23 07:00 Pulse 76 08/25/23 07:00 Resp 16 08/25/23 07:00 BP 142/71 08/25/23 07:00 Pulse Ox 99 08/25/23 07:00 FiO2 Intake & Output 08/24/23 08/25/23 08/25/23 18:59 06:59 18:59 Weight 97.522 kg Other: # Voids 1 - Exam GENERAL: The patient is lying in bed and is not in acute distress. NEUROLOGICAL: Higher mental function: The patient is awake, alert, oriented to self, place and time. Patient is following commands. No aphasia and no neglect. Cranial nerves: The pupils are round, equal and reactive to light and accommodation. Visual ghosh are full to confrontation throughout. Extraocular movement is intact no nystagmus is noted. Facial sensation is normal to touch throughout. The facial strength is normal throughout. Hearing is normal bilaterally to hand rub. Tongue is midline and moved [id number] without any difficulty. No dysarthria is noted. Shoulder shrug is normal bilaterally. Motor: The strength is 5 over 5 throughout. Normal tone and bulk. Cerebellum: Normal finger to nose heel to chin bilaterally. Sensation: Sensation is normal to touch throughout. Reflexes (right/left): 2+ throughout. Plantars are downgoing bilaterally. Some of the workup during his hospital visit consisted of: Sodium, BUN/Cr Hemoglobin is 8.0 and platelets are 400's. hemoglobin A1c is 6.6 Vitamin B12: 325 Folate: 18.8 CT of the head is reported as no acute intracranial abnormality seen. Old cortical infarct anterior left parietal lobe and underlying deep white matter. I personally reviewed the CT and I agree there is old acute ischemic stroke and is seems watershed infarcts over the left parietal/frontal region. NO acute ischemia. NO bleed. CTA neck: Reported as redemonstrated the proximal left ICA occlusion. Redemonstrated severe greater than 70% upper cervical right ICA just prior to entering the skull base. CTA head: ICA occlusion continues into the head. There is reconstitution at the supraclinoid portion as seen previously. Redemonstrated severe focal stenosis p roximal cavernous segment right ICA. There are other moderate segmental stenosis throughout the right carotid siphons. MRI Brain it is reported as evolution of prior foci of infarct within the left cerebrum seen on 12/21/2022. No evidence of intracranial mass , acute/subacute infarct or abnormal enhancement. Nonspecific white matter changes, likely related to small vessel ischemic disease. I personally reviewed the MRI and there is no acute or subacute ischemia seen. Routine EEG is normal. 2-D echo was reported as left ventricular ejection fraction 55-60%. Mild increased septal wall thickness. mild left atrium dilation. - Labs CBC & Chem 7: 08/25/23 03:21 08/25/23 03:21 Labs: Abnormal Lab Results - Last 24 Hours (Table) 08/24/23 08/25/23 08/25/23 Range/Units 20:30 03:21 03:21 RBC 3.81 L (4.40-5.60) X 10*6/uL Hgb 8.0 L (13.0-17.0) g/dL Hct 27.7 L (39.6-50.0) % MCV 72.7 L (80.0-97.0) FL MCH 21.0 L (27.0-32.0) pg MCHC 28.9 L (32.0-37.0) g/dL RDW 16.7 H (11.5-14.5) % Plt Count 462 H (140-440) X 10*3/uL Glucose 124 H (70-110) mg/dL POC Glucose (mg/dL) 163 H (70-110) mg/dL Iron 12 L (65-175) UG/DL TIBC 504 H (228-460) UG/DL % Saturation 2.38 L (15.00-50.00) Transferrin 360.0 H (204.0-354.0) mg/dL 08/25/23 08/25/23 Range/Units 05:54 12:23 RBC (4.40-5.60) X 10*6/uL Hgb (13.0-17.0) g/dL Hct (39.6-50.0) % MCV (80.0-97.0) FL MCH (27.0-32.0) pg MCHC (32.0-37.0) g/dL RDW (11.5-14.5) % Plt Count (140-440) X 10*3/uL Glucose (70-110) mg/dL POC Glucose (mg/dL) 123 H 122 H (70-110) mg/dL Iron (65-175) UG/DL TIBC (228-460) UG/DL % Saturation (15.00-50.00) Transferrin (204.0-354.0) mg/dL Assessment and Plan Assessment: This is a 48-year-old gentleman with history of stroke on 2022 in which the patient had right hand weakness and numbness, left ICA occlusion, right ICA stenosis as it enters the petrous portion of at least 70% also involving the cavernous portion at least 70%, hypertension presents because of expressive aphasia that started on 08/23/2019 4 in the afternoon and lasted between 5-10 minutes. Patient stated that he had diagnostic cerebral angiogram as an outpatient and he thinks he had about 8-9 month ago and was told no surgical intervention at that current time. Transient ischemic attack (had expressive aphasia). MRI Brain is negative for acute or subacute ischemia. ROutine EEG is normal. History of stroke and it seems patient had Left MCA/JAN watershed infarct (had right hand weakness and numbness). Known history of left ICA occlusion Known history of right ICA stenosis as it enters the petrous portion of at least 70% also involving the cavernous portion at least 70%, Diabetes mellitus Hypertension Microcytic anemia Former tobacco use Former significant alcohol use Early family history of cardiovascular disease grandfather and his late 40s had [place]. Plan: He is resumed on his home dose of aspirin 81 mg, Brilinta 90 mg 1 tablet twice a day and Lipitor 80 mg daily at bedtime. Vascular surgery is consulted for the carotid artery disease by ED team and I spoke with [facility] and stated no intervention from their perspective and to follow-up with interventional neurologist. Patient follow-up with Dr. Wick (Interventional Neurologist) and had diagnostic cerebral angiogram and per was told no intervention since high risk for surgery. He has a coming-up appointment this Tuesday. Neuro checks Cardiac monitoring PT, OT and [facility] STOMPER are consulted. We'll defer the rest of the medical medical with the primary team DVT prophylaxis is on Lovenox The plan is discussed with patient, his who is at bedside and his nurse. There is no further neurological work-up. Time with Patient: Less than 30
== END 2023-08-25 12:58 | disposition home or self-care (01) ==
LOC: EC 16:13 → 6NMEDSUR 17:57
PROVIDERS: ADMIT Internal Medicine; ATTEND Internal Medicine
DX: I65.23 Occlusion and stenosis of bilateral carotid arteries (principal); R47.81 Slurred speech; I45.10 Unspecified right bundle-branch block; D50.9 Iron deficiency anemia, unspecified; E11.51 Type 2 diabetes mellitus with diabetic peripheral angiopathy without gangrene; I25.2 Old myocardial infarction; E78.5 Hyperlipidemia, unspecified; R53.1 Weakness; R20.0 Anesthesia of skin; R29.700 NIHSS score 0; I10 Essential (primary) hypertension; I63.9 Cerebral infarction, unspecified; I69.320 Aphasia following cerebral infarction; Z79.84 Long term (current) use of oral hypoglycemic drugs; Z79.899 Other long term (current) drug therapy; Z79.82 Long term (current) use of aspirin; Z82.49 Family history of ischemic heart disease and other diseases of the circulatory system; Z87.891 Personal history of nicotine dependence
CPT/HCPCS: 96361; 96365; 96366 ×2; 96367; 99285; 36415; 95816; 93005; 93306; 80053; 80048; 82607; 82550; 82746; 83540; 83550; 83735; 84484; 85025 ×2; 85027; 85610; 85730; 82272; 83036; 71046; 70496; 70450; 70498; 70553; G0378 ×3; J2916; C9113 ×2; Q9967; A9585

== ENCOUNTER → 2023-12-12 | Outpatient (CLI) | payer BC ==
[2023-12-12 15:44] LABS: Blood Urea Nitrogen 14.8 mg/dL (9.0-27.0); Chol/HDL Ratio 2.65 Ratio; Glucose 171 mg/dL (70-110); LDL Cholesterol,Calculated 80.7 mg/dL (0.0-131.0); VLDL Calculation 11.38 mg/dL (5.00-40.00)
[2023-12-12 15:45] LABS: ALT 26 U/L (10-49); AST 18 U/L (14-35); Albumin 4.5 g/dL (3.8-4.9); Albumin/Globulin Ratio 1.96 Ratio (1.60-3.17); Alkaline Phosphatase 79 U/L (41-126); Calcium 9.6 mg/dL (8.7-10.3); Carbon Dioxide 22.8 mmol/L (21.6-31.8); Chloride 107 mmol/L (96-109); Globulin 2.3 g/dL (1.6-3.3); Potassium 5.2 mmol/L (3.5-5.5); Sodium 141 mmol/L (135-145); Total Bilirubin <0.2 mg/dL (0.3-1.2); Total Protein 6.8 g/dL (6.2-8.2)
== END | disposition home or self-care (01) ==
LOC: LABWHC1 08:24
PROVIDERS: ATTEND Internal Medicine Interventional Cardiology
DX: E78.2 Mixed hyperlipidemia (principal)
CPT/HCPCS: 36415; 80053; 80061

== ENCOUNTER → 2024-12-04 | Outpatient (CLI) | payer BC ==
[2024-12-04 15:46] LABS: ALT 31 U/L (10-49); AST 23 U/L (14-35); Albumin 4.5 g/dL (3.8-4.9); Albumin/Globulin Ratio 2.05 Ratio (1.60-3.17); Alkaline Phosphatase 63 U/L (41-126); BUN/Creat Ratio 25.43 Ratio (12.00-20.00); Blood Urea Nitrogen 17.8 mg/dL (9.0-27.0); Calcium 9.5 mg/dL (8.7-10.3); Carbon Dioxide 22.3 mmol/L (21.6-31.8); Chloride 107 mmol/L (96-109); Chol/HDL Ratio 1.86 Ratio; Globulin 2.2 g/dL (1.6-3.3); Glucose 128 mg/dL (70-110); LDL Cholesterol,Calculated 52.6 mg/dL (0.0-131.0); Potassium 4.5 mmol/L (3.5-5.5); Sodium 143 mmol/L (135-145); Total Bilirubin 0.5 mg/dL (0.3-1.2); Total Protein 6.7 g/dL (6.2-8.2); VLDL Calculation 9.16 mg/dL (5.00-40.00)
== END | disposition home or self-care (01) ==
LOC: LABWHC1 07:37
PROVIDERS: ATTEND Internal Medicine Interventional Cardiology
DX: E78.2 Mixed hyperlipidemia (principal)
CPT/HCPCS: 36415; 80053; 80061